=== PATIENT | male | born 1935 | race Caucasian/White ===

== ENCOUNTER 2020-04-20 10:00 | Outpatient (REF) | payer MEDICARE, SELFPAY ==
--- NOTE | 2020-04-20 | US_ITS ---
EXAMINATION: US THYROID CLINICAL INFORMATION: Nontoxic goiter. COMPARISON: Thyroid soft tissues dated 04/01/2019 and 03/30/2018. TECHNIQUE: Linear transducer cotto-scale and color Doppler examination with attention to the region of the thyroid. FINDINGS: SIZE: Measurements of the thyroid lobes and nodules are given in sagittal, anteroposterior and transverse dimensions respectively. Right Thyroid Lobe: 5.2 x 2.7 x 1.7 cm, volume 12.5 mL. Previously 4.4 x 1.7 x 1.6 cm, volume 6.3 mL. Parenchyma: The gland echotexture is heterogeneous. Thyroid vascularity is normal. Left Thyroid Lobe: 4.8 x 2.1 x 1.8 cm, volume 9.5 mL. Previously 4.2 x 2.3 x 1.5 cm, volume 7.2 mL. Parenchyma: The gland echotexture is heterogeneous. Thyroid vascularity is normal. Isthmus: 0.7 cm in maximum AP dimension. Previously 0.7 cm. RIGHT THYROID LOBE: There are 2 nodules seen. 1. Location: Upper. Size: 1.3 x 1.0 x 1.2 cm. Previous: 1.5 x 1.0 x 1.1 cm. Nodule characteristics: Solid and heterogeneously isoechoic with smooth margins. No evidence of calcifications or intranodular flow. No significant interval change. 2. Location: Lower. Size: 2.2 x 2.3 x 1.5 cm. Previous: New from previous. Nodule characteristics: It is unclear if this is truly a separate nodule or a pseudonodule due to the patient's underlying glandular heterogeneity. The area is very similar to the surrounding heterogeneous thyroid tissue. ISTHMUS: No nodules. LEFT THYROID LOBE: There is 1 nodule seen. 1. Location: Upper. Size: 0.7 x 0.5 x 0.6 cm. Previous: 0.7 x 0.6 x 0.6 cm. Nodule characteristics: Heterogeneously hypoechoic with smooth margins. No evidence of calcifications or intranodular flow. No significant interval change. NODES: No lymphadenopathy is seen in the tissue surrounding the thyroid gland. US/US thyroid IMPRESSION: Evaluation is limited due to the bulkiness and heterogeneity of the underlying thyroid tissue. There may be a new lower pole lesion within the right thyroid, however, this could also represent a pseudonodule. Continued sonographic surveillance is recommended. The 2 nodules that were already described are not significantly changed.
== END 2020-04-20 10:01 | disposition home or self-care (01) ==
LOC: HO.HMGCX 10:00
PROVIDERS: PCP Family Medicine; Visit Provider Family Medicine
DX: E04.9 Nontoxic goiter, unspecified (principal)
CPT/HCPCS: 76536

== ENCOUNTER 2020-04-30 15:13 | Outpatient (REF) | payer MEDICARE, SELFPAY | END 2020-04-30 15:14 | disposition home or self-care (01) | LOC: HO.LAB 15:13 | PROVIDERS: Visit Provider Internal Medicine | DX: Z20.828 Contact with and (suspected) exposure to other viral communicable diseases (principal) | CPT/HCPCS: C9803; U0003 ==

== ENCOUNTER 2020-05-12 12:54 | Outpatient (REF) | payer MEDICARE, SELFPAY ==
[2020-05-12 14:27] LABS: Alanine Aminotransferase 27 U/L (0-40); Anion Gap 11 (12-20); Blood Urea Nitrogen 13 mg/dL (9-16); Carbon Dioxide 29 mmol/L (22-29); Chloride 104 mmol/L (96-108); Potassium 4.9 mmol/l (3.3-5.1); Sodium 139 mmol/L (135-145)
== END 2020-05-12 12:55 | disposition home or self-care (01) ==
LOC: HO.HMGCLDS 12:54
PROVIDERS: PCP Family Medicine; Visit Provider Family Medicine
DX: I10 Essential (primary) hypertension (principal); E78.00 Pure hypercholesterolemia, unspecified; Z79.899 Other long term (current) drug therapy
CPT/HCPCS: 80051; 82550; 84460; 84520

== ENCOUNTER 2021-03-18 11:56 | Outpatient (REF) | payer MEDICARE, SELFPAY ==
[2021-03-18 12:59] LABS: Alanine Aminotransferase 24 U/L (0-40); Anion Gap 12 (12-20); Blood Urea Nitrogen 10 mg/dL (9-16); Carbon Dioxide 27 mmol/L (22-29); Chloride 104 mmol/L (96-108); Estimated Glomerular Filt Rate > 60; Potassium 4.6 mmol/L (3.3-5.1); Sodium 138 mmol/L (135-145)
== END 2021-03-18 11:57 | disposition home or self-care (01) ==
LOC: HO.LAB 11:56
PROVIDERS: PCP Family Medicine; Visit Provider Family Medicine
DX: I10 Essential (primary) hypertension (principal); E78.00 Pure hypercholesterolemia, unspecified; Z79.899 Other long term (current) drug therapy
CPT/HCPCS: 36415; 80051; 82550; 82565; 84460; 84520

== ENCOUNTER 2021-06-23 09:52 | Outpatient (REF) | payer MEDICARE, SELFPAY ==
--- NOTE | ~2021-06-23 | US_ITS ---
EXAMINATION: US THYROID CLINICAL INFORMATION: Follow-up thyroid nodules. COMPARISON: Ultrasound neck 04/20/2020. TECHNIQUE: Linear transducer grayscale and color Doppler examination with attention to the region of the thyroid. FINDINGS: SIZE: Measurements of the thyroid lobes and nodules are given in sagittal, anteroposterior and transverse dimensions respectively. Right Thyroid Lobe: 5.4 x 2.9 x 2.2 cm, volume 18.0 mL. Previously measured 5.2 x 2.7 x 1.7 cm and volume 12.5 mL. Parenchyma: The gland echotexture is heterogeneous. Thyroid vascularity is normal. Left Thyroid Lobe: 4.9 x 2.4 x 1.7 cm, volume 10.5 mL. Previously it measured 4.8 x 2.1 x 1.8 cm and volume 9.5 mL. Parenchyma: The gland echotexture is heterogeneous. Thyroid vascularity is normal. Isthmus: 0.6 cm in maximum AP dimension. Previously it measured 0.7 cm. Estimated total number of nodules greater than or equal to 1 cm: 1. Tank Car Loader nodules are described as follows: 1. Location: Right upper pole. Size: 1.0 x 0.7 x 1.0 cm, volume 0.4 mL. Previously it measured 1.3 x 1.0 x 1.2 cm and volume 0.8 mL. Nodule characteristics: Composition: Solid (2). Echogenicity: Hyperechoic (1). Shape: Wider than taller Margins: Smooth (0). Echogenic Foci: None (0). ACR TI-RADS total points: 3 ACR TI-RADS category: 3 2. Location: Right lower pole nodule seen previously is not visualized at this time. 3. Location: Left upper pole. Size: 0.6 x 0.6 x 0.5 cm, volume 0.1 mL. Previously it measured 0.7 x 0.5 x 0.6 cm and volume 0.1 mL. Nodule characteristics: Composition: Solid (2). Echogenicity: Hypoechoic Shape: Wider than taller Margins: Smooth (0). Echogenic Foci: None (0). ACR TI-RADS total points: 4 ACR TI-RADS category: 4 NODES: No lymphadenopathy is seen in the tissue surrounding the thyroid gland. US/US thyroid IMPRESSION: 2 cm and subcentimeter nodules seen in the right and left lobe which are non suspicious at this time by TI-RADS. ACR TI-RADS RECOMMENDATION REFERENCE: Ultrasound-guided fine-needle aspiration, followup ultrasound, no further follow up. * TR1 (0 point) and TR 2 (2 points): No FNA or follow up * TR3 (3 points): FNA if more than or equal to 2.5 cm in maximum dimension, followup ultrasound in 1, 3 and 5 years if 1.5 to 2.4 cm in maximum dimension. * TR4 (4-6 points): FNA if more than or equal to 1.5 cm in maximum dimension, followup ultrasound in 1, 2, 3 and 5 years if 1 to 1.4 cm in maximum dimension. * TR5 (more than or equal to 7 points): FNA if more than or equal to 1 cm in maximum dimension, followup ultrasound every year for 5 years if 0.5 to 0.9 cm in maximum dimension. * TR3, TR4 or TR5 nodules that are below the size threshold for follow up receive no follow up.
== END 2021-06-23 09:53 | disposition home or self-care (01) ==
LOC: HO.US 09:52
PROVIDERS: PCP Family Medicine; Visit Provider Family Medicine
DX: E04.2 Nontoxic multinodular goiter (principal)
CPT/HCPCS: 76536

== ENCOUNTER 2021-09-28 10:48 | Outpatient (REF) | payer MEDICARE, SELFPAY ==
[2021-09-28 12:30] LABS: Anion Gap 13 (12-20); Blood Urea Nitrogen 17 mg/dL (9-16); Carbon Dioxide 24 mmol/L (22-29); Chloride 105 mmol/L (96-108); Estimated Glomerular Filt Rate > 60; Potassium 4.8 mmol/L (3.3-5.1); Sodium 137 mmol/L (135-145)
== END 2021-09-28 10:49 | disposition home or self-care (01) ==
LOC: HO.LAB 10:48
PROVIDERS: PCP Family Medicine; Visit Provider Family Medicine
DX: I10 Essential (primary) hypertension (principal)
CPT/HCPCS: 36415; 80051; 82565; 84520

== ENCOUNTER 2021-12-29 10:41 | Outpatient (REF) | payer MEDICARE, SELFPAY ==
--- NOTE | ~2021-12-29 | XR_ITS ---
EXAMINATION: XR SHOULDER, LEFT CLINICAL INFORMATION: Pain. COMPARISON: Radiographs dated 08/01/2009. TECHNIQUE: AP neutral, scapular Y, and axillary views of the left shoulder. FINDINGS: Bony alignment and mineralization are normal. The left glenohumeral joint is intact. 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 The acromioclavicular and coracoclavicular intervals are normal. There is mild osteoarthritic change of the left acromioclavicular joint. No fracture or dislocation is seen. There is cortical irregularity of the greater tuberosity of the proximal left humerus. No abnormal soft tissue calcification is seen. There is no foreign body. No left pneumothorax is seen. XR/XR shoulder LT min 2V IMPRESSION: 1. 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 Findings are similar to prior. 2. No fracture or dislocation is seen.
== END 2021-12-29 10:42 | disposition home or self-care (01) ==
LOC: HO.HOSX 10:41
PROVIDERS: Visit Provider Physician Assistant
DX: S46.212A Strain of muscle, fascia and tendon of other parts of biceps, left arm, initial encounter (principal)
CPT/HCPCS: 73030; 99212

== ENCOUNTER 2022-03-28 10:52 | Outpatient (REF) | payer MEDICARE, SELFPAY ==
[2022-03-28 14:14] LABS: Alanine Aminotransferase 21 U/L (0-40); Anion Gap 13 (12-20); Blood Urea Nitrogen 16 mg/dL (9-16); Carbon Dioxide 26 mmol/L (22-29); Chloride 103 mmol/L (96-108); Estimated Glomerular Filt Rate > 60; Potassium 4.5 mmol/L (3.3-5.1); Sodium 137 mmol/L (135-145)
== END 2022-03-28 10:53 | disposition home or self-care (01) ==
LOC: HO.HMGCLDS 10:52
PROVIDERS: PCP Family Medicine; Visit Provider Family Medicine
DX: I10 Essential (primary) hypertension (principal); E78.00 Pure hypercholesterolemia, unspecified; Z79.899 Other long term (current) drug therapy
CPT/HCPCS: 36415; 80051; 82550; 82565; 84460; 84520

== ENCOUNTER 2022-05-25 13:08 | Outpatient (REF) | payer MEDICARE, SELFPAY ==
[2022-05-25 13:28] LABS: MANUAL DIFF FLAG NO
[2022-05-25 13:47] LABS: Basophils Percent Auto 0.3 % (0-2); Eosinophils Absolute Auto 0.1 X10*3/uL (0.0-0.4); Eosinophils Percent Auto 1.7 % (0-4); Hematocrit 35.1 % (42.0-52.0); Hemoglobin 11.7 g/dl (14.0-18.0); Imm Gran Abs Auto 0.01 X10*3/uL (0.00-0.03); Imm Gran Pct Auto 0.2 % (0.0-0.4); Lymphocytes Absolute Auto 1.6 X10*3/uL (1.2-4.9); Lymphocytes Percent Auto 28.2 % (20-40); Mean Corpuscular HGB Conc 33.3 g/dl (31.0-36.0); Mean Corpuscular Hemoglobin 31.5 pg (27.0-33.0); Mean Corpuscular Volume 94.6 fL (80.0-98.0); Mean Platelet Volume 8.2 fL (9.4-12.4); Monocytes Absolute Auto 0.9 X10*3/uL (0.1-1.2); Monocytes Percent Auto 15.1 % (2-11); Neutrophils Absolute Auto 3.1 x10*3/uL (2.0-8.3); Neutrophils Percent Auto 54.5 % (45-73); Platelet Count 313 X10*3/uL (160-400); Red Blood Count 3.71 X10*6/uL (4.60-5.80); Red Cell Distribution Width 12.7 % (11.0-16.0); White Blood Count 5.8 X10*3/uL (4.8-10.8)
[2022-05-25 14:30] LABS: Erythrocyte Sedimentation Rate 17 MM/HR (0-15)
[2022-05-25 14:57] LABS: Alanine Aminotransferase 24 U/L (0-40); Albumin Level 3.3 g/dL (3.5-5.0); Alkaline Phosphatase 57 U/L (39-117); Amylase 39 U/L (28-100); Aspartate Amino Transferase 27 U/L (5-37); Bilirubin Direct 0.2 mg/dL (0.0-0.5); Bilirubin Total 0.4 mg/dL (0.0-1.0); Lipase 42 U/L (8-78); Total Protein 5.6 g/dL (6.5-8.0)
== END 2022-05-25 13:09 | disposition home or self-care (01) ==
LOC: HO.LAB 13:08
PROVIDERS: PCP Family Medicine; Visit Provider Family Medicine
DX: R10.13 Epigastric pain (principal); R63.4 Abnormal weight loss
CPT/HCPCS: 36415; 80076; 82150; 82378; 83690; 85025; 85652

== ENCOUNTER 2022-05-26 11:32 | Outpatient (REF) | payer MEDICARE, SELFPAY ==
[2022-05-26 12:04] LABS: MANUAL DIFF FLAG NO
[2022-05-26 12:11] LABS: Basophils Percent Auto 0.4 % (0-2); Eosinophils Absolute Auto 0.1 X10*3/uL (0.0-0.4); Eosinophils Percent Auto 1.2 % (0-4); Hematocrit 38.6 % (42.0-52.0); Imm Gran Abs Auto 0.01 X10*3/uL (0.00-0.03); Imm Gran Pct Auto 0.1 % (0.0-0.4); Immature Retic Fraction 9.7 % (2.3-13.4); Lymphocytes Absolute Auto 1.9 X10*3/uL (1.2-4.9); Lymphocytes Percent Auto 27.7 % (20-40); Mean Corpuscular HGB Conc 33.7 g/dl (31.0-36.0); Mean Corpuscular Volume 95.1 fL (80.0-98.0); Mean Platelet Volume 8.3 fL (9.4-12.4); Monocytes Absolute Auto 1.1 X10*3/uL (0.1-1.2); Monocytes Percent Auto 15.3 % (2-11); Neutrophils Absolute Auto 3.8 x10*3/uL (2.0-8.3); Neutrophils Percent Auto 55.3 % (45-73); Platelet Count 317 X10*3/uL (160-400); Red Blood Count 4.06 X10*6/uL (4.60-5.80); Red Cell Distribution Width 12.7 % (11.0-16.0); Retic HGB Equivalent 35.8 pg (30.0-35.0); Reticulocyte Percent 0.9 % (0.5-1.8); Reticulocytes Absolute 0.036 X10*6/uL (0.026-0.095); White Blood Count 6.9 X10*3/uL (4.8-10.8)
[2022-05-26 12:54] LABS: Erythrocyte Sedimentation Rate 17 MM/HR (0-15)
[2022-05-26 13:12] LABS: Anion Gap 12 (12-20); Blood Urea Nitrogen 13 mg/dL (9-16); Carbon Dioxide 26 mmol/L (22-29); Chloride 100 mmol/L (96-108); Estimated Glomerular Filt Rate > 60; Ferritin 250 ng/mL (20-250); Iron 28 mcg/dL (45-160); Lactate Dehydrogenase 228 U/L (118-273); Percent Iron Saturation 15 % (15-50); Sodium 133 mmol/L (135-145); Total Iron Binding Capacity 189 mcg/dL (228-428); Unsaturated Iron Binding 161 ug/dL
[2022-05-26 13:23] LABS: Folate 18.1 ng/mL (> or = 4.0); Vitamin B12 473 pg/mL (200-900)
== END 2022-05-26 11:33 | disposition home or self-care (01) ==
LOC: HO.LAB 11:32
PROVIDERS: PCP Family Medicine; Visit Provider Family Medicine
DX: D64.9 Anemia, unspecified (principal); R53.81 Other malaise
CPT/HCPCS: 36415; 80051; 82565; 82607; 82728; 82746; 83540; 83615; 84520; 85025; 85045; 85652

== ENCOUNTER 2022-06-20 10:58 | Day surgery (SDC) | payer MEDICARE, SELFPAY ==
[2022-06-20] VITALS (7 sets, daily range): BP systolic 89–131; BP diastolic 46–63; PULSE 61–73; RESP 16; TEMP 36.3–36.9; O2SAT 96–100; BMI 22.6
--- NOTE | ~2022-06-20 | CT_ITS ---
EXAMINATION: CT COLONOGRAPHY CLINICAL INFORMATION: Obstructing mass at 50 cm. Assess more proximal colon COMPARISON: Portions of a CT 06/07/22 TECHNIQUE: Bowel preparation: Suboptimal. Stool tagging with Gastrografin and barium: Not utilized. Colonic distention: CO2 mechanical insufflator used via enema tube with incomplete distention. Acquisition: Low dose imaging targeted to colonic was performed in the supine and prone positions. Procedure: No immediate complication reported. Review: The acquired images were reviewed in axial, coronal and sagittal planes. Additional 3-D fly through images were reviewed at an independent workstation. This CT examination was performed using dose optimization techniques as appropriate, variously including the following: *Automated exposure control *Adjustment of mA and/or kV according to patient size (this includes techniques or standardized protocols for targeted exams where dose is matched to indication/reason for exam; i.e. extremities or head) *Use of iterative reconstruction technique DLP: 356 mGy-cm FINDINGS: [employer] Supervisor demonstrates narrowing in the proximal descending colon. Colonic findings: There is a large amount of retained fluid and some fecal residue. There is incomplete distention. There is an irregular circumferential 5 cm segment of fixed irregular narrowing in the proximal descending colon concerning for malignancy. Tissue diagnosis warranted. Although there is no large lesion in the more proximal colon smaller moderate-sized abnormalities could be obscured. Multiple retained densities in the more proximal colon could represent tablets. There is diverticular disease most numerous in the sigmoid colon. Non-colonic findings: There is at least a few nonspecific mesenteric lymph nodes. No large omental or mesenteric masses on this limited assessment. No convincing liver lesions on nonenhanced examination. No suspicious nodules in the visualized lung bases. CT/CT colonography IMPRESSION: Limited study. Circumferential narrowing likely related to malignancy in the proximal descending colon. No large abnormality on limited assessment of the more proximal colon.
[2022-06-20] MEDS: Lactated Ringers 1,000 ML 80 ML IVCONT (12:06)
--- NOTE | 2022-06-20 12:22 | P.CONAN_ITS ---
[facility] Active Problems Active Problems: All Active Problems (Updated 06/17/22 @ 12:24 by Myra Cason RN) Impacted cerumen of both ears (Acute) Tear of left biceps muscle (Acute) Past Medical History Medical History (Updated 06/17/22 @ 12:24 by Myra Cason RN) Abnormal colonoscopy Former smoker HTN (hypertension) Hyperlipidemia Family History Family history of problems with anesthesia: No Surgical History Surgical History (Updated 06/17/22 @ 12:24 by Myra Cason RN) History of appendectomy History of neck surgery History of Problems with Anesthesia: No Social History Social History Patient Tobacco Use Status: Former Tobacco user Use of substances other than those prescribed or required for medical reasons: No Are you DNR?: Yes Advance Directives: No Advance Directives Information Provided: Yes Current occupational status: retired 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 boulardii)) ascorbate calcium (vitamin C) 500 500 mg PO DAILY 06/01/21 12/15/21 Unknown History mg tablet aspirin 81 mg tablet,delayed 81 mg PO DAILY 06/01/21 12/15/21 Unknown History release (Adult Aspirin Regimen) cholecalciferol (vitamin D3) 50 50 mcg PO DAILY 06/01/21 12/15/21 Unknown History mcg (2,000 unit) capsule famotidine 40 mg tablet 40 mg PO QPM 06/01/21 12/15/21 Unknown History lisinopril 2.5 mg tablet 2.5 mg PO DAILY 06/01/21 06/20/22 06/20/22 History pebtwiwl-bie-bksmj acid 300 1 tab PO DAILY 06/01/21 12/15/21 Unknown History mcg-lycopene 600 mcg-lutein 300 mcg tablet (Centrum Silver Men) simvastatin 20 mg tablet 20 mg PO DAILY 06/01/21 12/15/21 Unknown History meloxicam 15 mg tablet 15 mg PO DAILY PRN 12/29/21 Unknown History Exam Exam Date and Time: June 20, 2022 1223 Height,Weight and Vital Signs: Height 5 ft 11 in Weight 73.482 kg Last Vital Signs Temp 98.1 F 06/20/22 11:51 Pulse 73 06/20/22 11:51 Resp 16 06/20/22 11:51 BP 131/63 06/20/22 11:51 Pulse Ox 98 06/20/22 11:51 O2 Del Method 06/20/22 11:51 Airway Mallampati Class: II TM Dist: >3cm Neck ROM: Full Partial: Upper Heart: rr Lungs: cta Assessment and Plan Assessment Anesthesia Assessment: Anesthesia Plan Discussed and Chart Reviewed Final Anesthetic Review Family History of Problems with Anesthesia: No History of Problems with Anesthesia: No NPO: Yes ASA Class: II Final Preanesthetic Review: No Changes in Pt Med Stat, Meds/Allgs Chart Reviewed and Consent Obtained/Reviewed Patient Risk: Low Procedure Risk: Low Anesthetic Plan Anesthetic Plan: MAC:
--- NOTE | 2022-06-20 13:25 | PM.OP ---
Brief Operative Note Date of Service: 06/20/22 Pre-op diagnosis: Abnormal CT of colon Post-op diagnosis: other (Colon mass at 50cm) Procedure: Colonoscopy to 50cm with biopsies and submucosal ink marking Surgeon: Misha Elliott Anesthesia: MAC Was an Inside Outside Sales Representative used for this Procedure?: No Estimated blood loss (mL): 3.0 Pathology: other (A. Mass at 50cm) Condition: stable Disposition: PACU
--- NOTE | 2022-06-20 23:24 | OP_ITS ---
SURGEON: Misha Elliott MD INDICATIONS: The patient presents for evaluation of change in bowel habits and abnormal CT scan of colon. Full consent has been obtained from him for this, including risks of bleeding and perforation. PREOPERATIVE DIAGNOSIS: POSTOPERATIVE DIAGNOSIS: PROCEDURE PERFORMED: Colonoscopy to 50 cm with biopsies and placement of submucosal ink manuel. ESTIMATED BLOOD LOSS: COMPLICATIONS: ANESTHESIA: Medication used, monitored anesthesia care. ASSISTANTS: SPECIMENS: PREOPERATIVE DIAGNOSES: Abnormal CT scan of colon and change in bowel habits. 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 DESCRIPTION OF PROCEDURE: The patient was placed in the left lateral decubitus position. The digital rectal exam revealed no abnormalities. The Olympus video pediatric colonoscope was entered into the rectum and advanced easily to a level of 50 cm. At this level, was an obstructing circumferential ulcerated mass consistent with carcinoma. The tissue was quite friable. I was able to visualize some lumen, but it was quite narrow and ulcerated and would not allow passage of the scope. Multiple biopsies were obtained from the mass. I did place a submucosal ink manuel just distal to the mass at 50 cm. The scope was then slowly withdrawn assessing all mucosal surfaces carefully. Preparation was excellent. I did not visualize any polyps, colitis, nor angiodysplasia. There was a mild amount of sigmoid diverticulosis. In the rectum, scope was retroflexed visualizing internal hemorrhoids, but no other pathology. The rectal mucosa appeared normal. The scope was straightened and withdrawn from the patient. He tolerated the procedure well and was returned to the recovery area in stable condition. IMPRESSION: 1. 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 Biopsies taken. 2. Placement of submucosal ink manuel at 50 cm. 3. Diverticulosis. 4. Internal hemorrhoids. PLAN: The results of the biopsies will be checked. We shall arrange for a surgical referral for as soon as possible given his symptoms and these findings. I shall arrange for a CT colonography today to try to rule out any significant lesions more proximally since we cannot get the scope past this lesion. He was advised to stay off his iron and aspirin long-term, and to stay on a very soft low residue diet until he sees the surgeon. He was advised to certainly go to the ER if he develops any increasing abdominal pain, distention, or vomiting. This has been discussed with his daughter, Marisela. MD BRAYDON Rasmussen/BANDAR / [phone] [id number]
== END 2022-06-20 15:45 | disposition home or self-care (01) ==
PROVIDERS: PCP Family Medicine; Visit Provider Internal Medicine
PROC: 0DJD8ZZ Inspection of Lower Intestinal Tract, Via Natural or Artificial Opening Endoscopic (ICD-10-PCS; CPT 45378; principal; 2022-06-20 12:30)
DX: R19.4 Change in bowel habit (principal); R93.3 Abnormal findings on diagnostic imaging of other parts of digestive tract; Z86.010 Personal history of colon polyps; C18.6 Malignant neoplasm of descending colon; K57.30 Diverticulosis of large intestine without perforation or abscess without bleeding; R63.4 Abnormal weight loss; Z68.23 Body mass index [BMI] 23.0-23.9, adult; I10 Essential (primary) hypertension; E78.5 Hyperlipidemia, unspecified; Z79.899 Other long term (current) drug therapy; Z87.891 Personal history of nicotine dependence
CPT/HCPCS: 45331; 45335; 74261; 88305; 88341; 88342

== ENCOUNTER → 2022-06-24 08:48 | Outpatient (BNVA) | payer MEDICARE, SELFPAY | PROVIDERS: PCP Family Medicine; Referring Provider Internal Medicine; Visit Provider Surgery | DX: C18.6 Malignant neoplasm of descending colon (principal) | CPT/HCPCS: 99202 ==

== ENCOUNTER 2022-06-24 22:43 | Inpatient (IN) | payer MEDICARE, SELFPAY ==
--- NOTE | ~2022-06-24 | XR_ITS ---
EXAMINATION: X-RAY CHEST X-RAY ABDOMEN CLINICAL INFORMATION: Fever. Known colonic mass, evaluate for bowel obstruction. COMPARISON: CT Colonography 06/20/2022. Chest radiograph 08/27/2011. TECHNIQUE: Single views of the chest and abdomen were obtained. FINDINGS: Normal appearance of the cardiomediastinal silhouette. Focal airspace opacities in the medial right lower lobe with otherwise clear lungs. No pleural effusion or pneumothorax. Nonspecific gastric dilatation. Dilated loop of bowel in the left lower quadrant measuring up to 4 cm in diameter with otherwise relatively gasless abdomen. No acute osseous abnormalities. XR/XR chest 1V IMPRESSION: 1. Focal airspace opacities in the medial right lower lobe which could represent atelectasis, aspiration or pneumonia. 2. Nonspecific gastric dilatation. 3. Dilated loop of bowel in the left lower quadrant which could be related with focal ileus in the absence of additional abnormally dilated loop of bowel. Recommend clinical correlation and attention on follow-up.
--- NOTE | ~2022-06-24 | XR_ITS ---
EXAMINATION: X-RAY CHEST X-RAY ABDOMEN CLINICAL INFORMATION: Fever. Known colonic mass, evaluate for bowel obstruction. COMPARISON: CT Colonography 06/20/2022. Chest radiograph 08/27/2011. TECHNIQUE: Single views of the chest and abdomen were obtained. FINDINGS: Normal appearance of the cardiomediastinal silhouette. Focal airspace opacities in the medial right lower lobe with otherwise clear lungs. No pleural effusion or pneumothorax. Nonspecific gastric dilatation. Dilated loop of bowel in the left lower quadrant measuring up to 4 cm in diameter with otherwise relatively gasless abdomen. No acute osseous abnormalities. XR/XR KUB IMPRESSION: 1. Focal airspace opacities in the medial right lower lobe which could represent atelectasis, aspiration or pneumonia. 2. Nonspecific gastric dilatation. 3. Dilated loop of bowel in the left lower quadrant which could be related with focal ileus in the absence of additional abnormally dilated loop of bowel. Recommend clinical correlation and attention on follow-up.
--- NOTE | ~2022-06-24 | CT_ITS ---
EXAMINATION: CT ABDOMEN AND PELVIS WITHOUT CONTRAST CLINICAL INFORMATION: Abdominal pain. Nausea, vomiting, diarrhea. COMPARISON: 06/20/2022 TECHNIQUE: Multidetector volumetric imaging was performed from the superior aspect of the liver through the pubic symphysis. Sagittal and coronal reformatted images were obtained on the technologist's workstation. This CT examination was performed using dose optimization techniques as appropriate, variously including the following: *Automated exposure control *Adjustment of mA and/or kV according to patient size (this includes techniques or standardized protocols for targeted exams where dose is matched to indication/reason for exam; i.e. extremities or head) *Use of iterative reconstruction technique DLP: 582 mGy-cm FINDINGS: LUNG BASES: Right middle lobe consolidation noted. No pleural effusion. The visualized cardiac structures are unremarkable. LIVER, GALLBLADDER, AND BILIARY TREE: The liver is normal in size, shape, and attenuation. No focal hepatic lesion or biliary ductal dilatation is present. The gallbladder is unremarkable with no evidence of radiopaque gallstones, gallbladder wall thickening, or obvious pericholecystic inflammatory changes. PANCREAS: Unremarkable. SPLEEN: Unremarkable. ADRENAL GLANDS: Unremarkable. KIDNEYS AND URETERS: The kidneys are normal in size, shape, and attenuation. No hydronephrosis, hydroureter, or calculi seen. No perinephric stranding. Right lower pole simple renal cyst. No follow-up imaging recommended. BLADDER: Unremarkable. GASTROINTESTINAL TRACT: Decompressed stomach. The proximal small bowel is decompressed, though the mid to distal small bowel is fluid-filled and prominent. This extends to the level of the terminal ileum. There is fluid-filled dilatation of the cecum, ascending colon, and transverse colon. At the level of the splenic flexure there is focal colonic wall thickening with mild adjacent stranding. This is the site of transition seen on the recent prior CT colonoscopy as well. Fecaliths are seen layering in the cecum. Additional probable fecalith at the area of narrowing in the proximal descending colon. Distal to this level the colon is decompressed. Diverticulosis at the sigmoid colon without diverticulitis. No free air. Trace free fluid. ABDOMINAL WALL: Small fat-containing inguinal hernias. LYMPH NODES: Normal. VASCULAR: Normal caliber aorta with moderate atherosclerotic calcification. PELVIC VISCERA: The prostate and seminal vesicles are unremarkable. OSSEOUS STRUCTURES: No acute or suspicious osseous abnormality. Degenerative changes throughout the spine. CT/CT abdomen pelvis wo IV con IMPRESSION: 1. Redemonstration of the area of circumferential colonic wall thickening at the proximal descending colon, concerning for malignancy. There is increased fluid-filled dilatation of small and large bowel proximal to this area of narrowing, consistent with worsening partial obstruction. There is a fecalith seen in this area which has progressed in position since the prior CT, suggesting that this may be resulting in worsening of the obstruction. 2. Right middle lobe consolidation noted. This could represent pneumonia or aspiration. This is new from 06/20/2022. Fleischner guidelines were followed.
[2022-06-24 22:50] VITALS: BP 138/78; BP 141/65; PULSE 105; PULSE 80; RESP 20; TEMP 39.1; O2SAT 95; BMI 24.5
--- NOTE | 2022-06-24 23:01 | PC.NURSE ---
THIS RN OBTAINED CARE OF PT AT 2300. DR PALMER MADE AWARE OF PT STATUS AT THIS TIME. AWAITING ORDERS AND ED PROVIDER TO ASSESS PATIENT
--- NOTE | 2022-06-24 23:11 | ED.NAVMDI ---
HPI - Nausea/Vomiting/Diarrhea General Chief complaint: Nausea/Vomiting/Diarrhea Stated complaint: n/v/d Time Seen by Provider: 06/24/22 23:00 Source: patient Mode of arrival: EMS Limitations: no limitations History of Present Illness HPI Narrative: Patient comes to the emergency room via EMS from home. Patient has been complaining of nausea vomiting diarrhea for the last couple of hours. Patient states that he has intense abdominal cramping. Patient complaining of chills, does not know he if he has fever. The patient 500 mL of normal saline and Zofran Of note, patient was seen today by Dr. 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 Patient is scheduled for surgery in 5 days for now. Patient is at high risk for obstruction. Patient has been instructed by his surgeon and primary care physician to stay on a liquid diet/protein shakes. Related Data Home Medications Medication Instructions Recorded Confirmed Saccharomyces boulardii 250 mg 250 mg PO BID 06/01/21 06/24/22 capsule (Daily Probiotic (S. boulardii)) ascorbate calcium (vitamin C) 500 500 mg PO DAILY 06/01/21 06/24/22 mg tablet aspirin 81 mg tablet,delayed 81 mg PO DAILY 06/01/21 06/24/22 release (Adult Aspirin Regimen) cholecalciferol (vitamin D3) 50 50 mcg PO DAILY 06/01/21 06/24/22 mcg (2,000 unit) capsule famotidine 40 mg tablet 40 mg PO QPM 06/01/21 06/24/22 lisinopril 2.5 mg tablet 2.5 mg PO DAILY 06/01/21 06/24/22 wpdssnvu-wly-glbna acid 300 1 tab PO DAILY 06/01/21 06/24/22 mcg-lycopene 600 mcg-lutein 300 mcg tablet (Centrum Silver Men) simvastatin 20 mg tablet 20 mg PO DAILY 06/01/21 06/24/22 meloxicam 15 mg tablet 15 mg PO DAILY PRN Pain 12/29/21 06/24/22 Previous Rx's Medication Instructions Recorded erythromycin 500 mg tablet 1 g PO .COMPLEX #6 tabs 06/24/22 magnesium citrate 296 ml PO .COMPLEX #296 mL 06/24/22 neomycin 500 mg tablet 1 g PO TID 3 doses #6 tabs 06/24/22 Allergies Allergy/AdvReac Type Severity Reaction Status Date / Time No Known Allergies Allergy Verified 06/24/22 09:23 Review of Systems Review of Systems: Constitutional : No Weight loss, No Fever, complaining of Chills, No Night Sweats, No Fatigue, No Malaise ENT/Mouth : No Hearing loss, No Ear Pain, No Nasal Congestion, No Sinus Pain, No Hoarseness, No sore throat, No Rhinorrhea, No Swallowing Difficulty Eyes: No Eye Pain, No Swelling, No Redness, No Foreign Body, No Discharge, No Vision Changes Cardiovascular : No Chest Pain, No SOB, No Dyspnea on Exertion, No Orthopnea, No Edema, No Palpitations Respiratory : No Cough, No Sputum, No Wheezing, No Smoke Exposure, No Dyspnea Gastrointestinal : Complaining of nausea vomiting and diarrhea, No Constipation, No abdominal Pain, No Hematochezia, No Melena Genitourinary : no irregular bleeding, No Dysuria, No Urinary Frequency, No Hematuria, No Urinary Incontinence, No Urgency, No Flank Pain, No Urinary Flow Changes, No Hesitancy Musculoskeletal : No joint pain, No Myalgias, No Joint Swelling Skin : No Skin Lesions, No rash Neuro : No Weakness, No Numbness, No Paresthesias, No Loss of Consciousness, No Dizziness, No Headache Psych : No Anxiety/Panic, No Depression, No SI/HI/AH/VH, No Social Issues, Heme/Lymph: No Bruising, No Bleeding,No Lymphadenopathy Endocrine : No Polyuria, No Polydipsia, No Temperature Intolerance PMFSH Past Medical History Medical History Abnormal colonoscopy Former smoker HTN (hypertension) Hyperlipidemia Surgical History History of appendectomy History of carpal tunnel release History of colonoscopy History of neck surgery Family History Family History Father Prostate cancer Social History Social History Patient Tobacco Use Status: Former Tobacco user Advance Directives: No Advance Directives Information Provided: Yes Current occupational 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 Oriented X3. No acute distress. Overall feeling better at this time. Eyes: Pupils equal, round and reactive to light. ENT: Pharynx normal. Neck: Normal inspection. Neck supple. No lymph nodes noted. No crepitus CVS: Normal heart rate and rhythm. Pulses normal. Normal S1 and S2 Respiratory: No respiratory distress. Breath sounds normal. No Wheezing. No rales Abdomen: Soft and nontender. No rigidity. No distention, no rebound or guarding Skin: Skin warm and dry. Normal skin color. Normal skin turgor. Extremities: No lower extremity edema. No Lacerations. No Rash Neuro: Oriented X 3. No motor deficit. No sensory deficit. Moving all extremities. No slurred speech. CN 2 through 12 grossly intact Psych: calm, cooperative, normal affect Course Course Course Narrative: Patient received Zofran and IV fluids per EMS. At this time, patient receiving fluids and Tylenol. Patient states that he is no longer nauseous or having abdominal pain at this time. Labs and KUB pending When patient arrived, patient had temperature 102.3 degrees, tachycardic, blood pressure 141/65. Lactic acid 3.3, white blood cell count within normal limits. All this likely secondary to dehydration from vomiting and diarrhea rather than sepsis. Patient reports that he has had no URI symptoms at all, unlikely that patient has pneumonia. Patient was empirically treated with antibiotics and IV fluids. EMS gave the patient 0.5 L of normal saline bolus, I gave the patient 2 L, total of 2500 mL bolus Patient did get Zofran for vomiting, I did not give the patient loperamide. Patient is at high risk of complete intestinal obstruction Patient feeling weak, I discussed the patient with Dr. De Leon, patient being admitted Medications Administered Generic Name Dose Route Start Last Admin Trade Name Freq PRN Reason Stop Dose Admin Azithromycin 500 mg/ Sodium 250 mls @ 125 mls/hr 06/25/22 00:07 06/25/22 00:58 Chloride IV 06/25/22 02:06 125 mls/hr ONCE ONE Administration Discontinued Medications Generic Name Dose Route Start Last Admin Trade Name Destiny PRN Reason Stop Dose Admin Acetaminophen 975 mg 06/24/22 23:00 06/24/22 23:28 Acetaminophen 325 Mg Tablet PO 06/24/22 23:01 975 mg ONCE ONE Administration Sodium Chloride 2,000 mls @ 999 mls/hr 06/24/22 23:00 06/25/22 01:14 Ns IVCONT 06/25/22 01:00 Infused .Q2H1M ONE Infusion Ceftriaxone Sodium 1 gm/ 50 mls @ 100 mls/hr 06/25/22 00:07 06/25/22 00:57 Sodium Chloride IV 06/25/22 00:36 Infused ONCE ONE Infusion Medical Decision Making Differential Diagnosis Differential Diagnoses: The differential diagnosis associated with the presentation includes (Gastroenteritis, pneumonia, pseudo obstruction) Admission/Observation Consideration of admission/observation: Escalation of care including admission/observation considered (Patient feeling weak, overwhelmed about his new diagnosis, patient does have fever, elevated lactic acid.) Consult Healthcare Provider Management of the patient was discussed with: Hospitalist Dr. De Leon accepted the pt Lab Data MDM Lab Attestation statement: I reviewed the patient's lab results. 06/24/22 23:09 06/24/22 23:09 Labs: Lab Results 06/24/22 06/24/22 06/24/22 Range/Units 23:09 23:09 23:09 WBC 10.5 (4.8-10.8) X10*3/uL RBC 4.09 L (4.60-5.80) X10*6/uL Hgb 12.6 L (14.0-18.0) g/dl Hct 38.5 L (42.0-52.0) % MCV 94.1 (80.0-98.0) fL MCH 30.8 (27.0-33.0) pg MCHC 32.7 (31.0-36.0) g/dl RDW 13.4 (11.0-16.0) % Plt Count 376 (160-400) X10*3/uL MPV 8.3 L (9.4-12.4) fL Immature Gran % (Auto) 0.1 (0.0-0.4) % Neut % (Auto) 88.3 H (45-73) % Lymph % (Auto) 8.0 L (20-40) % Culberson % (Auto) 3.4 (2-11) % Eos % (Auto) 0.0 (0-4) % Baso % (Auto) 0.2 (0-2) % Lymph # (Auto) 0.8 L (1.2-4.9) X10*3/uL [place]berson # (Auto) 0.4 (0.1-1.2) X10*3/uL Eos # (Auto) 0.0 (0.0-0.4) X10*3/uL Baso # (Auto) 0.0 (0.0-0.2) X10*3/uL Abs Immat Gran (auto) 0.01 (0.00-0.03) X10*3/uL Absolute Neuts (auto) 9.2 H (2.0-8.3) x10*3/uL Absolute Nucleated RBC 0.000 (0.0-0.012) X10*3/uL Nucleated RBC % (auto) 0.0 (0.0-0.2) /100WBC PT 14.9 H (10.0-13.1) SEC INR 1.3 H (0.9-1.1) Sodium 135 (135-145) mmol/L Potassium 4.9 (3.3-5.1) mmol/L Chloride 102 (96-108) mmol/L Carbon Dioxide 23 (22-29) mmol/L Anion Gap 15 (12-20) BUN 21 H (9-16) mg/dL Creatinine 0.97 (0.5-1.4) mg/dL Estim Creat Clear Calc 58.2 Estimated GFR > 60 POC Glucose (60-115) mg/dL Random Glucose 204 H (60-115) mg/dL Lactic Acid (0.5-2.0) mmol/L Calcium 9.1 (8.4-10.2) mg/dL Magnesium 1.8 (1.6-2.6) mg/dL Total Bilirubin 0.8 (0.0-1.0) mg/dL Direct Bilirubin 0.4 (0.0-0.5) mg/dL AST 32 (5-37) U/L ALT 29 (0-40) U/L Alkaline Phosphatase 70 (39-117) U/L Troponin I High Sens (<3.5-35.0) ng/L Total Protein 6.7 (6.5-8.0) g/dL Albumin 3.6 (3.5-5.0) g/dL Lipase 25 (8-78) U/L COVID-19 (OCTAVIANO) (Negative) COVID-19 Clin Com 06/24/22 06/24/22 06/24/22 Range/Units 23:09 23:09 23:09 WBC (4.8-10.8) X10*3/uL RBC (4.60-5.80) X10*6/uL Hgb (14.0-18.0) g/dl Hct (42.0-52.0) % MCV (80.0-98.0) fL MCH (27.0-33.0) pg MCHC (31.0-36.0) g/dl RDW (11.0-16.0) % Plt Count (160-400) X10*3/uL MPV (9.4-12.4) fL Immature Gran % (Auto) (0.0-0.4) % Neut % (Auto) (45-73) % Lymph % (Auto) (20-40) % Culberson % (Auto) (2-11) % Eos % (Auto) (0-4) % Baso % (Auto) (0-2) % Lymph # (Auto) (1.2-4.9) X10*3/uL Culberson # (Auto) (0.1-1.2) X10*3/uL Eos # (Auto) (0.0-0.4) X10*3/uL Baso # (Auto) (0.0-0.2) X10*3/uL Abs Immat Gran (auto) (0.00-0.03) X10*3/uL Absolute Neuts (auto) (2.0-8.3) x10*3/uL Absolute Nucleated RBC (0.0-0.012) X10*3/uL Nucleated RBC % (auto) (0.0-0.2) /100WBC PT (10.0-13.1) SEC INR (0.9-1.1) Sodium (135-145) mmol/L Potassium (3.3-5.1) mmol/L Chloride (96-108) mmol/L Carbon Dioxide (22-29) mmol/L Anion Gap (12-20) BUN (9-16) mg/dL Creatinine (0.5-1.4) mg/dL Estim Creat Clear Calc Estimated GFR POC Glucose (60-115) mg/dL Random Glucose (60-115) mg/dL Lactic Acid 3.3 H* (0.5-2.0) mmol/L Calcium (8.4-10.2) mg/dL Magnesium (1.6-2.6) mg/dL Total Bilirubin (0.0-1.0) mg/dL Direct Bilirubin (0.0-0.5) mg/dL AST (5-37) U/L ALT (0-40) U/L Alkaline Phosphatase (39-117) U/L Troponin I High Sens 4.6 (<3.5-35.0) ng/L Total Protein (6.5-8.0) g/dL Albumin (3.5-5.0) g/dL Lipase (8-78) U/L COVID-19 (OCTAVIANO) Negative (Negative) COVID-19 Clin Com See Note 06/24/22 Range/Units 23:09 WBC (4.8-10.8) X10*3/uL RBC (4.60-5.80) X10*6/uL Hgb (14.0-18.0) g/dl Hct (42.0-52.0) % MCV (80.0-98.0) fL MCH (27.0-33.0) pg MCHC (31.0-36.0) g/dl RDW (11.0-16.0) % Plt Count (160-400) X10*3/uL MPV (9.4-12.4) fL Immature Gran % (Auto) (0.0-0.4) % Neut % (Auto) (45-73) % Lymph % (Auto) (20-40) % Culberson % (Auto) (2-11) % Eos % (Auto) (0-4) % Baso % (Auto) (0-2) % Lymph # (Auto) (1.2-4.9) X10*3/uL [place]berson # (Auto) (0.1-1.2) X10*3/uL Eos # (Auto) (0.0-0.4) X10*3/uL Baso # (Auto) (0.0-0.2) X10*3/uL Abs Immat Gran (auto) (0.00-0.03) X10*3/uL Absolute Neuts (auto) (2.0-8.3) x10*3/uL Absolute Nucleated RBC (0.0-0.012) X10*3/uL Nucleated RBC % (auto) (0.0-0.2) /100WBC PT (10.0-13.1) SEC INR (0.9-1.1) Sodium (135-145) mmol/L Potassium (3.3-5.1) mmol/L Chloride (96-108) mmol/L Carbon Dioxide (22-29) mmol/L Anion Gap (12-20) BUN (9-16) mg/dL Creatinine (0.5-1.4) mg/dL Estim Creat Clear Calc Estimated GFR POC Glucose 183 H (60-115) mg/dL Random Glucose (60-115) mg/dL Lactic Acid (0.5-2.0) mmol/L Calcium (8.4-10.2) mg/dL Magnesium (1.6-2.6) mg/dL Total Bilirubin (0.0-1.0) mg/dL Direct Bilirubin (0.0-0.5) mg/dL AST (5-37) U/L ALT (0-40) U/L Alkaline Phosphatase (39-117) U/L Troponin I High Sens (<3.5-35.0) ng/L Total Protein (6.5-8.0) g/dL Albumin (3.5-5.0) g/dL Lipase (8-78) U/L COVID-19 (OCTAVIANO) (Negative) COVID-19 Clin Com Independent Interpretation I performed an independent interpretation of an: Plain X-Ray (My interpretation KUB: No air-fluid levels) Radiology Impression Discussion of test interpretation with radiology: I have reviewed the radiologist's reading. Radiologist Impression: IMPRESSION: 1.? Focal airspace opacities in the medial right lower lobe which could represent atelectasis, aspiration or pneumonia. 2.? Nonspecific gastric dilatation. 3.? Dilated loop of bowel in the left lower quadrant which could be related with focal ileus in the absence of additional abnormally dilated loop of bowel. Recommend clinical correlation and attention on follow-up. ? Critical Care Time Critical Care Time Critical Care Time: Yes Total Critical Care Time: 60 Attestation: I have personally provided critical care time. Time includes review of lab data, radiology results, discussion with consultants, and monitoring for potential decompensation. Intervention performed as documented. Discharge Plan Discharge Clinical Impression: Nausea vomiting and diarrhea, Acute dehydration Patient Disposition: Admitted As Inpatient
[2022-06-24 23:13] LABS: Glucose, Whole Blood 183 mg/dL (60-115)
[2022-06-24] MEDS: 0.9 % Sodium Chloride 2,000 ML 999 ML IVCONT (23:13)
[2022-06-24 23:15] LABS: MANUAL DIFF FLAG NO
[2022-06-24 23:16] LABS: Basophils Percent Auto 0.2 % (0-2); Hematocrit 38.5 % (42.0-52.0); Hemoglobin 12.6 g/dl (14.0-18.0); Imm Gran Abs Auto 0.01 X10*3/uL (0.00-0.03); Imm Gran Pct Auto 0.1 % (0.0-0.4); Lymphocytes Absolute Auto 0.8 X10*3/uL (1.2-4.9); Mean Corpuscular HGB Conc 32.7 g/dl (31.0-36.0); Mean Corpuscular Hemoglobin 30.8 pg (27.0-33.0); Mean Corpuscular Volume 94.1 fL (80.0-98.0); Mean Platelet Volume 8.3 fL (9.4-12.4); Monocytes Absolute Auto 0.4 X10*3/uL (0.1-1.2); Monocytes Percent Auto 3.4 % (2-11); Neutrophils Absolute Auto 9.2 x10*3/uL (2.0-8.3); Neutrophils Percent Auto 88.3 % (45-73); Platelet Count 376 X10*3/uL (160-400); Red Blood Count 4.09 X10*6/uL (4.60-5.80); Red Cell Distribution Width 13.4 % (11.0-16.0); White Blood Count 10.5 X10*3/uL (4.8-10.8)
[2022-06-24 23:21] LABS: INTERNATIONAL NORM RATIO 1.3 (0.9-1.1); Prothrombin Time 14.9 SEC (10.0-13.1)
[2022-06-24] MEDS: Acetaminophen 325 MG TABLET 975 MG PO (23:28)
[2022-06-24 23:33] LABS: COVID-19 Test Negative (Negative); IDNOW Serial# 9DB6401D
[2022-06-24 23:35] VITALS: BP 126/46; PULSE 94; RESP 20; TEMP 37.7; O2SAT 93
[2022-06-24 23:36] LABS: Alanine Aminotransferase 29 U/L (0-40); Albumin Level 3.6 g/dL (3.5-5.0); Alkaline Phosphatase 70 U/L (39-117); Anion Gap 15 (12-20); Aspartate Amino Transferase 32 U/L (5-37); Bilirubin Direct 0.4 mg/dL (0.0-0.5); Bilirubin Total 0.8 mg/dL (0.0-1.0); Blood Urea Nitrogen 21 mg/dL (9-16); Calcium 9.1 mg/dL (8.4-10.2); Carbon Dioxide 23 mmol/L (22-29); Chloride 102 mmol/L (96-108); Creatinine Clr Calc Pharmacy 58.2; Estimated Glomerular Filt Rate > 60; Glucose Random 204 mg/dL (60-115); Lipase 25 U/L (8-78); Magnesium 1.8 mg/dL (1.6-2.6); Potassium 4.9 mmol/L (3.3-5.1); Sodium 135 mmol/L (135-145); Total Protein 6.7 g/dL (6.5-8.0)
[2022-06-24 23:39] LABS: Troponin-I High Sensitivity 4.6 ng/L (<3.5-35.0)
[2022-06-24 23:40] LABS: Lactic Acid 3.3 mmol/L (0.5-2.0)
--- NOTE | 2022-06-24 23:52 | PC.NURSE ---
pt daughter marisela called. this rn confirmed with pt that it is okay that we talk with daughter about updates. pt states this is okay. informed pt's daughter of pt status and plan thus far. Marisela can be reached at [phone]
[2022-06-25] VITALS (11 sets, daily range): BP systolic 98–122; BP diastolic 47–63; PULSE 73–89; RESP 16–22; TEMP 36.1–38.4; O2SAT 94–99
[2022-06-25] MEDS: cefTRIAXone sodium 1 GM in 0.9 % Sodium Chloride 50 ML IV (00:28)
--- OUTSIDE RECORDS SUMMARY | 2022-06-25 00:29 | XMS_ITS ---
:1935 Author Organization [facility] Address [address] [place], [place] [address] Care Team Providers Name Role Phone Max Elliott Unavailable Unavailable PROBLEMS Type Condition ICD9-CM Code [id number] Code Onset Condition SNO MED Code Dates Status Problem Abnormal CT R93.3 Active 55042197 1 scan, colon Problem Change in bowel R19.4 Active 8811 1009 habits ALLERGIES No Known Allergies ENCOUNTERS Encounter Location Date Diagnosis [place] [address] [facility] [address] [place] [phone] [place] [address] [facility] [address] [place] [phone] [facility] [place] Outpatient [address] Jun, [place] [id number] [facility] [address], [place] [facility] [address] [place] [address] [place] [address] scan, colon R93. [address] [place] [address], [facility] [address] [place] [phone] [facility] [address], [facility] [address] [place] [phone] [facility] [place] Outpatient [address] Jun[place] [id number] [facility] [place] ER [address] Mar, [place] [id number] [facility] [place] Outpatient [address] Feb, [place] [id number] [facility] [place] ER [address] Sep, [place] [phone] IMMUNIZATIONS Vaccine Route Administration Date Status Influenza Unknown Feb 10, 2022 Administered SOCIAL HISTORY Qualifiers Date Former Smoker REASON FOR REFERRAL FUNCTIONAL STATUS PLAN OF CARE Activity Details Pending Test Pathology Future/Pending Procedure COLONOSCOPY [id number] VITAL SIGNS Weight 169 lbs 2022-06-16 Height 71 in 2022-06-16 BMI 23.57 kg/m2 2022-06-16 Temperature 97.1 degrees Fahrenheit 2022-06-16 Blood pressure systolic 000 mm Hg 2022-06-16 Blood pressure diastolic 00 mm Hg 2022-06-16 MEDICATIONS Medication Instructions Dosage Frequency Start End Duration Statu s Date Date Magnesium 400 MG as directed Act linnette Move Free Joint as directed Acti ve Health Advance - Multivitamin Orally Once a 1 tablet 24h 30 day(s) Ac tive Adult - day Simvastatin 20 TAKE 1 90 Active MG TABLET BY MOUTH DAILY Vitamin C 1000 Orally Once a 1 tablet 24h 30 day(s) Active MG day Probiotic - as directed Active Famotidine 40 MG TAKE 1 90 Active TABLET BY MOUTH EVERY DAY AT SUPPER TIME Iron (Ferrous Orally Once a 1 tablet 24h Act linnette Sulfate) 325 (65 day Fe) MG Low-Dose Aspirin as directed Act linnette 81 MG Vitamin D3 50 Orally Once a 1 tablet 24h 30 day(s) A ctive MCG (1999) day Lisinopril 2.5 TAKE 1 90 Active MG TABLET BY MOUTH ONCE EVERY DAY DIRECTED PROCEDURES Procedure Date Ordered Result Body Site BP SCR NOT PRFRM REC REASON NOS Jun 16, 2022 TOBACCO NON-USER Jun 16, 2022 DOC MEDS VERIFIED W/PT OR RE Jun 16, 2022 RESULTS Name Result Date Reference Range CT colonography 2022-06-20 REASON FOR VISIT [facility] surgeons appt , change in bowels,abn ct scan colon, patient presents today for discuss ct scan, office appt on 06-16-2022 Insurance Providers [facility] [employer] [facility] Patient Patient Patient Patient Patient Subscriber Subscriber Subscriber Group Insurance Plan Plan Plan Plan ID Relationship Address Phone Name Date of ID Name Date of No Type Insurance Insurance Insurance Coverage to Subscriber Address Phone Name Dates [facility] [phone] [facility] [place] [id number] [place] [address] [facility] [address] [place] [id number]
--- NOTE | 2022-06-25 00:33 | PC.NURSE ---
pt medicated according to mar. pt arrousable to name. a and o x4. VS updated at this time. IV fluids running at this time
[2022-06-25] MEDS: Azithromycin 500 MG in 0.9 % Sodium Chloride 250 ML 125 MG IV (00:58)
[2022-06-25 01:13] LABS: Reflex Lactate? Lactic Acid Added
[2022-06-25 02:10] LABS: ~Lactic Acid-LAB USE ONLY 2.1 mmol/L (0.5-2.0)
--- NOTE | 2022-06-25 02:18 | PC.NURSE ---
med rec completed by this rn at this time. pt provided this rn with updated medication list. Dr De Leon notified
[2022-06-25] MEDS: Ampicillin Sodium/Sulbactam Na 3 GM in 0.9 % Sodium Chloride 100 ML IV ×3 (02:49→18:02)
[2022-06-25] MEDS: Lactated Ringers 1,000 ML 80 ML IVCONT ×2 (02:49→21:06)
[2022-06-25] MEDS: Enoxaparin Sodium 40 MG/0.4 ML SYRINGE SUBCUT (02:49)
--- NOTE | 2022-06-25 03:22 | PC.NURSE ---
this rn tried to obtain urine on pt. assisted pt in using urinal at bedside. pt unable to produce urine. this rn performed bladder scan on pt at this time. bladder scan showed 40-41ml of urine in bladder. Dr De Leon notified at this time. awaiting orders from provider
[2022-06-25 03:26] LABS: Reflex Lactate? 2 Y
--- NOTE | 2022-06-25 03:57 | PC.NURSE ---
this nurse called report to S3 RN. dr parekh notified of BP 98/47 no new orders at this time. LR running naren. pt a+o x 4pt. transferred on stretcher by transport medic
[2022-06-25 04:23] LABS: MANUAL DIFF FLAG NO
[2022-06-25 04:26] LABS: Basophils Percent Auto 0.2 % (0-2); Hematocrit 33.9 % (42.0-52.0); Hemoglobin 11.2 g/dl (14.0-18.0); Imm Gran Abs Auto 0.04 X10*3/uL (0.00-0.03); Imm Gran Pct Auto 0.3 % (0.0-0.4); Lymphocytes Absolute Auto 2.2 X10*3/uL (1.2-4.9); Mean Corpuscular Hemoglobin 31.1 pg (27.0-33.0); Mean Corpuscular Volume 94.2 fL (80.0-98.0); Mean Platelet Volume 8.4 fL (9.4-12.4); Monocytes Absolute Auto 1.2 X10*3/uL (0.1-1.2); Monocytes Percent Auto 8.4 % (2-11); Neutrophils Absolute Auto 10.4 x10*3/uL (2.0-8.3); Neutrophils Percent Auto 75.1 % (45-73); Platelet Count 313 X10*3/uL (160-400); Red Cell Distribution Width 13.5 % (11.0-16.0); White Blood Count 13.9 X10*3/uL (4.8-10.8)
[2022-06-25 04:35] LABS: ~Lactic Acid-LAB USE ONLY 1.1 mmol/L (0.5-2.0)
[2022-06-25 04:48] LABS: Anion Gap 13 (12-20); Blood Urea Nitrogen 23 mg/dL (9-16); Calcium 8.5 mg/dL (8.4-10.2); Carbon Dioxide 23 mmol/L (22-29); Chloride 106 mmol/L (96-108); Creatinine Clr Calc Pharmacy 68.8; Estimated Glomerular Filt Rate > 60; Glucose Random 115 mg/dL (60-115); Potassium 4.4 mmol/L (3.3-5.1); Sodium 138 mmol/L (135-145)
--- NOTE | 2022-06-25 06:46 | PM.IMHP ---
History of Present Illness Date of Service: 06/25/22 Chief Complaint: abdominal distension 86-year-old male with past medical history of hypertension, hyperlipidemia, recently diagnosed colon cancer presents to the hospital with complaints of abdominal bloating, as well as nausea vomiting and diarrhea. Patient reports that ever since being diagnosed with colon cancer in April he has had bloating in the abdomen and chronic intermittent cramping pain. he is planned for surgical intervention on the following week for his colon cancer and has been on a liquid diet for that. Patient reports that his symptoms of diarrhea nausea vomiting started a 22:00 the night before, and he felt his abdomen become more firm, and had multiple episodes of vomiting. Patient denies any shortness of breath, no cough, no fever or chills, no urinary symptoms and no lower extremity edema. He reports that ever since coming to the ED has not had any further episodes of nausea vomiting or diarrhea. On arrival to the ED patient hemodynamically stable with a fever of 102.3, heart rate of 105, blood pressure stable Labs are significant for WBC count of 10.5, hemoglobin of 12.6, hematocrit 38.5, lactic acid of 3.3 improved after IV fluids, labs otherwise unremarkable abdomen pelvic CT shows redemonstration of area of circumferential colonic wall thickening concerning for malignancy, partial small-bowel obstruction, and right middle lobe consolidation which can represent pneumonia or aspiration patient will be admitted for further management Review of Systems Review of Systems: Yes all other systems are reviewed and are negative [facility] Medical History Abnormal colonoscopy Former smoker HTN (hypertension) Hyperlipidemia Family History Father Prostate cancer Surgical History History of appendectomy History of carpal tunnel release History of colonoscopy History of neck surgery Social History Household Members: Family Housing: House Patient Tobacco Use Status: Former Tobacco user Smoked in Last 30 Days: No Use of substances other than those prescribed or required for medical reasons: No Currently Displaying Signs/Symptoms of Drug Intoxication Withdrawal: No Any prior treatment program specific to substance use: No Have you been hit, kicked, punched, or otherwise hurt by someone within the past year? 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 Allergies Allergy/AdvReac Type Severity Reaction Status Date / Time No Known Allergies Allergy Verified 06/24/22 09:23 Active Medications: Current Medications Acetaminophen (Acetaminophen 325 Mg Tablet) 650 mg PO Q6H PRN PRN Reason: Pain, Mild (Pain Scale 1-3) Docusate Sodium (Docusate Sodium 100 Mg Capsule) 100 mg PO DAILY PRN PRN Reason: Constipation Enoxaparin Sodium (Enoxaparin Sodium 40 Mg/0.4 Ml Syringe) 40 mg SUBCUT Q24H [facility] Last Admin: 06/25/22 02:49 Dose: 40 mg Lactated Ringer's (Lr) 1,000 mls @ 80 mls/hr IVCONT .[id number] [facility] Last Admin: 06/25/22 02:49 Dose: 80 mls/hr Ampicillin Sodium/Sulbactam (Sodium 3 gm/ Sodium Chloride) 100 mls @ 200 mls/hr IV Q8H [facility] Last Infusion: 06/25/22 03:20 Dose: Infused Ondansetron HCl (Ondansetron Hcl 4 Mg/2 Ml Vial) 4 mg IVPUSH Q8H PRN PRN Reason: Nausea and Vomiting Sodium Chloride (0.9 % Sodium Chloride Flush 3 Ml Syringe) 3 ml IVFLUSH QSHIFT [facility] Home Medications Medication Instructions Recorded Confirmed Last Taken Type Saccharomyces boulardii 250 mg 250 mg PO BID 06/01/21 06/25/22 Unknown History capsule (Daily Probiotic (S. boulardii)) ascorbate calcium (vitamin C) 500 500 mg PO DAILY 06/01/21 06/25/22 Unknown History mg tablet cholecalciferol (vitamin D3) 50 50 mcg PO DAILY 06/01/21 06/25/22 Unknown History mcg (2,000 unit) capsule famotidine 40 mg tablet 40 mg PO QPM 06/01/21 06/25/22 Unknown History lisinopril 2.5 mg tablet 2.5 mg PO DAILY 06/01/21 06/25/22 06/20/22 History xnoewfbu-vyo-kpsqb acid 300 1 tab PO DAILY 06/01/21 06/25/22 Unknown History mcg-lycopene 600 mcg-lutein 300 mcg tablet (Centrum Silver Men) simvastatin 20 mg tablet 20 mg PO DAILY 06/01/21 06/25/22 Unknown History Physical Exam Vital Signs and Narrative: Vital Signs: Last Vital Signs Temp 98.3 F 06/25/22 04:28 Pulse 76 06/25/22 04:28 Resp 20 06/25/22 04:28 BP 104/55 L 06/25/22 04:28 Pulse Ox 95 06/25/22 04:28 O2 Del Method 06/25/22 04:28 BMI result Body Mass Index 24.5 Const: General: cooperative and no acute distress Orientation/consciousness: patient oriented x3 Eyes: General: appearance normal, both eyes and all related structures Resp: Effort & Inspection: normal respiratory effort Auscultation: clear to auscultation bilaterally Cardio: Rate: regular rate Rhythm: regular rhythm GI: Other: abdomen is firm, distended, tender diffusely Skin: General skin exam: no rashes or lesions noted Neuro: General: patient oriented x3 Cognition (Neuro): normal cognition Extrem: General: Yes normal to inspection and Yes no pedal edema Results Labs 06/25/22 04:18 06/25/22 04:18 Labs: Laboratory Results - last 24 hr 06/24/22 06/24/22 06/24/22 23:09 23:09 23:09 MCV 94.1 MCH 30.8 MCHC 32.7 RDW 13.4 Plt Count 376 MPV 8.3 L Immature Gran % (Auto) 0.1 Neut % (Auto) 88.3 H Lymph % (Auto) 8.0 L Butts % (Auto) 3.4 Eos % (Auto) 0.0 Baso % (Auto) 0.2 Lymph # (Auto) 0.8 L Butts # (Auto) 0.4 Eos # (Auto) 0.0 Baso # (Auto) 0.0 Abs Immat Gran (auto) 0.01 Absolute Neuts (auto) 9.2 H Absolute Nucleated RBC 0.000 Nucleated RBC % (auto) 0.0 PT 14.9 H INR 1.3 H Anion Gap 15 Estim Creat Clear Calc 58.2 Estimated GFR > 60 POC Glucose Random Glucose 204 H Lactic Acid Lactic Acid F/U @ 2Hr Lactic Acid F/U @ 4Hr Calcium 9.1 Magnesium 1.8 Total Bilirubin 0.8 Direct Bilirubin 0.4 AST 32 ALT 29 Alkaline Phosphatase 70 Troponin I High Sens Total Protein 6.7 Albumin 3.6 Lipase 25 COVID-19 ([facility]) COVID-19 Clin Com 06/24/22 06/24/22 06/24/22 23:09 23:09 23:09 MCV MCH MCHC RDW Plt Count MPV Immature Gran % (Auto) Neut % (Auto) Lymph % (Auto) Butts % (Auto) Eos % (Auto) Baso % (Auto) Lymph # (Auto) Butts # (Auto) Eos # (Auto) Baso # (Auto) Abs Immat Gran (auto) Absolute Neuts (auto) Absolute Nucleated RBC Nucleated RBC % (auto) PT INR Anion Gap Estim Creat Clear Calc Estimated GFR POC Glucose Random Glucose Lactic Acid 3.3 H* Lactic Acid F/U @ 2Hr Lactic Acid F/U @ 4Hr Calcium Magnesium Total Bilirubin Direct Bilirubin AST ALT Alkaline Phosphatase Troponin I High Sens 4.6 Total Protein Albumin Lipase COVID-19 ([facility]) Negative COVID-19 Clin Com See Note 06/24/22 06/25/22 06/25/22 23:09 01:24 04:18 MCV 94.2 MCH 31.1 MCHC 33.0 RDW 13.5 Plt Count 313 MPV 8.4 L Immature Gran % (Auto) 0.3 Neut % (Auto) 75.1 H Lymph % (Auto) 16.0 L Butts % (Auto) 8.4 Eos % (Auto) 0.0 Baso % (Auto) 0.2 Lymph # (Auto) 2.2 Butts # (Auto) 1.2 Eos # (Auto) 0.0 Baso # (Auto) 0.0 Abs Immat Gran (auto) 0.04 H Absolute Neuts (auto) 10.4 H Absolute Nucleated RBC 0.000 Nucleated RBC % (auto) 0.0 PT INR Anion Gap Estim Creat Clear Calc Estimated GFR POC Glucose 183 H Random Glucose Lactic Acid Lactic Acid F/U @ 2Hr 2.1 H* Lactic Acid F/U @ 4Hr Calcium Magnesium Total Bilirubin Direct Bilirubin AST ALT Alkaline Phosphatase Troponin I High Sens Total Protein Albumin Lipase COVID-19 ([facility]) COVID-19 Clin Com 06/25/22 06/25/22 04:18 04:18 MCV MCH MCHC RDW Plt Count MPV Immature Gran % (Auto) Neut % (Auto) Lymph % (Auto) Butts % (Auto) Eos % (Auto) Baso % (Auto) Lymph # (Auto) Butts # (Auto) Eos # (Auto) Baso # (Auto) Abs Immat Gran (auto) Absolute Neuts (auto) Absolute Nucleated RBC Nucleated RBC % (auto) PT INR Anion Gap 13 Estim Creat Clear Calc 68.8 Estimated GFR > 60 POC Glucose Random Glucose 115 Lactic Acid Lactic Acid F/U @ 2Hr Lactic Acid F/U @ 4Hr 1.1 Calcium 8.5 D Magnesium Total Bilirubin Direct Bilirubin AST ALT Alkaline Phosphatase Troponin I High Sens Total Protein Albumin Lipase COVID-19 ([facility]) COVID-19 Clin Com Imaging Radiologist's Impressions: Impressions Chest X-Ray 06/24/22 23:26 IMPRESSION: 1. Focal airspace opacities in the medial right lower lobe which could represent atelectasis, aspiration or pneumonia. 2. Nonspecific gastric dilatation. 3. Dilated loop of bowel in the left lower quadrant which could be related with focal ileus in the absence of additional abnormally dilated loop of bowel. Recommend clinical correlation and attention on follow-up. KUB X-Ray 06/24/22 23:26 IMPRESSION: 1. Focal airspace opacities in the medial right lower lobe which could represent atelectasis, aspiration or pneumonia. 2. Nonspecific gastric dilatation. 3. Dilated loop of bowel in the left lower quadrant which could be related with focal ileus in the absence of additional abnormally dilated loop of bowel. Recommend clinical correlation and attention on follow-up. Abdomen/Pelvis CT 06/25/22 02:37 IMPRESSION: 1. Redemonstration of the area of circumferential colonic wall thickening at the proximal descending colon, concerning for malignancy. There is increased fluid-filled dilatation of small and large bowel proximal to this area of narrowing, consistent with worsening partial obstruction. There is a fecalith seen in this area which has progressed in position since the prior CT, suggesting that this may be resulting in worsening of the obstruction. 2. Right middle lobe consolidation noted. This could represent pneumonia or aspiration. This is new from 06/20/2022. Fleischner guidelines were followed. Assessment and Plan (1) Nausea vomiting and diarrhea: Status: Acute (2) Aspiration pneumonia: Status: Acute (3) Partial small bowel obstruction: Status: Acute Plan 86-year-old male with past medical history of colon cancer recently diagnosed since April, comes into the hospital with complaints of abdominal pain nausea vomiting diarrhea found to have small-bowel obstruction # acute partial small-bowel obstruction - although patient reports 1 episode of diarrhea prior to coming to the hospital, he has not passed gas, has not had any bowel movements since, - abdominal KUB as well as abdomen pelvic CT showed small partial small-bowel obstruction - will keep NPO, pain control, general surgery consult # aspiration pneumonia - evidence of pneumonia on imaging - likely secondary to aspiration - will treat with Unasyn - has no respiratory symptoms at this time - follow cultures # nausea vomiting diarrhea - likely secondary to above - resolved - continue antiemetics # hypertension - stable - continue lisinopril # hyperlipidemia - continue statin DVT prophylaxis: Lovenox given patient's small-bowel obstruction patient require an minimum 2 night inpatient hospital stay for further management and monitor Time Spent With Patient Time: Total time managing care of this patient today ____ minutes. Quality Stroke Does the patient have a stroke diagnosis?: No VTE Prior VTE?: No VTE Risk Level:: Medical - moderate - high VTE Device Contraindication: Treatment Not Indicated VTE Drug Contraindication: N/A - Med Ordered
--- NOTE | 2022-06-25 07:23 | PHA.MEDREC ---
Pharmacy Consult ? Medication Reconciliation Pharmacy has completed the medication reconciliation. Reviewed med rec done by nursing (Tamar).
--- NOTE | 2022-06-25 09:16 | PM.EVENT ---
Event Note Date of Service: 06/25/22 Event Note: Patient seen and evaluated this morning Denies any pain or fever, report having diarrhea Pending surgery eval Continue IVF and IV Antibiotics NPO, can have few sips of water Time Spent With Patient Time: Total time managing care of this patient today ____ minutes.
[2022-06-25 10:47] LABS: Appearance Urine Cloudy; Color Urine Dark Yellow; Glucose Urine UA Negative (Negative); Leukocyte Esterase Urine Negative (Negative); Nitrite Urine Negative (Negative); PH 5.5 (5.0-9.0); Specific Gravity - Urine >= 1.030 (1.005-1.025); UMIC TRIGGER UACC YES; Urine Blood Negative (Negative); Urine Ketones Trace mg/dL (Negative); Urine Protein 30 (1+) mg/dL (Neg-Trace)
[2022-06-25 10:52] LABS: Bacteria Urine None Seen (None Seen); RBC Urine 0-2 /HPF (0-2); Squamous Epithelial Cell Urine 0-2 /HPF (0-2); WBC Urine 0-5 /HPF (0-5)
--- NOTE | 2022-06-25 14:55 | P.CONGS_ITS ---
History of Present Illness Consult details Consult date: 06/25/22 Requesting physician: Christiana Owusu Narrative: Patient is an 86-year-old male who was having abdominal pain and diarrhea and workup over the last several weeks reveal that he has a near obstructing Left colon lesion. Patient has already been seen by Dr. Rizvi and is on the schedule for lap assisted resection on Monday but he was having more abdominal pain nausea vomiting and as result came into the hospital. He has still symptoms of partial obstruction but his abdomen is distended. PMFSH Past Medical History Medical History Abnormal colonoscopy Former smoker HTN (hypertension) Hyperlipidemia Family History Family History Father Prostate cancer Surgical History Surgical History History of appendectomy History of carpal tunnel release History of colonoscopy History of neck surgery Social History Social History Household Members: Family Housing: House Patient Tobacco Use Status: Former Tobacco user Smoked in Last 30 Days: No Use of substances other than those prescribed or required for medical reasons: No Currently Displaying Signs/Symptoms of Drug Intoxication Withdrawal: No Any prior treatment program specific to substance use: No Have you been hit, kicked, punched, or otherwise hurt by someone within the past year? 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 Allergies Allergy/AdvReac Type Severity Reaction Status Date / Time No Known Allergies Allergy Verified 06/24/22 09:23 Active Medications: Current Medications Acetaminophen (Acetaminophen 325 Mg Tablet) 650 mg PO Q6H PRN PRN Reason: Pain, Mild (Pain Scale 1-3) Docusate Sodium (Docusate Sodium 100 Mg Capsule) 100 mg PO DAILY PRN PRN Reason: Constipation Enoxaparin Sodium (Enoxaparin Sodium 40 Mg/0.4 Ml Syringe) 40 mg SUBCUT Q24H [facility] Last Admin: 06/25/22 02:49 Dose: 40 mg Lactated Ringer's (Lr) 1,000 mls @ 80 mls/hr IVCONT .[id number] [facility] Last Admin: 06/25/22 02:49 Dose: 80 mls/hr Ampicillin Sodium/Sulbactam (Sodium 3 gm/ Sodium Chloride) 100 mls @ 200 mls/hr IV Q8H [facility] Last Infusion: 06/25/22 10:58 Dose: Infused Ondansetron HCl (Ondansetron Hcl 4 Mg/2 Ml Vial) 4 mg IVPUSH Q8H PRN PRN Reason: Nausea and Vomiting Sodium Chloride (0.9 % Sodium Chloride Flush 3 Ml Syringe) 3 ml IVFLUSH QSHIFT [facility] Last Admin: 06/25/22 09:57 Dose: Not Given Home Medications Medication Instructions Recorded Confirmed Last Taken Type Saccharomyces boulardii 250 mg 250 mg PO BID 06/01/21 06/25/22 Unknown History capsule (Daily Probiotic (S. boulardii)) ascorbate calcium (vitamin C) 500 500 mg PO DAILY 06/01/21 06/25/22 Unknown History mg tablet cholecalciferol (vitamin D3) 50 50 mcg PO DAILY 06/01/21 06/25/22 Unknown History mcg (2,000 unit) capsule famotidine 40 mg tablet 40 mg PO QPM 06/01/21 06/25/22 Unknown History lisinopril 2.5 mg tablet 2.5 mg PO DAILY 06/01/21 06/25/22 06/20/22 History qksvutqi-kby-ufyny acid 300 1 tab PO DAILY 06/01/21 06/25/22 Unknown History mcg-lycopene 600 mcg-lutein 300 mcg tablet (Centrum Silver Men) simvastatin 20 mg tablet 20 mg PO DAILY 06/01/21 06/25/22 Unknown History Physical Exam Vital Signs: Vital Signs: Last Vital Signs Temp 96.9 F 06/25/22 12:22 Pulse 74 06/25/22 12:22 Resp 16 06/25/22 12:22 BP 117/56 L 06/25/22 12:22 Pulse Ox 99 06/25/22 12:22 O2 Del Method 06/25/22 12:22 BMI result Body Mass Index 24.5 Const: General: cooperative, healthy appearing and comfortable Orientation/consciousness: oriented to person, oriented to place and oriented to time HEENT: Head: Yes normal to inspection Neck: Neck: Yes normal visual inspection Resp: Effort & Inspection: normal respiratory effort and able to speak in complete sentences Auscultation: clear to auscultation bilaterally Cardio: Rate: regular rate GI: Other: Abdomen is soft little distended nontender has bowel sounds. Skin: General skin exam: no rashes or lesions noted Neuro: General: oriented to person, oriented to place and oriented to time Cranial nerves: Yes CN's II-XII intact bilaterally Extrem: General: Yes normal to inspection Psych: Appearance: grossly normal Mental Status: mental status grossly normal Speech and movement: Normal speech and movement present Results Labs 06/25/22 04:18 06/25/22 04:18 Labs: Abnormal lab results 06/24/22 06/24/22 06/24/22 Range/Units 23:09 23:09 23:09 WBC (4.8-10.8) X10*3/uL RBC 4.09 L (4.60-5.80) X10*6/uL Hgb 12.6 L (14.0-18.0) g/dl Hct 38.5 L (42.0-52.0) % MPV 8.3 L (9.4-12.4) fL Neut % (Auto) 88.3 H (45-73) % Lymph % (Auto) 8.0 L (20-40) % Lymph # (Auto) 0.8 L (1.2-4.9) X10*3/uL Abs Immat Gran (auto) (0.00-0.03) X10*3/uL Absolute Neuts (auto) 9.2 H (2.0-8.3) x10*3/uL PT 14.9 H (10.0-13.1) SEC INR 1.3 H (0.9-1.1) BUN 21 H (9-16) mg/dL POC Glucose (60-115) mg/dL Random Glucose 204 H (60-115) mg/dL Lactic Acid (0.5-2.0) mmol/L Lactic Acid F/U @ 2Hr (0.5-2.0) mmol/L Ur Specific [place] (1.005-1.025) Urine Protein (Neg-Trace) mg/dL 06/24/22 06/24/22 06/25/22 Range/Units 23:09 23:09 01:24 WBC (4.8-10.8) X10*3/uL RBC (4.60-5.80) X10*6/uL Hgb (14.0-18.0) g/dl Hct (42.0-52.0) % MPV (9.4-12.4) fL Neut % (Auto) (45-73) % Lymph % (Auto) (20-40) % Lymph # (Auto) (1.2-4.9) X10*3/uL Abs Immat Gran (auto) (0.00-0.03) X10*3/uL Absolute Neuts (auto) (2.0-8.3) x10*3/uL PT (10.0-13.1) SEC INR (0.9-1.1) BUN (9-16) mg/dL POC Glucose 183 H (60-115) mg/dL Random Glucose (60-115) mg/dL Lactic Acid 3.3 H* (0.5-2.0) mmol/L Lactic Acid F/U @ 2Hr 2.1 H* (0.5-2.0) mmol/L Ur Specific [place] (1.005-1.025) Urine Protein (Neg-Trace) mg/dL 06/25/22 06/25/22 06/25/22 Range/Units 04:18 04:18 08:43 WBC 13.9 H (4.8-10.8) X10*3/uL RBC 3.60 L (4.60-5.80) X10*6/uL Hgb 11.2 L (14.0-18.0) g/dl Hct 33.9 L (42.0-52.0) % MPV 8.4 L (9.4-12.4) fL Neut % (Auto) 75.1 H (45-73) % Lymph % (Auto) 16.0 L (20-40) % Lymph # (Auto) (1.2-4.9) X10*3/uL Abs Immat Gran (auto) 0.04 H (0.00-0.03) X10*3/uL Absolute Neuts (auto) 10.4 H (2.0-8.3) x10*3/uL PT (10.0-13.1) SEC INR (0.9-1.1) BUN 23 H (9-16) mg/dL POC Glucose (60-115) mg/dL Random Glucose (60-115) mg/dL Lactic Acid (0.5-2.0) mmol/L Lactic Acid F/U @ 2Hr (0.5-2.0) mmol/L Ur Specific [place] >= 1.030 H (1.005-1.025) Urine Protein 30 (1+) H (Neg-Trace) mg/dL Short CBC 06/24/22 06/25/22 Range/Units 23:09 04:18 WBC 10.5 13.9 H (4.8-10.8) X10*3/uL Hgb 12.6 L 11.2 L (14.0-18.0) g/dl Hct 38.5 L 33.9 L (42.0-52.0) % Plt Count 376 313 (160-400) X10*3/uL BMP 06/24/22 06/25/22 23:09 04:18 Sodium 135 138 Potassium 4.9 4.4 Chloride 102 106 Carbon Dioxide 23 23 BUN 21 H 23 H Creatinine 0.97 0.82 Calcium 9.1 8.5 D Liver Function 06/24/22 Range/Units 23:09 Total Bilirubin 0.8 (0.0-1.0) mg/dL Direct Bilirubin 0.4 (0.0-0.5) mg/dL AST 32 (5-37) U/L ALT 29 (0-40) U/L Alkaline Phosphatase 70 (39-117) U/L Albumin 3.6 (3.5-5.0) g/dL Urine 06/25/22 Range/Units 08:43 Urine Color Dark Yellow Urine Appearance Cloudy Urine pH 5.5 (5.0-9.0) Ur Specific [place] >= 1.030 H (1.005-1.025) Urine Protein 30 (1+) H (Neg-Trace) mg/dL Urine Glucose (UA) Negative (Negative) mg/dL All other labs normal. Imaging Abdomen CT scan report/results: report reviewed and image reviewed CT scan - pelvis: report reviewed and image reviewed Assessment and Plan (1) Colon obstruction: Status: Acute Plan The patient is a 86-year-old male who is being admitted with a colonic obstruction secondary to unknown left-sided colon cancer mass. He is already on the elective schedule for Monday but now with his nausea vomiting and obstruction may be getting a little worse it is best that he remains here with just sips of liquids as tolerated IV hydration and support. Will discuss with Dr. Rizvi possibility of doing his surgery sooner but at this point I think if he has limited input and was is partial obstruction and IV hydration we have some time. Will re-evaluate tomorrow and make a decision on Monday. Patient understands and agrees with the above plan Time Spent With Patient Time: Total time managing care of this patient today ____ minutes. Procedures Date of Service Date of Service: 06/25/22
[2022-06-26] MEDS: Ampicillin Sodium/Sulbactam Na 3 GM in 0.9 % Sodium Chloride 100 ML IV ×3 (01:40→17:53)
[2022-06-26] MEDS: Enoxaparin Sodium 40 MG/0.4 ML SYRINGE SUBCUT ×2 (01:40→23:25)
[2022-06-26 03:13] VITALS: BP 120/58; PULSE 75; RESP 14; TEMP 36.5; O2SAT 97
[2022-06-26 06:41] LABS: Hematocrit 31.8 % (42.0-52.0); Hemoglobin 10.5 g/dl (14.0-18.0); Mean Corpuscular Hemoglobin 31.2 pg (27.0-33.0); Mean Corpuscular Volume 94.4 fL (80.0-98.0); Mean Platelet Volume 8.9 fL (9.4-12.4); Platelet Count 309 X10*3/uL (160-400); Red Blood Count 3.37 X10*6/uL (4.60-5.80); Red Cell Distribution Width 13.8 % (11.0-16.0)
[2022-06-26 07:18] VITALS: BP 130/62; PULSE 68; RESP 12; TEMP 36.5; O2SAT 99
[2022-06-26 07:25] LABS: Anion Gap 10 (12-20); Blood Urea Nitrogen 15 mg/dL (9-16); Calcium 8.6 mg/dL (8.4-10.2); Carbon Dioxide 24 mmol/L (22-29); Chloride 107 mmol/L (96-108); Creatinine Clr Calc Pharmacy 89.6; Estimated Glomerular Filt Rate > 60; Glucose Random 77 mg/dL (60-115); Potassium 4.4 mmol/L (3.3-5.1); Sodium 137 mmol/L (135-145)
[2022-06-26] MEDS: Lactated Ringers 1,000 ML 80 ML IVCONT ×2 (09:14→23:15)
--- NOTE | 2022-06-26 10:19 | P.PNIM_ITS ---
Subjective Subjective Date of Service: 06/26/22 Interval History: the patient was seen and eval this morning Feels much better, passing BM Breathing much better, on RA no fever or chills no other overnight events Physical Exam Vital Signs: Vital Signs: Last Vital Signs Temp 97.7 F 06/26/22 07:18 Pulse 68 06/26/22 07:18 Resp 12 06/26/22 07:18 BP 130/62 06/26/22 07:18 Pulse Ox 99 06/26/22 07:18 O2 Del Method 06/26/22 07:18 BMI result Body Mass Index 24.5 Const: Other: Constitutional : Awake, interactive, not in distress Neck : Normal inspection, Supple Cardiovascular : RRR, no JVP, no lower extremity edema Respiratory : good bilateral air entry, fine basal crackles, wheezes or rhonchi Gastrointestinal: soft, lax, decreased bowel sounds, Non tender Skin : Warm, Dry Neurological : Alert & oriented x3, No focal deficit Objective Data Active Medications Acetaminophen (Acetaminophen 325 Mg Tablet) 650 mg PO Q6H PRN PRN Reason: Pain, Mild (Pain Scale 1-3) Docusate Sodium (Docusate Sodium 100 Mg Capsule) 100 mg PO DAILY PRN PRN Reason: Constipation Enoxaparin Sodium (Enoxaparin Sodium 40 Mg/0.4 Ml Syringe) 40 mg SUBCUT Q24H [facility] Last Admin: 06/26/22 01:40 Dose: 40 mg Documented By: RIA Hydrocortisone (Hydrocortisone 1 % Cream 28.35 Gm Tube) 1 appl TOPICAL BID [facility]; Protocol Lactated Ringer's (Lr) 1,000 mls @ 80 mls/hr IVCONT .[id number] [facility] Last Admin: 06/26/22 09:14 Dose: 80 mls/hr Documented By: FORD Ampicillin Sodium/Sulbactam (Sodium 3 gm/ Sodium Chloride) 100 mls @ 200 mls/hr IV Q8H [facility] Last Infusion: 06/26/22 02:32 Dose: 200 mls/hr Documented By: RIA Ondansetron HCl (Ondansetron Hcl 4 Mg/2 Ml Vial) 4 mg IVPUSH Q8H PRN PRN Reason: Nausea and Vomiting Sodium Chloride (0.9 % Sodium Chloride Flush 3 Ml Syringe) 3 ml IVFLUSH QSHIFT [facility] Last Admin: 06/26/22 07:26 Dose: Not Given Documented By: FORD Non-Admin Reason: IV Running Labs 06/26/22 05:35 06/26/22 05:35 Labs: Laboratory Results - last 24 hr 06/25/22 06/26/22 06/26/22 08:43 05:35 05:35 MCV 94.4 MCH 31.2 MCHC 33.0 RDW 13.8 Plt Count 309 MPV 8.9 L Absolute Nucleated RBC 0.000 Nucleated RBC % (auto) 0.0 Anion Gap 10 L Estim Creat Clear Calc 89.6 Estimated GFR > 60 Random Glucose 77 Calcium 8.6 Urine Color Dark Yellow Urine Appearance Cloudy Urine pH 5.5 Ur Specific [place] >= 1.030 H Urine Protein 30 (1+) H Urine Glucose (UA) Negative Urine Ketones Trace Urine Blood Negative Urine Nitrite Negative Ur Leukocyte Esterase Negative Urine RBC 0-2 Urine WBC 0-5 Ur Squamous Epith Cells 0-2 Urine Bacteria None Seen Hyaline Casts 3-5 Microbiology Microbiology Results: Microbiology 06/24/22 23:09 Blood Culture - Preliminary Blood - Venous No growth after 24 hours. 06/24/22 23:09 Blood Culture - Preliminary Blood - Venous No growth after 24 hours. Assessment and Plan (1) Partial small bowel obstruction: Status: Acute (2) Aspiration pneumonia: Status: Acute (3) Sepsis: Status: Acute Plan 86-year-old male with past medical history of colon cancer recently diagnosed since April, comes into the hospital with complaints of abdominal pain nausea vomiting diarrhea found to have small-bowel obstruction # acute partial small-bowel obstruction 2/2 colon cancer moving bowels, diarrhea reported abdominal KUB as well as abdomen pelvic CT showed small partial small-bowel obstruction keep NPO pain control general surgery following, surgery planned for Wed # Sepsis on admission 2/2 aspiration pneumonia likely secondary to aspiration Continue Unasyn follow cultures # nausea vomiting diarrhea resolved continue antiemetics # hypertension continue lisinopril # hyperlipidemia continue statin DVT prophylaxis: Lovenox given patient's small-bowel obstruction patient require overnight inpatient hospital stay for further management and monitor Time Spent With Patient Time: Total time managing care of this patient today ____ minutes. Quality Stroke Does the patient have a stroke diagnosis?: No VTE Prior VTE?: No VTE Risk Level:: Medical - moderate - high VTE Device Contraindication: Treatment Not Indicated VTE Drug Contraindication: N/A - Med Ordered
--- NOTE | 2022-06-26 11:26 | PM.PNGS ---
Subjective Subjective Date of Service: 06/26/22 Interval history: feeling better passing some liquid stool no nausea no cramping Physical Exam Vital Signs: Vital Signs: Last Vital Signs Temp 97.7 F 06/26/22 07:18 Pulse 68 06/26/22 07:18 Resp 12 06/26/22 07:18 BP 130/62 06/26/22 07:18 Pulse Ox 99 06/26/22 07:18 O2 Del Method 06/26/22 07:18 BMI result Body Mass Index 24.5 GI: Other: abdomen soft and round and bowel sounds present nontender Objective Data Active Medications Acetaminophen (Acetaminophen 325 Mg Tablet) 650 mg PO Q6H PRN PRN Reason: Pain, Mild (Pain Scale 1-3) Docusate Sodium (Docusate Sodium 100 Mg Capsule) 100 mg PO DAILY PRN PRN Reason: Constipation Enoxaparin Sodium (Enoxaparin Sodium 40 Mg/0.4 Ml Syringe) 40 mg SUBCUT Q24H [facility] Last Admin: 06/26/22 01:40 Dose: 40 mg Documented By: RIA Hydrocortisone (Hydrocortisone 1 % Cream 28.35 Gm Tube) 1 appl TOPICAL BID [facility]; Protocol Last Admin: 06/26/22 10:41 Dose: Not Given Documented By: FORD Non-Admin Reason: Med Not Available Lactated Ringer's (Lr) 1,000 mls @ 80 mls/hr IVCONT .[id number] [facility] Last Admin: 06/26/22 09:14 Dose: 80 mls/hr Documented By: FORD Ampicillin Sodium/Sulbactam (Sodium 3 gm/ Sodium Chloride) 100 mls @ 200 mls/hr IV Q8H [facility] Last Admin: 06/26/22 10:40 Dose: 200 mls/hr Documented By: FORD Ondansetron HCl (Ondansetron Hcl 4 Mg/2 Ml Vial) 4 mg IVPUSH Q8H PRN PRN Reason: Nausea and Vomiting Sodium Chloride (0.9 % Sodium Chloride Flush 3 Ml Syringe) 3 ml IVFLUSH QSHIFT [facility] Last Admin: 06/26/22 07:26 Dose: Not Given Documented By: FORD Non-Admin Reason: IV Running Labs 06/26/22 05:35 06/26/22 05:35 Labs: Laboratory Results - last 24 hr 06/26/22 06/26/22 05:35 05:35 MCV 94.4 MCH 31.2 MCHC 33.0 RDW 13.8 Plt Count 309 MPV 8.9 L Absolute Nucleated RBC 0.000 Nucleated RBC % (auto) 0.0 Anion Gap 10 L Estim Creat Clear Calc 89.6 Estimated GFR > 60 Random Glucose 77 Calcium 8.6 Microbiology Microbiology Results: Microbiology 06/24/22 23:09 Blood Culture - Preliminary Blood - Venous No growth after 24 hours. 06/24/22 23:09 Blood Culture - Preliminary Blood - Venous No growth after 24 hours. Procedures Date of Service Date of Service: 06/26/22 Progress Note: A&P Assessment and plan (1) Colon obstruction: Status: Acute Assessment and Plan: 86 year old male with partial colon obstruction due to colon cancer lesion - he was admitted here for not tolerating diet at home bu improved now. set for surgery on Monday - going to try to do a little bowel prep with slow golytely intake - if too much cramping or nausea will stop and cont with sips of clear liquids. pt understands and agrees to proceed. Time Spent With Patient Time: Total time managing care of this patient today ____ minutes. Quality Stroke Does the patient have a stroke diagnosis?: No VTE Prior VTE?: No VTE Risk Level:: Medical - moderate - high VTE Device Contraindication: Treatment Not Indicated VTE Drug Contraindication: N/A - Med Ordered
[2022-06-26] MEDS: PEG 3350/Na Sulf,Bicarb,Cl/KCL 4,000 ML SOLN.RECON 4000 ML PO (12:46)
[2022-06-26 15:14] VITALS: BP 131/61; PULSE 72; RESP 18; TEMP 36.7; O2SAT 97
--- NOTE | 2022-06-26 15:53 | MHC.CM.PN ---
IMM 06/26/22, EMR REVIEWED, PT ADMITTED W/PNA/SEPSIS, CM MET W/PT WHO REPORTS HE LIVES [place], IS INDEP W/ALL CARE, DENIES USE OF DME HOWEVER PT HAS HOME MODIFICATIONS AND RAILING TO GET INTO HOUSE AND IN BR FOR HIS HOWEVER SHE HAS , PT DENIES SERVICES AND IS NOT HOME BOUND. PT VERIFIES PCP IS RUSSEL DUMONT, FULLY VACCINATED AGAINST COVID & REPORTS HE HAS RECEIVED ALL BOOSTERS AND A FLU SHOT THIS YEAR, PT EDUCTAED ON AND HAS COMPLETED A NEW HCP W/CM NAMING HIS DTR DARIA HODGES [phone] HIS [facility] AND HIS SON ZACHERY WATERMAN [phone] HIS ALTERNATE. PT HAS SURGERY SCHEDULED W/DR THORPE FOR MALIGNANT COLON MASS TO BE REMOVED, W/E SURGICAL HAS MET W/PT AND WILL START PT ON , UNCERTAIN AT THIS TIME IF PT WILL STAY THROUGH FOR SURGERY ON MONDAY OR D/C HOME AND RETURN.
[2022-06-26 19:17] VITALS: BP 134/63; PULSE 82; RESP 17; TEMP 36.8; O2SAT 100
[2022-06-26] MEDS: Hydrocortisone 1 % Cream 28.35 GM TUBE 1 APPL TOPICAL (20:01)
[2022-06-27] VITALS (17 sets, daily range): BP systolic 137–155; BP diastolic 58–72; PULSE 68–81; RESP 14–20; TEMP 36.2–36.9; O2SAT 96–100
[2022-06-27] MEDS: Ampicillin Sodium/Sulbactam Na 3 GM in 0.9 % Sodium Chloride 100 ML IV ×2 (01:33→18:18)
[2022-06-27 06:19] LABS: Hematocrit 32.3 % (42.0-52.0); Hemoglobin 10.6 g/dl (14.0-18.0); Mean Corpuscular HGB Conc 32.8 g/dl (31.0-36.0); Mean Corpuscular Hemoglobin 31.5 pg (27.0-33.0); Mean Corpuscular Volume 95.8 fL (80.0-98.0); Platelet Count 327 X10*3/uL (160-400); Red Blood Count 3.37 X10*6/uL (4.60-5.80); Red Cell Distribution Width 13.6 % (11.0-16.0); White Blood Count 9.2 X10*3/uL (4.8-10.8)
[2022-06-27 06:39] LABS: Anion Gap 11 (12-20); Blood Urea Nitrogen 10 mg/dL (9-16); Calcium 8.5 mg/dL (8.4-10.2); Carbon Dioxide 25 mmol/L (22-29); Chloride 107 mmol/L (96-108); Creatinine Clr Calc Pharmacy 97.3; Estimated Glomerular Filt Rate > 60; Glucose Random 69 mg/dL (60-115); Potassium 4.6 mmol/L (3.3-5.1); Sodium 138 mmol/L (135-145)
[2022-06-27] MEDS: Hydrocortisone 1 % Cream 28.35 GM TUBE 1 APPL TOPICAL ×2 (09:28→21:19)
--- NOTE | 2022-06-27 09:46 | MHC.SHP ---
Pre-Procedural Eval Section A Date of Service: 06/27/22 The patient is an INPATIENT: Yes Changes since office visit: Yes Patient answered all questions; No Cold of Flu in the past 2 weeks, No New Medical Problems and No Changes in Medication The History & Physical has been completed within 30 days and I have reviewed it.: Yes Section B Chief Complaint: sepsis, pneumonia Allergies: Allergies Allergy/AdvReac Type Severity Reaction Status Date / Time No Known Allergies Allergy Verified 06/24/22 09:23 Plan Diagnosis/Plan: Unchanged I have reviewed the history and physical and performed a pertinent physical examination on my patient. No changes have occurred unless specified. The patient admitted over the weekend with abdominal distension with near complete obstruction however over the last 24 hours patient has been passing liquid stool after taking GoLYTELY. Examination today is much improved with a soft abdomen and no distension. Discussed proceeding with surgery today with patient. This would include hand assisted laparoscopic left colectomy with loop ileostomy. After discussion of the procedure, risks, and alternatives, he consents to the surgery. Time Spent With Patient Time: Total time managing care of this patient today ____ minutes.
--- NOTE | 2022-06-27 10:09 | HO.ANESPROP2 ---
[facility] Active Problems Active Problems: All Active Problems (Updated 06/26/22 @ 10:25 by Justus Robins MD) Sepsis (Acute) Colon obstruction (Acute) Partial small bowel obstruction (Acute) Aspiration pneumonia (Acute) Impacted cerumen of both ears (Acute) Tear of left biceps muscle (Acute) Cancer of left colon (Acute) Nausea vomiting and diarrhea (Acute) Acute dehydration (Acute) sleep apnea with CPAP Past Medical History Medical History Abnormal colonoscopy Former smoker HTN (hypertension) Hyperlipidemia Sleep apnea with use of continuous positive airway pressure (CPAP) Family History Family History Father Prostate cancer Family history of problems with anesthesia: No Surgical History Surgical History History of appendectomy History of carpal tunnel release History of colonoscopy History of neck surgery History of Problems with Anesthesia: No Social History Social History Household Members: Family Housing: House Patient Tobacco Use Status: Former Tobacco user Smoked in Last 30 Days: No Use of substances other than those prescribed or required for medical reasons: No Currently Displaying Signs/Symptoms of Drug Intoxication Withdrawal: No Any prior treatment program specific to substance use: No Have you been hit, kicked, punched, or otherwise hurt by someone within the past year? 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 Allergies Allergy/AdvReac Type Severity Reaction Status Date / Time No Known Allergies Allergy Verified 06/24/22 09:23 Active Medications: Current Medications Acetaminophen (Acetaminophen 325 Mg Tablet) 650 mg PO Q6H PRN PRN Reason: Pain, Mild (Pain Scale 1-3) Docusate Sodium (Docusate Sodium 100 Mg Capsule) 100 mg PO DAILY PRN PRN Reason: Constipation Enoxaparin Sodium (Enoxaparin Sodium 40 Mg/0.4 Ml Syringe) 40 mg SUBCUT Q24H [facility] Last Admin: 06/26/22 23:25 Dose: 40 mg Hydrocortisone (Hydrocortisone 1 % Cream 28.35 Gm Tube) 1 appl TOPICAL BID [facility]; Protocol Last Admin: 06/27/22 09:28 Dose: 1 appl Ampicillin Sodium/Sulbactam (Sodium 3 gm/ Sodium Chloride) 100 mls @ 200 mls/hr IV Q8H [facility] Last Infusion: 06/27/22 02:15 Dose: Infused Cefotetan Disodium 2 gm/ (Sodium Chloride) 50 mls @ 100 mls/hr IV PREOP ONE Stop: 06/27/22 10:27 Ondansetron HCl (Ondansetron Hcl 4 Mg/2 Ml Vial) 4 mg IVPUSH Q8H PRN PRN Reason: Nausea and Vomiting Sodium Chloride (0.9 % Sodium Chloride Flush 3 Ml Syringe) 3 ml IVFLUSH QSHIFT [facility] Last Admin: 06/27/22 09:28 Dose: Not Given Home Medications Medication Instructions Recorded Confirmed Last Taken Type Saccharomyces boulardii 250 mg 250 mg PO BID 06/01/21 06/25/22 Unknown History capsule (Daily Probiotic (S. boulardii)) ascorbate calcium (vitamin C) 500 500 mg PO DAILY 06/01/21 06/25/22 Unknown History mg tablet cholecalciferol (vitamin D3) 50 50 mcg PO DAILY 06/01/21 06/25/22 Unknown History mcg (2,000 unit) capsule famotidine 40 mg tablet 40 mg PO QPM 06/01/21 06/25/22 Unknown History lisinopril 2.5 mg tablet 2.5 mg PO DAILY 06/01/21 06/25/22 06/20/22 History evzhfsmj-jby-jsvnq acid 300 1 tab PO DAILY 06/01/21 06/25/22 Unknown History mcg-lycopene 600 mcg-lutein 300 mcg tablet (Centrum Silver Men) simvastatin 20 mg tablet 20 mg PO DAILY 06/01/21 06/25/22 Unknown History Exam Exam Date and Time: June 27, 2022 1009 Height,Weight and Vital Signs: Height 5 ft 11 in Weight 79.832 kg Last Vital Signs Temp 97.1 F 06/27/22 09:42 Pulse 73 06/27/22 09:42 Resp 16 06/27/22 09:42 BP 141/62 H 06/27/22 09:42 Pulse Ox 98 06/27/22 09:42 O2 Del Method 06/27/22 09:42 Pertinent Lab Results Pertinent Lab Results: Laboratory Tests 06/24/22 06/24/22 06/24/22 23:09 23:09 23:09 WBC 10.5 RBC 4.09 L Hgb 12.6 L Hct 38.5 L MCV 94.1 MCH 30.8 MCHC 32.7 RDW 13.4 Plt Count 376 MPV 8.3 L Immature Gran % (Auto) 0.1 Neut % (Auto) 88.3 H Lymph % (Auto) 8.0 L [place] % (Auto) 3.4 Eos % (Auto) 0.0 Baso % (Auto) 0.2 Lymph # (Auto) 0.8 L [place] # (Auto) 0.4 Eos # (Auto) 0.0 Baso # (Auto) 0.0 Abs Immat Gran (auto) 0.01 Absolute Neuts (auto) 9.2 H Absolute Nucleated RBC 0.000 Nucleated RBC % (auto) 0.0 PT 14.9 H INR 1.3 H Sodium 135 Potassium 4.9 Chloride 102 Carbon Dioxide 23 Anion Gap 15 BUN 21 H Creatinine 0.97 Estim Creat Clear Calc 58.2 Estimated GFR > 60 POC Glucose Random Glucose 204 H Lactic Acid Lactic Acid F/U @ 2Hr Lactic Acid F/U @ 4Hr Calcium 9.1 Magnesium 1.8 Total Bilirubin 0.8 Direct Bilirubin 0.4 AST 32 ALT 29 Alkaline Phosphatase 70 Troponin I High Sens Total Protein 6.7 Albumin 3.6 Lipase 25 Carcinoembryonic Ag Urine Color Urine Appearance Urine pH Ur Specific Lynch Urine Protein Urine Glucose (UA) Urine Ketones Urine Blood Urine Nitrite Ur Leukocyte Esterase Urine RBC Urine WBC Ur Squamous Epith Cells Urine Bacteria Hyaline Casts COVID-19 ([facility]) COVID-19 Clin Com Blood Type Antibody Screen 06/24/22 06/24/22 06/24/22 23:09 23:09 23:09 WBC RBC Hgb Hct MCV MCH MCHC RDW Plt Count MPV Immature Gran % (Auto) Neut % (Auto) Lymph % (Auto) [place] % (Auto) Eos % (Auto) Baso % (Auto) Lymph # (Auto) [place] # (Auto) Eos # (Auto) Baso # (Auto) Abs Immat Gran (auto) Absolute Neuts (auto) Absolute Nucleated RBC Nucleated RBC % (auto) PT INR Sodium Potassium Chloride Carbon Dioxide Anion Gap BUN Creatinine Estim Creat Clear Calc Estimated GFR POC Glucose Random Glucose Lactic Acid 3.3 H* Lactic Acid F/U @ 2Hr Lactic Acid F/U @ 4Hr Calcium Magnesium Total Bilirubin Direct Bilirubin AST ALT Alkaline Phosphatase Troponin I High Sens 4.6 Total Protein Albumin Lipase Carcinoembryonic Ag Urine Color Urine Appearance Urine pH Ur Specific Lynch Urine Protein Urine Glucose (UA) Urine Ketones Urine Blood Urine Nitrite Ur Leukocyte Esterase Urine RBC Urine WBC Ur Squamous Epith Cells Urine Bacteria Hyaline Casts COVID-19 ([facility]) Negative COVID-19 Clin Com See Note Blood Type Antibody Screen 06/24/22 06/25/22 06/25/22 23:09 01:24 04:18 WBC 13.9 H RBC 3.60 L Hgb 11.2 L Hct 33.9 L MCV 94.2 MCH 31.1 MCHC 33.0 RDW 13.5 Plt Count 313 MPV 8.4 L Immature Gran % (Auto) 0.3 Neut % (Auto) 75.1 H Lymph % (Auto) 16.0 L [place] % (Auto) 8.4 Eos % (Auto) 0.0 Baso % (Auto) 0.2 Lymph # (Auto) 2.2 [place] # (Auto) 1.2 Eos # (Auto) 0.0 Baso # (Auto) 0.0 Abs Immat Gran (auto) 0.04 H Absolute Neuts (auto) 10.4 H Absolute Nucleated RBC 0.000 Nucleated RBC % (auto) 0.0 PT INR Sodium Potassium Chloride Carbon Dioxide Anion Gap BUN Creatinine Estim Creat Clear Calc Estimated GFR POC Glucose 183 H Random Glucose Lactic Acid Lactic Acid F/U @ 2Hr 2.1 H* Lactic Acid F/U @ 4Hr Calcium Magnesium Total Bilirubin Direct Bilirubin AST ALT Alkaline Phosphatase Troponin I High Sens Total Protein Albumin Lipase Carcinoembryonic Ag Urine Color Urine Appearance Urine pH Ur Specific Lynch Urine Protein Urine Glucose (UA) Urine Ketones Urine Blood Urine Nitrite Ur Leukocyte Esterase Urine RBC Urine WBC Ur Squamous Epith Cells Urine Bacteria Hyaline Casts COVID-19 ([facility]) COVID-19 Clin Com Blood Type Antibody Screen 06/25/22 06/25/22 06/25/22 04:18 04:18 08:43 WBC RBC Hgb Hct MCV MCH MCHC RDW Plt Count MPV Immature Gran % (Auto) Neut % (Auto) Lymph % (Auto) [place] % (Auto) Eos % (Auto) Baso % (Auto) Lymph # (Auto) [place] # (Auto) Eos # (Auto) Baso # (Auto) Abs Immat Gran (auto) Absolute Neuts (auto) Absolute Nucleated RBC Nucleated RBC % (auto) PT INR Sodium 138 Potassium 4.4 Chloride 106 Carbon Dioxide 23 Anion Gap 13 BUN 23 H Creatinine 0.82 Estim Creat Clear Calc 68.8 Estimated GFR > 60 POC Glucose Random Glucose 115 Lactic Acid Lactic Acid F/U @ 2Hr Lactic Acid F/U @ 4Hr 1.1 Calcium 8.5 D Magnesium Total Bilirubin Direct Bilirubin AST ALT Alkaline Phosphatase Troponin I High Sens Total Protein Albumin Lipase Carcinoembryonic Ag Urine Color Dark Yellow Urine Appearance Cloudy Urine pH 5.5 Ur Specific Lynch >= 1.030 H Urine Protein 30 (1+) H Urine Glucose (UA) Negative Urine Ketones Trace Urine Blood Negative Urine Nitrite Negative Ur Leukocyte Esterase Negative Urine RBC 0-2 Urine WBC 0-5 Ur Squamous Epith Cells 0-2 Urine Bacteria None Seen Hyaline Casts 3-5 COVID-19 ([facility]) COVID-19 Clin Com Blood Type Antibody Screen 06/26/22 06/26/22 06/27/22 05:35 05:35 05:05 WBC 10.0 9.2 RBC 3.37 L 3.37 L Hgb 10.5 L 10.6 L Hct 31.8 L 32.3 L MCV 94.4 95.8 MCH 31.2 31.5 MCHC 33.0 32.8 RDW 13.8 13.6 Plt Count 309 327 MPV 8.9 L 9.0 L Immature Gran % (Auto) Neut % (Auto) Lymph % (Auto) [place] % (Auto) Eos % (Auto) Baso % (Auto) Lymph # (Auto) [place] # (Auto) Eos # (Auto) Baso # (Auto) Abs Immat Gran (auto) Absolute Neuts (auto) Absolute Nucleated RBC 0.000 0.000 Nucleated RBC % (auto) 0.0 0.0 PT INR Sodium 137 Potassium 4.4 Chloride 107 Carbon Dioxide 24 Anion Gap 10 L BUN 15 Creatinine 0.63 Estim Creat Clear Calc 89.6 Estimated GFR > 60 POC Glucose Random Glucose 77 Lactic Acid Lactic Acid F/U @ 2Hr Lactic Acid F/U @ 4Hr Calcium 8.6 Magnesium Total Bilirubin Direct Bilirubin AST ALT Alkaline Phosphatase Troponin I High Sens Total Protein Albumin Lipase Carcinoembryonic Ag Urine Color Urine Appearance Urine pH Ur Specific Lynch Urine Protein Urine Glucose (UA) Urine Ketones Urine Blood Urine Nitrite Ur Leukocyte Esterase Urine RBC Urine WBC Ur Squamous Epith Cells Urine Bacteria Hyaline Casts COVID-19 ([facility]) COVID-19 [employer] Com Blood Type Antibody Screen 06/27/22 06/27/22 06/27/22 05:05 07:12 07:12 WBC RBC Hgb Hct MCV MCH MCHC RDW Plt Count MPV Immature Gran % (Auto) Neut % (Auto) Lymph % (Auto) [place] % (Auto) Eos % (Auto) Baso % (Auto) Lymph # (Auto) [place] # (Auto) Eos # (Auto) Baso # (Auto) Abs Immat Gran (auto) Absolute Neuts (auto) Absolute Nucleated RBC Nucleated RBC % (auto) PT INR Sodium 138 Potassium 4.6 Chloride 107 Carbon Dioxide 25 Anion Gap 11 L BUN 10 Creatinine 0.58 Estim Creat Clear Calc 97.3 Estimated GFR > 60 POC Glucose Random Glucose 69 Lactic Acid Lactic Acid F/U @ 2Hr Lactic Acid F/U @ 4Hr Calcium 8.5 Magnesium Total Bilirubin Direct Bilirubin AST ALT Alkaline Phosphatase Troponin I High Sens Total Protein Albumin Lipase Carcinoembryonic Ag 3.10 Urine Color Urine Appearance Urine pH Ur Specific Lynch Urine Protein Urine Glucose (UA) Urine Ketones Urine Blood Urine Nitrite Ur Leukocyte Esterase Urine RBC Urine WBC Ur Squamous Epith Cells Urine Bacteria Hyaline Casts COVID-19 ([facility]) COVID-19 [employer] Com Blood Type B Positive Antibody Screen NEGATIVE Airway Mallampati Class: III (Long neck) TM Dist: >3cm Neck ROM: Limited Loose/Missing/Broken Teeth: Yes, Upper and Lower Heart: RRR Lungs: CTA Assessment and Plan Assessment Anesthesia Assessment: Anesthesia Plan Discussed and Chart Reviewed Final Anesthetic Review Family History of Problems with Anesthesia: No History of Problems with Anesthesia: No NPO: Yes ASA Class: III Final Preanesthetic Review: Meds/Allgs Chart Reviewed, Consent Obtained/Reviewed and Anes Risks/Benef Reviewed Patient Risk: Intermediate Procedure Risk: Intermediate Anesthetic Plan Anesthetic Plan: GA Disposition: Standard PACU
--- NOTE | 2022-06-27 10:27 | P.PNIM_ITS ---
Subjective Subjective Date of Service: 06/27/22 Interval History: the patient was seen and eval this morning Feels better, plan to go for surgery today Breathing much better, on RA negative blood culture no other overnight events Review of Systems Review of Systems: Yes all other systems are reviewed and are negative Physical Exam Vital Signs: Vital Signs: Last Vital Signs Temp 97.1 F 06/27/22 09:42 Pulse 73 06/27/22 09:42 Resp 16 06/27/22 09:42 BP 141/62 H 06/27/22 09:42 Pulse Ox 98 06/27/22 09:42 O2 Del Method 06/27/22 09:42 BMI result Body Mass Index 24.5 Const: Other: Constitutional : Awake, interactive, not in distress Neck : Normal inspection, Supple Cardiovascular : RRR, no JVP, no lower extremity edema Respiratory : good bilateral air entry, fine basal crackles, wheezes or rhonchi Gastrointestinal: soft, lax, decreased bowel sounds, Non tender Skin : Warm, Dry Neurological : Alert & oriented x3, No focal deficit Objective Data Active Medications Acetaminophen (Acetaminophen 325 Mg Tablet) 650 mg PO Q6H PRN PRN Reason: Pain, Mild (Pain Scale 1-3) Albuterol Sulfate (Albuterol Sulfate (0.083%) 2.5 Mg/3 Ml Vial.Neb) 2.5 mg INHALE ONCE PRN PRN Reason: Wheezing Docusate Sodium (Docusate Sodium 100 Mg Capsule) 100 mg PO DAILY PRN PRN Reason: Constipation Enoxaparin Sodium (Enoxaparin Sodium 40 Mg/0.4 Ml Syringe) 40 mg SUBCUT Q24H [facility] Last Admin: 06/26/22 23:25 Dose: 40 mg Documented By: TATIANA Fentanyl (Fentanyl Citrate/Pf 100 Mcg/2 Ml Vial) 25 mcg IVPUSH Q5M PRN; Protocol PRN Reason: Pain, Moderate (Pain Scale 4-6 Hydrocortisone (Hydrocortisone 1 % Cream 28.35 Gm Tube) 1 appl TOPICAL BID [facility]; Protocol Last Admin: 06/27/22 09:28 Dose: 1 appl Documented By: JOHNATHAN Hydromorphone HCl (Hydromorphone Hcl 0.5 Mg/0.5 Ml Syringe) 0.25 mg IVPUSH Q5M PRN; Protocol PRN Reason: Pain, Severe (Pain Scale 7-10) Ampicillin Sodium/Sulbactam (Sodium 3 gm/ Sodium Chloride) 100 mls @ 200 mls/hr IV Q8H [facility] Last Infusion: 06/27/22 02:15 Dose: 0 mls/hr Documented By: TATIANA Ondansetron HCl (Ondansetron Hcl 4 Mg/2 Ml Vial) 4 mg IVPUSH Q8H PRN PRN Reason: Nausea and Vomiting Ondansetron HCl (Ondansetron Hcl 4 Mg/2 Ml Vial) 4 mg IVPUSH ONCE PRN PRN Reason: Nausea and Vomiting Sodium Chloride (0.9 % Sodium Chloride Flush 3 Ml Syringe) 3 ml IVFLUSH QSHIFT [facility] Last Admin: 06/27/22 09:28 Dose: Not Given Documented By: JOHNATHAN Non-Admin Reason: IV Running Labs 06/27/22 05:05 06/27/22 05:05 Labs: Laboratory Results - last 24 hr 06/27/22 06/27/22 06/27/22 05:05 05:05 07:12 MCV 95.8 MCH 31.5 MCHC 32.8 RDW 13.6 Plt Count 327 MPV 9.0 L Absolute Nucleated RBC 0.000 Nucleated RBC % (auto) 0.0 Anion Gap 11 L Estim Creat Clear Calc 97.3 Estimated GFR > 60 Random Glucose 69 Calcium 8.5 Carcinoembryonic Ag 3.10 Blood Type Antibody Screen 06/27/22 07:12 MCV MCH MCHC RDW Plt Count MPV Absolute Nucleated RBC Nucleated RBC % (auto) Anion Gap Estim Creat Clear Calc Estimated GFR Random Glucose Calcium Carcinoembryonic Ag Blood Type B Positive Antibody Screen NEGATIVE Microbiology Microbiology Results: Microbiology 06/24/22 23:09 Blood Culture - Preliminary Blood - Venous No growth after 48 hours. 06/24/22 23:09 Blood Culture - Preliminary Blood - Venous No growth after 48 hours. Assessment and Plan (1) Sepsis: Status: Acute (2) Aspiration pneumonia: Status: Acute (3) Partial small bowel obstruction: Status: Acute (4) Cancer of left colon: Status: Acute Plan 86-year-old male with past medical history of colon cancer recently diagnosed since April, comes into the hospital with complaints of abdominal pain nausea vomiting diarrhea found to have small-bowel obstruction # acute partial small-bowel obstruction 2/2 colon cancer moving bowels, diarrhea reported abdominal KUB as well as abdomen pelvic CT showed small partial small-bowel obstruction NPO pain control Surgery input appreciated; to do surgery today # Sepsis on admission 2/2 aspiration pneumonia likely secondary to aspiration Continue Unasyn negative blood cultures # nausea vomiting diarrhea resolved continue antiemetics # hypertension continue lisinopril # hyperlipidemia continue statin DVT prophylaxis: Lovenox given patient's small-bowel obstruction patient require overnight inpatient hospital stay for surgical intervention and monitor Time Spent With Patient Time: Total time managing care of this patient today ____ minutes. Quality Stroke Does the patient have a stroke diagnosis?: No VTE Prior VTE?: No VTE Risk Level:: Medical - moderate - high VTE Device Contraindication: Treatment Not Indicated VTE Drug Contraindication: N/A - Med Ordered
--- NOTE | 2022-06-27 13:48 | W.PM.OPN ---
Operative Note Operative Note Date of Service: 06/27/22 Narrative: Preoperative diagnosis Obstructing left colon poorly differentiated adenocarcinoma Postoperative diagnosis: same Procedure: hand assisted laparoscopic left hemicolectomy Surgeon: Fuad Rizvi MD Coremaking Machine Operator: Sofia Canales PA-C Anesthesia: general endotracheal Indications for procedure: 86 year male patient presenting with complaints of diarrhea alternating with constipation found on colonoscopy to have a nearly obstructing proximal left colon lesion. Subsequent biopsies revealed a poorly differentiated adenocarcinoma. CT enterography confirmed a large left colonic lesion with a narrow lumen. Patient developed symptoms of abdominal distension nausea and vomiting subsequently admitted over the weekend. He presents today for emergent left hemicolectomy Operative findings: mobile mass within the proximal left colon, Stephanie ink noted in the distal margin. Liver edge is were soft without palpable nodules. Serosal surfaces were smooth without evidence of metastasis. Palpable node noted in the region of the left colonic vessels. Specimen: left colon including splenic flexure for and distal transverse colon. Estimated blood loss: 50 mL Complications: none Procedure details: patient was brought to the OR placed in a supine position. After administering general anesthesia he was placed in a lithotomy position. Carreon catheter was placed. Patient's abdomen and perineum were prepped and draped in a sterile fashion. A surgical time-out was called the consent confirmed. Patient received preoperative antibiotics and Venodyne boots were in place. Local anesthesia was infiltrated in the upper midline. A 7.5 cm incision was then made in the upper midline carried out through subcutaneous tissue, through linea alba and peritoneum. A hand port was then inserted. The abdomen was insufflated to a pressure of 15 mmHg. A 2nd trocar was placed in the lower midline and a 3rd in left lower quadrant. The patient was placed in a reverse Trendelenburg position rotated to the right. Beginning at the Paddock flexure peritoneal attachments were taken down using LigaSure. The omentum was densely adherent to right lower quadrant from a previous appendectomy incision. This was mobilized using LigaSure. Adhesions to the omentum are also identified in the left lower quadrant possibly from previous diverticulitis. The omentum was completely mobilized at this point. The left colon was then mobilized along the white line of Toldt. Transverse colon was then mobilized in the lesser sac entered. At the midportion of the transverse colon mesentery was divided using LigaSure. An Endo-AC stapler was then used to divide the distal transverse colon. LigaSure was then used to divide the mesentery of the distal transverse colon, splenic flexure and left colon. Vascular pedicle was then stapled using a Endo AC with vascular load. The specimen was then brought up through the hand port incision. And a functional end-to-end anastomosis was then created by placing the proximal transverse colon adjacent to the proximal sigmoid colon. Enterotomies were made in both the transverse colon and sigmoid colon and a AC stapler placed to create anastomosis. A AC stapler was then used to divide the left colon and the specimen was passed off table to be immediately evaluated by pathology. TA staple was then used to close the colotomy site. The anastomosis was reinforced using interrupted Lembert 3-0 Surgilon sutures. Wounds were checked for hemostasis. The bowel was then returned to the abdominal cavity and small-bowel placed over the anastomosis. Omentum was also placed over the anastomosis. Wounds were then thoroughly irrigated with chlorhexidine irrigation. this was followed by 1 L of saline solution. Both solutions were completely evacuated. Fascia was then closed using a running Looped 0 PDS suture. fascia at the laparoscopic incision was closed using a 0 Polysorb suture. All incisions were then closed using skin ernesto. Sterile dressings were then applied. The patient tolerated the procedure well. Sponge, instrument, needle counts reported as correct. Patient was transferred to PACU in stable condition. Colon Resection Tumor location: Splenic flexure Extent of lymphovascular resection Splenic flexure: From left branches of the middle colic to left colic vessels with associa General Surg. - Synoptic Notes Colon Resection Tumor location: Splenic flexure Extent of Lymphovascular Resection: Splenic flexure: From left branches of the middle colic to left colic vessels with associa
[2022-06-27] MEDS: fentaNYL citrate/PF 100 MCG/2 ML VIAL 25 MCG IVPUSH ×4 (14:09→14:24)
[2022-06-27] MEDS: HYDROmorphone HCl 0.5 MG/0.5 ML SYRINGE 0.25 MG IVPUSH ×4 (14:24→14:44)
--- NOTE | 2022-06-27 14:34 | MHC.CM.PN ---
EMR REVIEWED, PT IN OR TODAY FOR LEFT HEMICOLECTOMY, ANTIC PT REMAIN INPT UNTIL RETURN OF BOWEL FX AND TOLERATING DIET, CM WILL CONT TO FOLLOW D/C NEEDS.
[2022-06-27] MEDS: Acetaminophen 1,000 MG/100 ML PIGGYBACK 400 MG IV ×2 (14:51→21:11)
[2022-06-27] MEDS: Dextrose 5 % and Lactated Ring 1,000 ML 80 ML IVCONT (14:57)
[2022-06-27] MEDS: HYDROmorphone HCl 0.5 MG/0.5 ML SYRINGE IVPUSH (22:57)
[2022-06-28] MEDS: Ampicillin Sodium/Sulbactam Na 3 GM in 0.9 % Sodium Chloride 100 ML IV ×3 (02:20→17:22)
[2022-06-28] MEDS: Acetaminophen 1,000 MG/100 ML PIGGYBACK 400 MG IV ×2 (02:21→08:11)
[2022-06-28] MEDS: Dextrose 5 % and Lactated Ring 1,000 ML 80 ML IVCONT (02:32)
[2022-06-28 03:06] VITALS: BP 124/59; PULSE 59; RESP 18; TEMP 36.2; O2SAT 100
--- NOTE | 2022-06-28 06:26 | PC.NURSE ---
while getting pt to bed from chair at [employer] lab technician had to lower him to floor because he was not able to hold balance. no injury to pt he was holding to bed and chair while transfer. security was notified to help with transfer. all staff notified that pt is max assist out of bed. this BIG DATA ADMIN WAS given in report that pt was 1xassist out of bed. Nursing supervisor steffen house notified. pt is high fall risk . observed and camera placed in room.
[2022-06-28 06:46] LABS: Anion Gap 15 (12-20); Blood Urea Nitrogen 7 mg/dL (9-16); Calcium 8.2 mg/dL (8.4-10.2); Carbon Dioxide 21 mmol/L (22-29); Chloride 105 mmol/L (96-108); Creatinine Clr Calc Pharmacy 94.1; Estimated Glomerular Filt Rate > 60; Glucose Random 110 mg/dL (60-115); Potassium 5.3 mmol/L (3.3-5.1); Sodium 136 mmol/L (135-145)
[2022-06-28 07:18] VITALS: BP 126/89; PULSE 70; RESP 18; TEMP 36.1; O2SAT 95
--- NOTE | 2022-06-28 07:36 | P.PNGS_ITS ---
Subjective Subjective Date of Service: 06/28/22 Interval history: Pod 1 following hand assisted laparoscopic left hemicolectomy for nearly obstructing colon cancer. Patient did require some pain medication earlier this morning but feels much improved this morning. He has been up to the bathroom and did have the urge to have a bowel but did not pass any gas or stool. Physical Exam Vital Signs: Vital Signs: Last Vital Signs Temp 96.9 F 06/28/22 07:18 Pulse 70 06/28/22 07:18 Resp 18 06/28/22 07:18 BP 126/89 06/28/22 07:18 Pulse Ox 95 06/28/22 07:18 O2 Del Method 06/28/22 07:18 O2 Flow Rate 2 06/28/22 03:06 BMI result Body Mass Index 24.5 Const: General: comfortable and no acute distress Nutritional Appearance: well nourished Orientation/consciousness: patient oriented x3 Limitations: no limitations Resp: Effort & Inspection: normal respiratory effort Auscultation: clear to auscultation bilaterally GI: Other: Abdomen soft, flat, absent bowel sounds, incisions clean, dry, and intact. Skin: Other: Warm, dry, no rash Neuro: General: patient oriented x3 Extrem: Other: No peripheral edema Objective Data Active Medications Acetaminophen (Acetaminophen 325 Mg Tablet) 650 mg PO Q6H PRN PRN Reason: Pain, Mild (Pain Scale 1-3) Albuterol Sulfate (Albuterol Sulfate (0.083%) 2.5 Mg/3 Ml Vial.Neb) 2.5 mg INHALE ONCE PRN PRN Reason: Wheezing Docusate Sodium (Docusate Sodium 100 Mg Capsule) 100 mg PO DAILY PRN PRN Reason: Constipation Enoxaparin Sodium (Enoxaparin Sodium 40 Mg/0.4 Ml Syringe) 40 mg SUBCUT Q24H [facility] Last Admin: 06/26/22 23:25 Dose: 40 mg Documented By: TATIANA Hydrocortisone (Hydrocortisone 1 % Cream 28.35 Gm Tube) 1 appl TOPICAL BID [facility]; Protocol Last Admin: 06/27/22 21:19 Dose: 1 appl Documented By: PELON Hydromorphone HCl (Hydromorphone Hcl 0.5 Mg/0.5 Ml Syringe) 0.5 mg IVPUSH Q3H PRN; Protocol PRN Reason: Pain, Severe (Pain Scale 7-10) Last Admin: 06/27/22 22:57 Dose: 0.5 mg Documented By: PELON Ampicillin Sodium/Sulbactam (Sodium 3 gm/ Sodium Chloride) 100 mls @ 200 mls/hr IV Q8H [facility] Last Infusion: 06/28/22 02:51 Dose: 0 mls/hr Documented By: PELON Acetaminophen (Ofirmev) 1,000 mg in 100 mls @ 400 mls/hr IV Q6H [facility] Stop: 06/28/22 09:01 Last Infusion: 06/28/22 02:50 Dose: 0 mls/hr Documented By: PELON Dextrose/Lactated Ringer's (D5lr) 1,000 mls @ 80 mls/hr IVCONT .[id number] [facility] Last Admin: 06/28/22 02:32 Dose: 80 mls/hr Documented By: PELON Ondansetron HCl (Ondansetron Hcl 4 Mg/2 Ml Vial) 4 mg IVPUSH Q8H PRN PRN Reason: Nausea and Vomiting Ondansetron HCl (Ondansetron Hcl 4 Mg/2 Ml Vial) 4 mg IVPUSH ONCE PRN PRN Reason: Nausea and Vomiting Sodium Chloride (0.9 % Sodium Chloride Flush 3 Ml Syringe) 3 ml IVFLUSH QSHIFT [facility] Last Admin: 06/27/22 23:49 Dose: Not Given Documented By: PELON Non-Admin Reason: IV Running Labs 06/27/22 05:05 06/28/22 05:09 Labs: Laboratory Results - last 24 hr 06/27/22 06/27/22 06/28/22 07:12 07:12 05:09 Anion Gap 15 Estim Creat Clear Calc 94.1 Estimated GFR > 60 Random Glucose 110 Calcium 8.2 L Carcinoembryonic Ag 3.10 Blood Type B Positive Antibody Screen NEGATIVE Procedures Date of Service Date of Service: 06/28/22 Progress Note: A&P Assessment and plan (1) Cancer of left colon: Status: Acute Plan 86-year-old male pod 1 following hand assisted laparoscopic left hemicolectomy. He is hemodynamically stable this morning and tolerating clear liquids. Abdomen is soft incisions are clean and intact. Encourage patient to ambulate in the hallways today. Will keep on clear liquids for now. Recheck laboratories in a.m.. DC Carreon catheter and restart Lovenox for VTE prophylaxis. Time Spent With Patient Time: Total time managing care of this patient today ____ minutes. No Severe Sepsis: No Severe Sepsis Quality Stroke Does the patient have a stroke diagnosis?: No VTE Prior VTE?: No VTE Risk Level:: Medical - moderate - high VTE Device Contraindication: Treatment Not Indicated VTE Drug Contraindication: N/A - Med Ordered
[2022-06-28 07:42] LABS: Hematocrit 33.1 % (42.0-52.0); Hemoglobin 11.2 g/dl (14.0-18.0); Mean Corpuscular HGB Conc 33.8 g/dl (31.0-36.0); Mean Corpuscular Hemoglobin 31.4 pg (27.0-33.0); Mean Corpuscular Volume 92.7 fL (80.0-98.0); Mean Platelet Volume 8.7 fL (9.4-12.4); Platelet Count 337 X10*3/uL (160-400); Red Blood Count 3.57 X10*6/uL (4.60-5.80); Red Cell Distribution Width 13.2 % (11.0-16.0)
[2022-06-28] MEDS: Sodium Polystyrene Sulfon/Sorb 15 GM/60 ML ORAL.SUSP PO (08:11)
[2022-06-28] MEDS: Hydrocortisone 1 % Cream 28.35 GM TUBE 1 APPL TOPICAL ×2 (08:17→19:44)
--- NOTE | 2022-06-28 10:35 | HO.PM.IMPN ---
Subjective Subjective Date of Service: 06/28/22 Interval History: the patient was seen and eval this morning Feels good after surgery went well tolerating clear liquids no SOB, cough, fever or chills no other overnight events Review of Systems Review of Systems: Yes all other systems are reviewed and are negative Physical Exam Vital Signs: Vital Signs: Last Vital Signs Temp 96.9 F 06/28/22 07:18 Pulse 70 06/28/22 07:18 Resp 18 06/28/22 07:18 BP 126/89 06/28/22 07:18 Pulse Ox 95 06/28/22 07:18 O2 Del Method 06/28/22 07:18 O2 Flow Rate 2 06/28/22 03:06 BMI result Body Mass Index 24.5 Const: Other: Constitutional : Awake, interactive, not in distress Neck : Normal inspection, Supple Cardiovascular : RRR, no JVP, no lower extremity edema Respiratory : good bilateral air entry, fine basal crackles, wheezes or rhonchi Gastrointestinal: soft, lax, decreased bowel sounds, surgical wound covered with dressing with no drainage noted Skin : Warm, Dry Neurological : Alert & oriented x3, No focal deficit Objective Data Active Medications Acetaminophen (Acetaminophen 325 Mg Tablet) 650 mg PO Q6H PRN PRN Reason: Pain, Mild (Pain Scale 1-3) Albuterol Sulfate (Albuterol Sulfate (0.083%) 2.5 Mg/3 Ml Vial.Neb) 2.5 mg INHALE ONCE PRN PRN Reason: Wheezing Docusate Sodium (Docusate Sodium 100 Mg Capsule) 100 mg PO DAILY PRN PRN Reason: Constipation Enoxaparin Sodium (Enoxaparin Sodium 40 Mg/0.4 Ml Syringe) 40 mg SUBCUT Q24H [facility] Last Admin: 06/26/22 23:25 Dose: 40 mg Documented By: TATIANA Hydrocortisone (Hydrocortisone 1 % Cream 28.35 Gm Tube) 1 appl TOPICAL BID [facility]; Protocol Last Admin: 06/28/22 08:17 Dose: 1 appl Documented By: JOHNATHAN Hydromorphone HCl (Hydromorphone Hcl 0.5 Mg/0.5 Ml Syringe) 0.5 mg IVPUSH Q3H PRN; Protocol PRN Reason: Pain, Severe (Pain Scale 7-10) Last Admin: 06/27/22 22:57 Dose: 0.5 mg Documented By: PELON Ampicillin Sodium/Sulbactam (Sodium 3 gm/ Sodium Chloride) 100 mls @ 200 mls/hr IV Q8H [facility] Last Infusion: 06/28/22 02:51 Dose: 0 mls/hr Documented By: PELON Dextrose/Lactated Ringer's (D5lr) 1,000 mls @ 80 mls/hr IVCONT .[id number] [facility] Last Infusion: 06/28/22 09:27 Dose: 0 mls/hr Documented By: JOHNATHAN Ondansetron HCl (Ondansetron Hcl 4 Mg/2 Ml Vial) 4 mg IVPUSH Q8H PRN PRN Reason: Nausea and Vomiting Ondansetron HCl (Ondansetron Hcl 4 Mg/2 Ml Vial) 4 mg IVPUSH ONCE PRN PRN Reason: Nausea and Vomiting Sodium Chloride (0.9 % Sodium Chloride Flush 3 Ml Syringe) 3 ml IVFLUSH QSHIFT [facility] Last Admin: 06/28/22 08:17 Dose: Not Given Documented By: JOHNATHAN Non-Admin Reason: IV Running Labs 06/28/22 07:25 06/28/22 05:09 Labs: Laboratory Results - last 24 hr 06/28/22 06/28/22 05:09 07:25 MCV 92.7 MCH 31.4 MCHC 33.8 RDW 13.2 Plt Count 337 MPV 8.7 L Absolute Nucleated RBC 0.000 Nucleated RBC % (auto) 0.0 Anion Gap 15 Estim Creat Clear Calc 94.1 Estimated GFR > 60 Random Glucose 110 Calcium 8.2 L Assessment and Plan (1) Cancer of left colon: Status: Acute (2) Aspiration pneumonia: Status: Acute (3) Partial small bowel obstruction: Status: Acute Plan 86-year-old male with past medical history of colon cancer recently diagnosed since April, comes into the hospital with complaints of abdominal pain nausea vomiting diarrhea found to have small-bowel obstruction # acute partial small-bowel obstruction 2/2 colon cancer post R&A POD1 tolerating clear liquids pain control Surgery input appreciated # Sepsis on admission 2/2 aspiration pneumonia likely secondary to aspiration Continue Unasyn negative blood cultures change to po once tolerant # hypertension continue lisinopril # hyperlipidemia continue statin DVT prophylaxis: Lovenox needs overnight hospital stay Follow up post OP, pending tolerance of diet. Time Spent With Patient Time: Total time managing care of this patient today ____ minutes. Quality Stroke Does the patient have a stroke diagnosis?: No VTE Prior VTE?: No VTE Risk Level:: Medical - moderate - high VTE Device Contraindication: Treatment Not Indicated VTE Drug Contraindication: N/A - Med Ordered
[2022-06-28] MEDS: Acetaminophen 325 MG TABLET 650 MG PO ×3 (11:19→22:24)
[2022-06-28 11:27] VITALS: BP 117/60; PULSE 67; RESP 18; TEMP 36.4; O2SAT 97
--- NOTE | 2022-06-28 14:16 | HO.POSTANES ---
Post Anesthesia Evaluation Post Anesthesia Evaluation Vital Signs: Vital Signs Temp Pulse Resp BP Pulse Ox O2 Del Method O2 Flow Rate 06/28/22 11:27 97.6 F 67 18 117/60 97 Room Air 06/28/22 07:18 96.9 F 70 18 126/89 95 Room Air 06/28/22 03:06 97.1 F 59 18 124/59 L 100 Nasal Cannula 2 Anesthesia: General Endotracheal-GETA Mental Status: Awake Pain Control: Satisfactory Nausea/Vomiting: None Hydration: Adequate Anesthesia-Related Issues: No Anes. Related Issues
[2022-06-28 15:31] VITALS: BP 137/63; PULSE 71; RESP 18; TEMP 36.2; O2SAT 95
[2022-06-28] MEDS: Dextrose 5 % and Lactated Ring 1,000 ML 50 ML IVCONT (16:58)
[2022-06-28 20:04] VITALS: BP 133/68; PULSE 59; RESP 18; TEMP 36.7; O2SAT 99
[2022-06-28 23:35] VITALS: BP 157/74; PULSE 73; RESP 16; TEMP 36.4; O2SAT 99
[2022-06-29 02:56] VITALS: BP 132/62; PULSE 73; RESP 16; TEMP 36.3; O2SAT 97
[2022-06-29] MEDS: Enoxaparin Sodium 40 MG/0.4 ML SYRINGE SUBCUT (02:58)
[2022-06-29] MEDS: Ampicillin Sodium/Sulbactam Na 3 GM in 0.9 % Sodium Chloride 100 ML IV ×3 (03:01→17:27)
[2022-06-29 06:06] LABS: MANUAL DIFF FLAG NO
[2022-06-29 06:08] LABS: Basophils Percent Auto 0.3 % (0-2); Eosinophils Absolute Auto 0.1 X10*3/uL (0.0-0.4); Eosinophils Percent Auto 0.6 % (0-4); Hematocrit 31.8 % (42.0-52.0); Hemoglobin 10.6 g/dl (14.0-18.0); Imm Gran Abs Auto 0.05 X10*3/uL (0.00-0.03); Imm Gran Pct Auto 0.5 % (0.0-0.4); Lymphocytes Absolute Auto 2.3 X10*3/uL (1.2-4.9); Lymphocytes Percent Auto 21.1 % (20-40); Mean Corpuscular HGB Conc 33.3 g/dl (31.0-36.0); Mean Corpuscular Hemoglobin 31.2 pg (27.0-33.0); Mean Corpuscular Volume 93.5 fL (80.0-98.0); Monocytes Absolute Auto 1.1 X10*3/uL (0.1-1.2); Monocytes Percent Auto 10.2 % (2-11); Neutrophils Absolute Auto 7.2 x10*3/uL (2.0-8.3); Neutrophils Percent Auto 67.3 % (45-73); Platelet Count 295 X10*3/uL (160-400); Red Cell Distribution Width 13.5 % (11.0-16.0); White Blood Count 10.7 X10*3/uL (4.8-10.8)
[2022-06-29 06:37] LABS: Anion Gap 12 (12-20); Blood Urea Nitrogen 8 mg/dL (9-16); Calcium 8.1 mg/dL (8.4-10.2); Carbon Dioxide 25 mmol/L (22-29); Chloride 104 mmol/L (96-108); Creatinine Clr Calc Pharmacy 106.5; Estimated Glomerular Filt Rate > 60; Glucose Random 91 mg/dL (60-115); Potassium 3.5 mmol/L (3.3-5.1); Sodium 137 mmol/L (135-145)
[2022-06-29 07:29] VITALS: BP 139/64; PULSE 63; RESP 16; TEMP 36.2; O2SAT 98
[2022-06-29] MEDS: 0.9 % Sodium Chloride Flush 3 ML SYRINGE IVFLUSH ×3 (08:36→19:40)
--- NOTE | 2022-06-29 08:46 | PM.PNGS ---
Subjective Subjective Date of Service: 06/29/22 Interval history: Patient feels well, tolerating a regular diet and passing bowels. He denies significant abdominal pain. Physical Exam Vital Signs: Vital Signs: Last Vital Signs Temp 97.1 F 06/29/22 07:29 Pulse 63 06/29/22 07:29 Resp 16 06/29/22 07:29 BP 139/64 06/29/22 07:29 Pulse Ox 98 06/29/22 07:29 O2 Del Method 06/29/22 07:29 O2 Flow Rate 2 06/28/22 03:06 BMI result Body Mass Index 24.5 Const: Other: Awake, alert, no acute distress Resp: Other: breathing comfortably on room air, no respiratory distress GI: Other: soft, mild tympany to percussion, nontender to palpation. Midline incision clean, dry, and intact, trocar incisions clean. No evidence of wound infection. Skin: Other: Warm, dry, no rash Extrem: General: Yes no clubbing, cyanosis or edema Objective Data Active Medications Acetaminophen (Acetaminophen 325 Mg Tablet) 650 mg PO Q4H PRN PRN Reason: Pain, Mild (Pain Scale 1-3) Last Admin: 06/28/22 22:24 Dose: 650 mg Documented By: SHANDRA Albuterol Sulfate (Albuterol Sulfate (0.083%) 2.5 Mg/3 Ml Vial.Neb) 2.5 mg INHALE ONCE PRN PRN Reason: Wheezing Docusate Sodium (Docusate Sodium 100 Mg Capsule) 100 mg PO DAILY PRN PRN Reason: Constipation Enoxaparin Sodium (Enoxaparin Sodium 40 Mg/0.4 Ml Syringe) 40 mg SUBCUT Q24H [facility] Last Admin: 06/29/22 02:58 Dose: 40 mg Documented By: SHANDRA Hydrocortisone (Hydrocortisone 1 % Cream 28.35 Gm Tube) 1 appl TOPICAL BID [facility]; Protocol Last Admin: 06/28/22 19:44 Dose: 1 appl Documented By: SHANDRA Hydromorphone HCl (Hydromorphone Hcl 0.5 Mg/0.5 Ml Syringe) 0.5 mg IVPUSH Q3H PRN; Protocol PRN Reason: Pain, Severe (Pain Scale 7-10) Last Admin: 06/27/22 22:57 Dose: 0.5 mg Documented By: PELON Ampicillin Sodium/Sulbactam (Sodium 3 gm/ Sodium Chloride) 100 mls @ 200 mls/hr IV Q8H [facility] Last Admin: 06/29/22 08:36 Dose: 200 mls/hr Documented By: JUANITO Dextrose/Lactated Ringer's (D5lr) 1,000 mls @ 50 mls/hr IVCONT .Q20H [facility] Last Infusion: 06/28/22 17:58 Dose: 50 mls/hr Documented By: JOHNATHAN Ondansetron HCl (Ondansetron Hcl 4 Mg/2 Ml Vial) 4 mg IVPUSH Q8H PRN PRN Reason: Nausea and Vomiting Ondansetron HCl (Ondansetron Hcl 4 Mg/2 Ml Vial) 4 mg IVPUSH ONCE PRN PRN Reason: Nausea and Vomiting Sodium Chloride (0.9 % Sodium Chloride Flush 3 Ml Syringe) 3 ml IVFLUSH QSHIFT [facility] Last Admin: 06/29/22 08:36 Dose: 3 ml Documented By: JUANITO Labs 06/29/22 05:09 06/29/22 05:09 Labs: Laboratory Results - last 24 hr 06/29/22 06/29/22 05:09 05:09 MCV 93.5 MCH 31.2 MCHC 33.3 RDW 13.5 Plt Count 295 MPV 9.0 L Immature Gran % (Auto) 0.5 H Neut % (Auto) 67.3 Lymph % (Auto) 21.1 Stearns % (Auto) 10.2 Eos % (Auto) 0.6 Baso % (Auto) 0.3 Lymph # (Auto) 2.3 Stearns # (Auto) 1.1 Eos # (Auto) 0.1 Baso # (Auto) 0.0 Abs Immat Gran (auto) 0.05 H Absolute Neuts (auto) 7.2 Absolute Nucleated RBC 0.000 Nucleated RBC % (auto) 0.0 Anion Gap 12 Estim Creat Clear Calc 106.5 Estimated GFR > 60 Random Glucose 91 Calcium 8.1 L Procedures Date of Service Date of Service: 06/29/22 Progress Note: A&P Assessment and plan (1) Cancer of left colon: Status: Acute Plan pod 2 following hand assisted laparoscopic left colectomy for nearly obstructing left colon cancer. Patient is doing well tolerating a solid diet. He started moving his bowels yesterday reports decreased abdominal pain. discharge planning. Time Spent With Patient Time: Total time managing care of this patient today ____ minutes. No Severe Sepsis: No Severe Sepsis Quality Stroke Does the patient have a stroke diagnosis?: No VTE Prior VTE?: No VTE Risk Level:: Medical - moderate - high VTE Device Contraindication: Treatment Not Indicated VTE Drug Contraindication: N/A - Med Ordered
[2022-06-29] MEDS: Acetaminophen 325 MG TABLET 650 MG PO ×3 (10:20→22:14)
[2022-06-29] MEDS: Hydrocortisone 1 % Cream 28.35 GM TUBE 1 APPL TOPICAL ×2 (10:21→19:40)
--- NOTE | 2022-06-29 10:21 | HO.PM.IMPN ---
Subjective Subjective Date of Service: 06/29/22 Interval History: cc: abd pain interval history:improving had bm Physical Exam Vital Signs: Vital Signs: Last Vital Signs Temp 97.1 F 06/29/22 07:29 Pulse 63 06/29/22 07:29 Resp 16 06/29/22 07:29 BP 139/64 06/29/22 07:29 Pulse Ox 98 06/29/22 07:29 O2 Del Method 06/29/22 07:29 O2 Flow Rate 2 06/28/22 03:06 BMI result Body Mass Index 24.5 General: AO X 3, no acute distress Resp: CTA bilateral, no accessory muscles used CVS: S1,S2,RRR GI: soft, non tender, non distended, incision sites appear clean Neuro: motor grossly intact, alert Psych: appropriate affect, appropriate insight Objective Data Active Medications Acetaminophen (Acetaminophen 325 Mg Tablet) 650 mg PO Q4H PRN PRN Reason: Pain, Mild (Pain Scale 1-3) Last Admin: 06/28/22 22:24 Dose: 650 mg Documented By: SHANDRA Albuterol Sulfate (Albuterol Sulfate (0.083%) 2.5 Mg/3 Ml Vial.Neb) 2.5 mg INHALE ONCE PRN PRN Reason: Wheezing Docusate Sodium (Docusate Sodium 100 Mg Capsule) 100 mg PO DAILY PRN PRN Reason: Constipation Enoxaparin Sodium (Enoxaparin Sodium 40 Mg/0.4 Ml Syringe) 40 mg SUBCUT Q24H [facility] Last Admin: 06/29/22 02:58 Dose: 40 mg Documented By: SHANDRA Hydrocortisone (Hydrocortisone 1 % Cream 28.35 Gm Tube) 1 appl TOPICAL BID [facility]; Protocol Last Admin: 06/28/22 19:44 Dose: 1 appl Documented By: SHANDRA Hydromorphone HCl (Hydromorphone Hcl 0.5 Mg/0.5 Ml Syringe) 0.5 mg IVPUSH Q3H PRN; Protocol PRN Reason: Pain, Severe (Pain Scale 7-10) Last Admin: 06/27/22 22:57 Dose: 0.5 mg Documented By: PELON Ampicillin Sodium/Sulbactam (Sodium 3 gm/ Sodium Chloride) 100 mls @ 200 mls/hr IV Q8H [facility] Last Infusion: 06/29/22 09:14 Dose: 0 mls/hr Documented By: JUANITO Dextrose/Lactated Ringer's (D5lr) 1,000 mls @ 50 mls/hr IVCONT .Q20H [facility] Last Infusion: 06/28/22 17:58 Dose: 50 mls/hr Documented By: JOHNATHAN Ondansetron HCl (Ondansetron Hcl 4 Mg/2 Ml Vial) 4 mg IVPUSH Q8H PRN PRN Reason: Nausea and Vomiting Ondansetron HCl (Ondansetron Hcl 4 Mg/2 Ml Vial) 4 mg IVPUSH ONCE PRN PRN Reason: Nausea and Vomiting Sodium Chloride (0.9 % Sodium Chloride Flush 3 Ml Syringe) 3 ml IVFLUSH QSHIFT [facility] Last Admin: 06/29/22 08:36 Dose: 3 ml Documented By: JUANITO Labs 06/29/22 05:09 06/29/22 05:09 Labs: Laboratory Results - last 24 hr 06/29/22 06/29/22 05:09 05:09 MCV 93.5 MCH 31.2 MCHC 33.3 RDW 13.5 Plt Count 295 MPV 9.0 L Immature Gran % (Auto) 0.5 H Neut % (Auto) 67.3 Lymph % (Auto) 21.1 [place] % (Auto) 10.2 Eos % (Auto) 0.6 Baso % (Auto) 0.3 Lymph # (Auto) 2.3 [place] # (Auto) 1.1 Eos # (Auto) 0.1 Baso # (Auto) 0.0 Abs Immat Gran (auto) 0.05 H Absolute Neuts (auto) 7.2 Absolute Nucleated RBC 0.000 Nucleated RBC % (auto) 0.0 Anion Gap 12 Estim Creat Clear Calc 106.5 Estimated GFR > 60 Random Glucose 91 Calcium 8.1 L Assessment and Plan (1) Cancer of left colon: Status: Acute (2) Aspiration pneumonia: Status: Acute (3) Partial small bowel obstruction: Status: Acute Plan 86-year-old male with past medical history of colon cancer recently diagnosed April 2023, presented with complaints of abdominal pain nausea vomiting diarrhea found to have partially obstructing proximal descending colon mass acute partial large-bowel obstruction 2/2 colon cancer POD2 - left elvie-colectomy had BM pain somewhat controlled, tolerating solids Sepsis on admission 2/2 aspiration pneumonia Continue Unasyn negative blood cultures hypertension continue lisinopril hyperlipidemia continue statin DVT prophylaxis: Lovenox reason for continued hospitalization: awaiting po tolerance and pain tolerance Time Spent With Patient Time: Total time managing care of this patient today ____ minutes. Quality Stroke Does the patient have a stroke diagnosis?: No VTE Prior VTE?: No VTE Risk Level:: Medical - moderate - high VTE Device Contraindication: Treatment Not Indicated VTE Drug Contraindication: N/A - Med Ordered
[2022-06-29 11:17] VITALS: BP 130/61; PULSE 63; RESP 16; TEMP 36.7; O2SAT 97
[2022-06-29 19:14] VITALS: BP 124/58; PULSE 68; RESP 18; TEMP 36.7; O2SAT 98
[2022-06-30] MEDS: Ampicillin Sodium/Sulbactam Na 3 GM in 0.9 % Sodium Chloride 100 ML IV ×3 (01:38→17:03)
[2022-06-30] MEDS: Enoxaparin Sodium 40 MG/0.4 ML SYRINGE SUBCUT (01:38)
[2022-06-30 03:12] VITALS: BP 144/67; PULSE 61; RESP 18; TEMP 36.9; O2SAT 100
[2022-06-30 06:34] LABS: Hematocrit 29.7 % (42.0-52.0); Hemoglobin 9.9 g/dl (14.0-18.0); Mean Corpuscular HGB Conc 33.3 g/dl (31.0-36.0); Mean Corpuscular Volume 93.1 fL (80.0-98.0); Mean Platelet Volume 8.8 fL (9.4-12.4); Platelet Count 337 X10*3/uL (160-400); Red Blood Count 3.19 X10*6/uL (4.60-5.80); Red Cell Distribution Width 13.3 % (11.0-16.0); White Blood Count 8.5 X10*3/uL (4.8-10.8)
[2022-06-30 06:49] LABS: Anion Gap 12 (12-20); Blood Urea Nitrogen 9 mg/dL (9-16); Calcium 7.9 mg/dL (8.4-10.2); Carbon Dioxide 25 mmol/L (22-29); Chloride 103 mmol/L (96-108); Creatinine Clr Calc Pharmacy 115.2; Estimated Glomerular Filt Rate > 60; Glucose Fasting 80 mg/dL (60-99); Potassium 3.4 mmol/L (3.3-5.1); Sodium 137 mmol/L (135-145)
[2022-06-30 07:34] VITALS: BP 140/61; PULSE 62; RESP 17; TEMP 36.4; O2SAT 96
--- NOTE | 2022-06-30 07:53 | PM.PNGS ---
Subjective Subjective Date of Service: 06/30/22 <Sofia Canales PA-C - Last Filed: 06/30/22 07:56> 06/30/22 <Fuad Rizvi MD - Last Filed: 06/30/22 08:04> Interval history: Anxious to go home as he lives alone. Pain control is improved. Had liquid BM yesterday but nothing since. OOB and ambulating. Tolerating solid diet. <Sofia Canales PA-C - Last Filed: 06/30/22 07:56> Physical Exam Vital Signs: Vital Signs: Last Vital Signs Temp 97.6 F 06/30/22 07:34 Pulse 62 06/30/22 07:34 Resp 17 06/30/22 07:34 BP 140/61 H 06/30/22 07:34 Pulse Ox 96 06/30/22 07:34 O2 Del Method 06/30/22 07:34 O2 Flow Rate 2 06/28/22 03:06 BMI result Body Mass Index 24.5 <Sofia Canales PA-C - Last Filed: 06/30/22 07:56> Const: General: comfortable, no acute distress and alert <Sofia Canales PA-C - Last Filed: 06/30/22 07:56> Orientation/consciousness: patient oriented x3 <ROSALIO Carlson Last Filed: 06/30/22 07:56> Resp: Effort & Inspection: normal respiratory effort <Sofia Canales PA-C - Last Filed: 06/30/22 07:56> GI: Inspection: No distended and Yes incision (clean, no erythema) <Sofia Canales PA-C - Last Filed: 06/30/22 07:56> Palpation (GI): Soft to palpation, Tenderness to palpation present (GI) (mild, incisional), no guarding and not rigid <ROSALIO Carlson Last Filed: 06/30/22 07:56> Skin: General skin exam: no rashes or lesions noted <ROSALIO Carlson Last Filed: 06/30/22 07:56> Neuro: General: patient oriented x3 <ROSALIO Carlson Last Filed: 06/30/22 07:56> Objective Data Active Medications Acetaminophen (Acetaminophen 325 Mg Tablet) 650 mg PO Q4H PRN PRN Reason: Pain, Mild (Pain Scale 1-3) Last Admin: 06/29/22 22:14 Dose: 650 mg Documented By: JOHNATHAN Albuterol Sulfate (Albuterol Sulfate (0.083%) 2.5 Mg/3 Ml Vial.Neb) 2.5 mg INHALE ONCE PRN PRN Reason: Wheezing Atorvastatin Calcium (Atorvastatin Calcium 10 Mg Tablet) 10 mg PO DAILY [facility] Docusate Sodium (Docusate Sodium 100 Mg Capsule) 100 mg PO DAILY PRN PRN Reason: Constipation Enoxaparin Sodium (Enoxaparin Sodium 40 Mg/0.4 Ml Syringe) 40 mg SUBCUT Q24H [facility] Last Admin: 06/30/22 01:38 Dose: 40 mg Documented By: JOHNATHAN Hydrocortisone (Hydrocortisone 1 % Cream 28.35 Gm Tube) 1 appl TOPICAL BID [facility]; Protocol Last Admin: 06/29/22 19:40 Dose: 1 appl Documented By: JOHNATHAN Hydromorphone HCl (Hydromorphone Hcl 0.5 Mg/0.5 Ml Syringe) 0.5 mg IVPUSH Q3H PRN; Protocol PRN Reason: Pain, Severe (Pain Scale 7-10) Last Admin: 06/27/22 22:57 Dose: 0.5 mg Documented By: PELON Ampicillin Sodium/Sulbactam (Sodium 3 gm/ Sodium Chloride) 100 mls @ 200 mls/hr IV Q8H [facility] Last Infusion: 06/30/22 02:14 Dose: 0 mls/hr Documented By: JOHNATHAN Lisinopril (Lisinopril 2.5 Mg Tablet) 2.5 mg PO DAILY [facility]; Protocol Ondansetron HCl (Ondansetron Hcl 4 Mg/2 Ml Vial) 4 mg IVPUSH Q8H PRN PRN Reason: Nausea and Vomiting Ondansetron HCl (Ondansetron Hcl 4 Mg/2 Ml Vial) 4 mg IVPUSH ONCE PRN PRN Reason: Nausea and Vomiting Sodium Chloride (0.9 % Sodium Chloride Flush 3 Ml Syringe) 3 ml IVFLUSH QSHIFT [facility] Last Admin: 06/29/22 19:40 Dose: 3 ml Documented By: JOHNATHAN <Sofia Canales PA-C - Last Filed: 06/30/22 07:56> Labs CBC & Chem 7: 06/30/22 05:20 06/30/22 05:20 <Sofia Canales PA-C - Last Filed: 06/30/22 07:56> Labs: Laboratory Results - last 24 hr 06/30/22 06/30/22 05:20 05:20 MCV 93.1 MCH 31.0 MCHC 33.3 RDW 13.3 Plt Count 337 MPV 8.8 L Absolute Nucleated RBC 0.000 Nucleated RBC % (auto) 0.0 Anion Gap 12 Estim Creat Clear Calc 115.2 Estimated GFR > 60 Fasting Glucose 80 Calcium 7.9 L <Sofia Canales PA-C - Last Filed: 06/30/22 07:56> Microbiology Microbiology Results: Microbiology 06/24/22 23:09 Blood Culture - Final Blood - Venous No growth after 5 days. 06/24/22 23:09 Blood Culture - Final Blood - Venous No growth after 5 days. <Sofia Canales PA-C - Last Filed: 06/30/22 07:56> Procedures Date of Service Date of Service: 06/30/22 <Sofia Canales PA-C - Last Filed: 06/30/22 07:56> Progress Note: A&P Assessment and plan (1) Cancer of left colon: Status: Acute <Sofia Canales PA-C - Last Filed: 06/30/22 07:56> (2) Colon obstruction: Status: Acute <ROSALIO Carlson Last Filed: 06/30/22 07:56> Assessment and Plan: POD #3 following hand assisted laparoscopic left colectomy for nearly obstructing left colon cancer. Patient is doing well post op and tolerating a solid diet. Abd exam is benign, incision clean. Continue pain control, ambulation. Will reassess later today for possible dc to home if patient more comfortable, if not plan for tomorrow if medically stable. <Sofia Canales PA-C - Last Filed: 06/30/22 07:56> POD #3 following hand assisted laparoscopic left colectomy for nearly obstructing left colon cancer. Patient is doing well post op and tolerating a solid diet. Abd exam is benign, incision clean. Continue pain control, ambulation. Will reassess later today for possible dc to home if patient more comfortable, if not plan for tomorrow if medically stable. Overall patient is doing well. Abdomen is soft with mild tympany to percussion. Pathology is pending. Laboratories are okay. Agree with the above assessment and plan. Would hold discharge for now; encourage patient to ambulate in the hallways. Patient expressed agreement and agrees with the plan <Fuad Rizvi MD - Last Filed: 06/30/22 08:04> Time Spent With Patient Time: Total time managing care of this patient today ____ minutes. <Sofia Canales PA-C - Last Filed: 06/30/22 07:56> Quality Stroke Does the patient have a stroke diagnosis?: No <Sofia Canales PA-C - Last Filed: 06/30/22 07:56> VTE Prior VTE?: No <Sofia Canales PA-C - Last Filed: 06/30/22 07:56> VTE Risk Level:: Medical - moderate - high <Sofia Canales PA-C - Last Filed: 06/30/22 07:56> VTE Device Contraindication: Treatment Not Indicated <Sofia Canales PA-C - Last Filed: 06/30/22 07:56> VTE Drug Contraindication: N/A - Med Ordered <Sofia Canales PA-C - Last Filed: 06/30/22 07:56>
[2022-06-30] MEDS: Atorvastatin Calcium 10 MG TABLET PO (08:14)
[2022-06-30] MEDS: 0.9 % Sodium Chloride Flush 3 ML SYRINGE IVFLUSH ×3 (08:14→20:13)
[2022-06-30] MEDS: lisinopriL 2.5 MG TABLET PO (08:14)
[2022-06-30] MEDS: Hydrocortisone 1 % Cream 28.35 GM TUBE 1 APPL TOPICAL ×2 (08:15→20:13)
[2022-06-30] MEDS: Acetaminophen 325 MG TABLET 650 MG PO ×3 (09:46→21:55)
--- NOTE | 2022-06-30 10:42 | P.PNIM_ITS ---
Subjective Subjective Date of Service: 06/30/22 Interval History: cc: abd pain interval history:improving had loose bm Physical Exam Vital Signs: Vital Signs: Last Vital Signs Temp 97.6 F 06/30/22 07:34 Pulse 62 06/30/22 07:34 Resp 17 06/30/22 07:34 BP 140/61 H 06/30/22 07:34 Pulse Ox 96 06/30/22 07:34 O2 Del Method 06/30/22 07:34 O2 Flow Rate 2 06/28/22 03:06 BMI result Body Mass Index 24.5 Const: General: comfortable, no acute distress and alert Orientation/consciousness: patient oriented x3 Resp: Effort & Inspection: normal respiratory effort GI: Inspection: No distended and Yes incision (clean, no erythema) Palpation (GI): Soft to palpation, Tenderness to palpation present (GI) (mild, incisional), no guarding and not rigid Skin: General skin exam: no rashes or lesions noted Neuro: General: patient oriented x3 Objective Data Active Medications Acetaminophen (Acetaminophen 325 Mg Tablet) 650 mg PO Q4H PRN PRN Reason: Pain, Mild (Pain Scale 1-3) Last Admin: 06/30/22 09:46 Dose: 650 mg Documented By: JUANITO Albuterol Sulfate (Albuterol Sulfate (0.083%) 2.5 Mg/3 Ml Vial.Neb) 2.5 mg INHALE ONCE PRN PRN Reason: Wheezing Atorvastatin Calcium (Atorvastatin Calcium 10 Mg Tablet) 10 mg PO DAILY [facility] Last Admin: 06/30/22 08:14 Dose: 10 mg Documented By: JUANITO Docusate Sodium (Docusate Sodium 100 Mg Capsule) 100 mg PO DAILY PRN PRN Reason: Constipation Enoxaparin Sodium (Enoxaparin Sodium 40 Mg/0.4 Ml Syringe) 40 mg SUBCUT Q24H [facility] Last Admin: 06/30/22 01:38 Dose: 40 mg Documented By: JOHNATHAN Hydrocortisone (Hydrocortisone 1 % Cream 28.35 Gm Tube) 1 appl TOPICAL BID [facility]; Protocol Last Admin: 06/30/22 08:15 Dose: 1 appl Documented By: JUANITO Hydromorphone HCl (Hydromorphone Hcl 0.5 Mg/0.5 Ml Syringe) 0.5 mg IVPUSH Q3H PRN; Protocol PRN Reason: Pain, Severe (Pain Scale 7-10) Last Admin: 06/27/22 22:57 Dose: 0.5 mg Documented By: PELON Ampicillin Sodium/Sulbactam (Sodium 3 gm/ Sodium Chloride) 100 mls @ 200 mls/hr IV Q8H [facility] Last Admin: 06/30/22 09:48 Dose: 100 mls/hr Documented By: JUANITO Lisinopril (Lisinopril 2.5 Mg Tablet) 2.5 mg PO DAILY [facility]; Protocol Last Admin: 06/30/22 08:14 Dose: 2.5 mg Documented By: JUANITO Ondansetron HCl (Ondansetron Hcl 4 Mg/2 Ml Vial) 4 mg IVPUSH Q8H PRN PRN Reason: Nausea and Vomiting Ondansetron HCl (Ondansetron Hcl 4 Mg/2 Ml Vial) 4 mg IVPUSH ONCE PRN PRN Reason: Nausea and Vomiting Sodium Chloride (0.9 % Sodium Chloride Flush 3 Ml Syringe) 3 ml IVFLUSH QSHIFT [facility] Last Admin: 06/30/22 08:14 Dose: 3 ml Documented By: JUANITO Labs 06/30/22 05:20 06/30/22 05:20 Labs: Laboratory Results - last 24 hr 06/30/22 06/30/22 05:20 05:20 MCV 93.1 MCH 31.0 MCHC 33.3 RDW 13.3 Plt Count 337 MPV 8.8 L Absolute Nucleated RBC 0.000 Nucleated RBC % (auto) 0.0 Anion Gap 12 Estim Creat Clear Calc 115.2 Estimated GFR > 60 Fasting Glucose 80 Calcium 7.9 L Microbiology Microbiology Results: Microbiology 06/24/22 23:09 Blood Culture - Final Blood - Venous No growth after 5 days. 06/24/22 23:09 Blood Culture - Final Blood - Venous No growth after 5 days. Assessment and Plan (1) Cancer of left colon: Status: Acute (2) Aspiration pneumonia: Status: Acute (3) Partial small bowel obstruction: Status: Acute Plan 86-year-old male with past medical history of colon cancer recently diagnosed April 2023, presented with complaints of abdominal pain nausea vomiting diarrhea found to have partially obstructing proximal descending colon mass acute partial large-bowel obstruction 2/2 colon cancer POD3 - left elvie-colectomy had loose BM pain somewhat controlled, tolerating solids Sepsis on admission 2/2 aspiration pneumonia Continue Unasyn negative blood cultures hypertension continue lisinopril hyperlipidemia continue statin DVT prophylaxis: Lovenox reason for continued hospitalization: awaiting po tolerance and pain tolerance Time Spent With Patient Time: Total time managing care of this patient today ____ minutes. Quality Stroke Does the patient have a stroke diagnosis?: No VTE Prior VTE?: No VTE Risk Level:: Medical - moderate - high VTE Device Contraindication: Treatment Not Indicated VTE Drug Contraindication: N/A - Med Ordered
[2022-06-30 12:00] VITALS: BP 129/63; PULSE 67; RESP 18; TEMP 36.8; O2SAT 98
[2022-06-30 15:55] VITALS: BP 113/58; PULSE 70; RESP 18; TEMP 36.2; O2SAT 98
--- NOTE | 2022-06-30 18:09 | PC.NURSE ---
Pt is alert and oriented x4. C/O 3-5?10 ABD pain especially after meals. PRN tylenol, given wioth good effect. Day post. IMidline Incision is clean , dry and intact.
[2022-06-30 19:36] VITALS: BP 118/57; PULSE 65; RESP 18; TEMP 36.3; O2SAT 99
[2022-06-30 23:39] VITALS: BP 138/63; PULSE 65; RESP 16; TEMP 36.1; O2SAT 98
[2022-07-01] MEDS: Enoxaparin Sodium 40 MG/0.4 ML SYRINGE SUBCUT (01:32)
[2022-07-01] MEDS: Ampicillin Sodium/Sulbactam Na 3 GM in 0.9 % Sodium Chloride 100 ML IV ×2 (01:33→10:25)
[2022-07-01 04:00] VITALS: RESP 18
[2022-07-01 07:35] VITALS: BP 139/66; PULSE 65; RESP 18; TEMP 36.5; O2SAT 93
[2022-07-01] MEDS: lisinopriL 2.5 MG TABLET PO (08:12)
[2022-07-01] MEDS: Acetaminophen 325 MG TABLET 650 MG PO ×3 (08:12→22:13)
[2022-07-01] MEDS: Atorvastatin Calcium 10 MG TABLET PO (08:12)
[2022-07-01] MEDS: 0.9 % Sodium Chloride Flush 3 ML SYRINGE IVFLUSH (08:12)
[2022-07-01] MEDS: Hydrocortisone 1 % Cream 28.35 GM TUBE 1 APPL TOPICAL ×2 (08:14→21:06)
--- NOTE | 2022-07-01 08:45 | P.PNIM_ITS ---
Subjective Subjective Date of Service: 07/01/22 Interval History: cc: abd pain interval history:improving had bm Physical Exam Vital Signs: Vital Signs: Last Vital Signs Temp 97.7 F 07/01/22 07:35 Pulse 65 07/01/22 07:35 Resp 18 07/01/22 07:35 BP 139/66 07/01/22 07:35 Pulse Ox 93 07/01/22 07:35 O2 Del Method 07/01/22 07:35 O2 Flow Rate 2 06/28/22 03:06 BMI result Body Mass Index 24.5 Const: General: comfortable, no acute distress and alert Orientation/consciousness: patient oriented x3 Resp: Effort & Inspection: normal respiratory effort GI: Inspection: No distended and Yes incision (clean, no erythema) Palpation (GI): Soft to palpation, Tenderness to palpation present (GI) (mild, incisional), no guarding and not rigid Skin: General skin exam: no rashes or lesions noted Neuro: General: patient oriented x3 Objective Data Active Medications Acetaminophen (Acetaminophen 325 Mg Tablet) 650 mg PO Q4H PRN PRN Reason: Pain, Mild (Pain Scale 1-3) Last Admin: 07/01/22 08:12 Dose: 650 mg Documented By: JENNY Albuterol Sulfate (Albuterol Sulfate (0.083%) 2.5 Mg/3 Ml Vial.Neb) 2.5 mg INHALE ONCE PRN PRN Reason: Wheezing Atorvastatin Calcium (Atorvastatin Calcium 10 Mg Tablet) 10 mg PO DAILY [facility] Last Admin: 07/01/22 08:12 Dose: 10 mg Documented By: JENNY Docusate Sodium (Docusate Sodium 100 Mg Capsule) 100 mg PO DAILY PRN PRN Reason: Constipation Enoxaparin Sodium (Enoxaparin Sodium 40 Mg/0.4 Ml Syringe) 40 mg SUBCUT Q24H [facility] Last Admin: 07/01/22 01:32 Dose: 40 mg Documented By: JOHNATHAN Hydrocortisone (Hydrocortisone 1 % Cream 28.35 Gm Tube) 1 appl TOPICAL BID [facility]; Protocol Last Admin: 07/01/22 08:14 Dose: 1 appl Documented By: JENNY Hydromorphone HCl (Hydromorphone Hcl 0.5 Mg/0.5 Ml Syringe) 0.5 mg IVPUSH Q3H PRN; Protocol PRN Reason: Pain, Severe (Pain Scale 7-10) Last Admin: 06/27/22 22:57 Dose: 0.5 mg Documented By: PELON Ampicillin Sodium/Sulbactam (Sodium 3 gm/ Sodium Chloride) 100 mls @ 200 mls/hr IV Q8H [facility] Last Infusion: 07/01/22 02:06 Dose: 0 mls/hr Documented By: JOHNATHAN Lisinopril (Lisinopril 2.5 Mg Tablet) 2.5 mg PO DAILY [facility]; Protocol Last Admin: 07/01/22 08:12 Dose: 2.5 mg Documented By: JENNY Ondansetron HCl (Ondansetron Hcl 4 Mg/2 Ml Vial) 4 mg IVPUSH Q8H PRN PRN Reason: Nausea and Vomiting Ondansetron HCl (Ondansetron Hcl 4 Mg/2 Ml Vial) 4 mg IVPUSH ONCE PRN PRN Reason: Nausea and Vomiting Sodium Chloride (0.9 % Sodium Chloride Flush 3 Ml Syringe) 3 ml IVFLUSH QSHIFT [facility] Last Admin: 07/01/22 08:12 Dose: 3 ml Documented By: JENNY Labs 06/30/22 05:20 06/30/22 05:20 Assessment and Plan (1) Cancer of left colon: Status: Acute (2) Aspiration pneumonia: Status: Acute (3) Partial small bowel obstruction: Status: Acute Plan 86-year-old male with past medical history of colon cancer recently diagnosed April 2023, presented with complaints of abdominal pain nausea vomiting diarrhea found to have partially obstructing proximal descending colon mass acute partial large-bowel obstruction 2/2 colon cancer POD4 - left elvie-colectomy passing stool pain somewhat controlled, tolerating solids Sepsis on admission 2/2 aspiration pneumonia Continue Unasyn negative blood cultures hypertension continue lisinopril hyperlipidemia continue statin DVT prophylaxis: Lovenox reason for continued hospitalization: awaiting po tolerance and pain tolerance Time Spent With Patient Time: Total time managing care of this patient today ____ minutes. Quality Stroke Does the patient have a stroke diagnosis?: No VTE Prior VTE?: No VTE Risk Level:: Medical - moderate - high VTE Device Contraindication: Treatment Not Indicated VTE Drug Contraindication: N/A - Med Ordered
--- NOTE | 2022-07-01 08:57 | P.PNGS_ITS ---
Subjective Subjective Date of Service: 07/01/22 Interval history: Still remains anxious about discharge to home and being home alone. He is ambulating in halls. Pain is controlled. He is passing flatus but no BM since the other day. Physical Exam Vital Signs: Vital Signs: Last Vital Signs Temp 97.7 F 07/01/22 07:35 Pulse 65 07/01/22 07:35 Resp 18 07/01/22 07:35 BP 139/66 07/01/22 07:35 Pulse Ox 93 07/01/22 07:35 O2 Del Method 07/01/22 07:35 O2 Flow Rate 2 06/28/22 03:06 BMI result Body Mass Index 24.5 Const: General: comfortable, no acute distress, well developed and alert Orientation/consciousness: patient oriented x3 Resp: Effort & Inspection: normal respiratory effort GI: Inspection: No distended and Yes incision (clean) Palpation (GI): Soft to palpation, Tenderness to palpation present (GI) (mild, incisional), no guarding and not rigid Percussion: Yes normal to percussion Skin: General skin exam: no rashes or lesions noted Neuro: General: patient oriented x3 Extrem: General: Yes no clubbing, cyanosis or edema Objective Data Active Medications Acetaminophen (Acetaminophen 325 Mg Tablet) 650 mg PO Q4H PRN PRN Reason: Pain, Mild (Pain Scale 1-3) Last Admin: 07/01/22 08:12 Dose: 650 mg Documented By: JENNY Albuterol Sulfate (Albuterol Sulfate (0.083%) 2.5 Mg/3 Ml Vial.Neb) 2.5 mg INHALE ONCE PRN PRN Reason: Wheezing Atorvastatin Calcium (Atorvastatin Calcium 10 Mg Tablet) 10 mg PO DAILY [facility] Last Admin: 07/01/22 08:12 Dose: 10 mg Documented By: JENNY Docusate Sodium (Docusate Sodium 100 Mg Capsule) 100 mg PO DAILY PRN PRN Reason: Constipation Enoxaparin Sodium (Enoxaparin Sodium 40 Mg/0.4 Ml Syringe) 40 mg SUBCUT Q24H [facility] Last Admin: 07/01/22 01:32 Dose: 40 mg Documented By: JOHNATHAN Hydrocortisone (Hydrocortisone 1 % Cream 28.35 Gm Tube) 1 appl TOPICAL BID [facility]; Protocol Last Admin: 07/01/22 08:14 Dose: 1 appl Documented By: JENNY Hydromorphone HCl (Hydromorphone Hcl 0.5 Mg/0.5 Ml Syringe) 0.5 mg IVPUSH Q3H PRN; Protocol PRN Reason: Pain, Severe (Pain Scale 7-10) Last Admin: 06/27/22 22:57 Dose: 0.5 mg Documented By: PELON Ampicillin Sodium/Sulbactam (Sodium 3 gm/ Sodium Chloride) 100 mls @ 200 mls/hr IV Q8H [facility] Last Infusion: 07/01/22 02:06 Dose: 0 mls/hr Documented By: JOHNATHAN Lisinopril (Lisinopril 2.5 Mg Tablet) 2.5 mg PO DAILY [facility]; Protocol Last Admin: 07/01/22 08:12 Dose: 2.5 mg Documented By: JENNY Ondansetron HCl (Ondansetron Hcl 4 Mg/2 Ml Vial) 4 mg IVPUSH Q8H PRN PRN Reason: Nausea and Vomiting Ondansetron HCl (Ondansetron Hcl 4 Mg/2 Ml Vial) 4 mg IVPUSH ONCE PRN PRN Reason: Nausea and Vomiting Sodium Chloride (0.9 % Sodium Chloride Flush 3 Ml Syringe) 3 ml IVFLUSH QSHIFT [facility] Last Admin: 07/01/22 08:12 Dose: 3 ml Documented By: JENNY Labs 06/30/22 05:20 06/30/22 05:20 Procedures Date of Service Date of Service: 07/01/22 Progress Note: A&P Assessment and plan (1) Cancer of left colon: Status: Acute Plan POD #3 following hand assisted laparoscopic left colectomy for nearly obstructing left colon cancer. Patient continues to do well post op and tolerating a solid diet. Abd exam remains benign, incision is clean. Continue pain control, ambulation of halls. Pathology is still pending. Will begin bowel regimen. Plan for discharge to home tomorrow. Time Spent With Patient Time: Total time managing care of this patient today ____ minutes. Quality Stroke Does the patient have a stroke diagnosis?: No VTE Prior VTE?: No VTE Risk Level:: Medical - moderate - high VTE Device Contraindication: Treatment Not Indicated VTE Drug Contraindication: N/A - Med Ordered
--- NOTE | 2022-07-01 10:39 | MHC.CM.PN ---
EMR REVIEWED, PER HOSPITALIST ANTIC PT WILL BE CLEARED TO D/C HOME TOMORROW 07/02, DO NOT ANTIC W/NEED HOME SERVICES AND PT HAS SON FOR TRANSPORT, CM WILL CONT TO FOLLOW D/C NEEDS.
[2022-07-01 11:24] VITALS: BP 112/55; PULSE 66; RESP 17; TEMP 36.7; O2SAT 96
[2022-07-01] MEDS: Amoxicillin/Potassium Clav 875 MG TABLET PO ×2 (11:52→23:00)
[2022-07-01 15:00] VITALS: BP 112/57; PULSE 68; RESP 18; TEMP 37; O2SAT 97
--- NOTE | 2022-07-01 16:55 | PC.NURSE ---
Pt states he had 3 soft brown stools today. Refused colace
[2022-07-01 19:08] VITALS: BP 120/57; PULSE 69; RESP 18; TEMP 36.7; O2SAT 98
[2022-07-02] MEDS: Enoxaparin Sodium 40 MG/0.4 ML SYRINGE SUBCUT (01:09)
[2022-07-02 03:29] VITALS: BP 139/65; PULSE 67; RESP 16; TEMP 36.5; O2SAT 97
--- NOTE | 2022-07-02 06:14 | PC.NURSE ---
Assumed care of patient at approx. 1845. Patient alert, oriented *4, appropriate to situation and surroundings. Recvd PRN tylenol for c/o abdominal pain with positive effect. Patient experienced liquid stools * 2, appetite is adequate. Negative for abd. distention. Incision with ernesto are TIMOTHY, lap sites [employer]; no s/sx of erythema, tenderness, or drainage. OOB ambulating, independent.
[2022-07-02 07:44] VITALS: BP 129/60; PULSE 65; RESP 16; TEMP 36.9; O2SAT 97
[2022-07-02] MEDS: Docusate Sodium 100 MG CAPSULE PO (07:50)
[2022-07-02] MEDS: lisinopriL 2.5 MG TABLET PO (07:50)
[2022-07-02] MEDS: Hydrocortisone 1 % Cream 28.35 GM TUBE 1 APPL TOPICAL (07:51)
[2022-07-02] MEDS: Atorvastatin Calcium 10 MG TABLET PO (07:52)
--- NOTE | 2022-07-02 08:33 | PM.DS ---
DS: Providers Provider Date of Service: 07/02/22 Date of admission: 06/25/22 01:40 Primary care physician: Keron Calero MD Consults: 06/25/22 06:55 Consult to General Surgery Routine Consulting Provider: Fuad Rizvi Reason for consultation: SBO Has provider been notified: No DS: Diagnosis Discharge Diagnosis (1) Cancer of left colon: Status: Inactive DS: Summary Hospital Course Hospital Course: from initial hpi: Chief Complaint:? abdominal distension ?86-year-old male with past medical history of hypertension, hyperlipidemia, recently diagnosed colon cancer presents to the hospital with complaints of abdominal bloating, as well as nausea vomiting and diarrhea.? Patient reports that ever since being diagnosed with colon cancer in April he has had bloating in the abdomen and chronic? intermittent cramping pain. he is planned for surgical intervention on the following week for his colon cancer and has been on a liquid diet for that.? Patient reports that his symptoms of diarrhea nausea vomiting started a 22:00 the night before, and he felt his abdomen become more firm, and had multiple episodes of vomiting.? Patient denies any shortness of breath, no cough, no fever or chills, no urinary symptoms and no lower extremity edema.? He reports that ever since coming to the ED has not had any further episodes of nausea vomiting or diarrhea. ? On arrival to the ED patient hemodynamically stable with a fever of 102.3, heart rate of 105, blood pressure stable Labs are significant for WBC count of? 10.5, hemoglobin of 12.6, hematocrit 38.5, lactic acid of 3.3 improved after IV fluids, labs otherwise unremarkable ?abdomen pelvic CT shows redemonstration of area of circumferential colonic wall thickening concerning for malignancy, partial small-bowel obstruction, and right middle lobe consolidation which can represent pneumonia or aspiration hospital course: Patient was admitted for acute partial large bowel obstruction secondary to colon cancer. He underwent left hemicolectomy. Postoperative period was unremarkable. Patient pain became controlled and was tolerating solids with positive bowel movements. patient was also admitted with sepsis due to aspiration pneumonia. He was treated with course of Unasyn and sepsis resolved. For hypertension is continue lisinopril. Five lipidemia his continue on statin. Patient is feeling better and will be discharged Time Spent with Patient Time attestation: Total time managing care of this patient today ____ minutes. Discharge coordination time: Greater than 30 minutes Quality: Safe Use of Opioids Does Pt have an Active Cancer Diagnosis on the Problem List?: Yes Opioid Measure Date for [facility] Report: 06/02/22 Opioid Measure Time for [facility] Report: 08:34 Quality: Stroke Does the patient have a stroke diagnosis?: No Physical Exam Vital Signs: Vital Signs: Last Vital Signs Temp 98.5 F 07/02/22 07:44 Pulse 65 07/02/22 07:44 Resp 16 07/02/22 07:44 BP 129/60 07/02/22 07:44 Pulse Ox 97 07/02/22 07:44 O2 Del Method 07/02/22 07:44 O2 Flow Rate 2 06/28/22 03:06 BMI result Body Mass Index 24.5 Const: General: comfortable, no acute distress, well developed and alert Orientation/consciousness: patient oriented x3 Resp: Effort & Inspection: normal respiratory effort GI: Inspection: No distended and Yes incision (clean) Palpation (GI): Soft to palpation, Tenderness to palpation present (GI) (mild, incisional), no guarding and not rigid Percussion: Yes normal to percussion Skin: General skin exam: no rashes or lesions noted Neuro: General: patient oriented x3 Extrem: General: Yes no clubbing, cyanosis or edema DS: Data Data Completed and Pending Pending studies at discharge: Pending at discharge 06/27/22 13:14 Surgical [PTH] Stat Discharge Plan Discharge Anticipated Discharge Date/Time: 07/02/22 08:32 Patient Disposition: Home, Self-Care Discharge Diagnosis: Left colon adenocarcinoma, nearly obstructing Referrals: Keron Calero MD [Primary Care Provider] - 1 Week Fuad Rizvi MD [Physician] - 1 Week Discharge Medications: New oxycodone 5 mg tablet 5 mg PO Q4H PRN (Reason: pain (scale score 7-10)) Qty: 20 0RF Rx Instructions: Partial Fill upon patient request. Continued famotidine 40 mg tablet 40 mg PO QPM simvastatin 20 mg tablet 20 mg PO DAILY lisinopril 2.5 mg tablet 2.5 mg PO DAILY cholecalciferol (vitamin D3) 50 mcg (2,000 unit) capsule 50 mcg PO DAILY ascorbate calcium (vitamin C) 500 mg tablet 500 mg PO DAILY Saccharomyces boulardii [Daily Probiotic (S. boulardii)] 250 mg capsule 250 mg PO BID Centrum Silver Men 300-600-300 mcg tablet 1 tab PO DAILY Discharge Orders: Discharge Order (Routine); Ordered 07/02/22 Ordered By: Shaquille Newton Diet: Advance to usual diet Activity on Discharge: No heavy lifting Stand Alone Forms: Patient Portal Discharge page Activity Restrictions/Additional Instructions: If the incision area is tender, you may apply an ice pack for short intervals (No more than 20 minutes on, followed by at least 20 minutes off). Do not apply heat. Do not use creams, lotions, or topical antibiotics unless instructed to do so by your surgeon. These can cause infection or allergic reaction. Ok to shower. You have ernesto closing your incision and these will be removed approximately 10-14 days after surgery. NO HEAVY LIFTING (>10lbs) or strenuous activity. Follow up in office. ([phone]) Call Your Doctor If: -Your temperature exceeds 101.5? F -You experience excessive pain or swelling -You have an unexpected reaction to medication -You have excessive bleeding -You experience continued vomiting/nausea -Your incision begins to separate -Your incision shows signs of infection such as increased redness, swelling, excessive pain, drainage (light blood or clear fluid is normal) or heat Care Plan Goals: Return to normal diet and activity Health Concerns: Obstructing colon cancer left colon Plan of Treatment: Hand assisted laparoscopic left colectomy Assessment: Left colon adenocarcinoma with near obstruction Patient Instructions: Colectomy Diet (DC)
--- NOTE | 2022-07-02 08:56 | MHC.CM.PN ---
PT WILL DC HOME TODAY WITH NO SERVICES FAMILY TO TRANSPORT
--- NOTE | 2022-07-02 09:26 | PM.PNGS ---
Subjective Subjective Date of Service: 07/02/22 Patient reports: no new complaints, feels better, tolerating a regular diet, flatus and bowel movement Interval history: Patient is seen in coverage for Dr. Rizvi. The patient reports that he is doing well, tolerated his diet and able to move about such that he feels ready for discharge. He denies any chest pain, difficulty breathing or shortness of breath. He has no new complaints. Physical Exam Vital Signs: Vital Signs: Last Vital Signs Temp 98.5 F 07/02/22 07:44 Pulse 65 07/02/22 07:44 Resp 16 07/02/22 07:44 BP 129/60 07/02/22 07:44 Pulse Ox 97 07/02/22 07:44 O2 Del Method 07/02/22 07:44 O2 Flow Rate 2 06/28/22 03:06 BMI result Body Mass Index 24.5 On exam he is nontoxic Stanley are intact and there is no evidence of drainage, redness or infection in his incision Abdomen is soft and nontender with no peritoneal sign Objective Data Active Medications Acetaminophen (Acetaminophen 325 Mg Tablet) 650 mg PO Q4H PRN PRN Reason: Pain, Mild (Pain Scale 1-3) Last Admin: 07/01/22 22:13 Dose: 650 mg Documented By: RONAL Albuterol Sulfate (Albuterol Sulfate (0.083%) 2.5 Mg/3 Ml Vial.Neb) 2.5 mg INHALE ONCE PRN PRN Reason: Wheezing Amoxicillin/Clavulanate Potassium (Amoxicillin/Potassium Clav 875 Mg Tablet) 875 mg PO Q12H [facility] Last Admin: 07/01/22 23:00 Dose: 875 mg Documented By: RONAL Atorvastatin Calcium (Atorvastatin Calcium 10 Mg Tablet) 10 mg PO DAILY [facility] Last Admin: 07/02/22 07:52 Dose: 10 mg Documented By: NANCY Docusate Sodium (Docusate Sodium 100 Mg Capsule) 100 mg PO BID [facility] Last Admin: 07/01/22 20:45 Dose: Not Given Documented By: PELON Non-Admin Reason: Patient Refused Enoxaparin Sodium (Enoxaparin Sodium 40 Mg/0.4 Ml Syringe) 40 mg SUBCUT Q24H [facility] Last Admin: 07/02/22 01:09 Dose: 40 mg Documented By: PELON Hydrocortisone (Hydrocortisone 1 % Cream 28.35 Gm Tube) 1 appl TOPICAL BID [facility]; Protocol Last Admin: 07/02/22 07:51 Dose: 1 appl Documented By: NANCY Hydromorphone HCl (Hydromorphone Hcl 0.5 Mg/0.5 Ml Syringe) 0.5 mg IVPUSH Q3H PRN; Protocol PRN Reason: Pain, Severe (Pain Scale 7-10) Last Admin: 06/27/22 22:57 Dose: 0.5 mg Documented By: PELON Lisinopril (Lisinopril 2.5 Mg Tablet) 2.5 mg PO DAILY [facility]; Protocol Last Admin: 07/02/22 07:50 Dose: 2.5 mg Documented By: NANCY Ondansetron HCl (Ondansetron Hcl 4 Mg/2 Ml Vial) 4 mg IVPUSH Q8H PRN PRN Reason: Nausea and Vomiting Ondansetron HCl (Ondansetron Hcl 4 Mg/2 Ml Vial) 4 mg IVPUSH ONCE PRN PRN Reason: Nausea and Vomiting Sodium Chloride (0.9 % Sodium Chloride Flush 3 Ml Syringe) 3 ml IVFLUSH QSHIFT [facility] Last Admin: 07/02/22 07:37 Dose: Not Given Documented By: NANCY Non-Admin Reason: No Access Labs 06/30/22 05:20 06/30/22 05:20 Procedures Date of Service Date of Service: 07/02/22 Progress Note: A&P Assessment and plan (1) Cancer of left colon: Status: Acute Plan Instructions regarding diet and activity were reviewed and apparently understood. Patient's questions seemed to be answered. Surgically stable for discharge Time Spent With Patient Time: Total time managing care of this patient today ____ minutes. Quality Stroke Does the patient have a stroke diagnosis?: No VTE Prior VTE?: No VTE Risk Level:: Medical - moderate - high VTE Device Contraindication: Treatment Not Indicated VTE Drug Contraindication: N/A - Med Ordered
[2022-07-02] MEDS: Amoxicillin/Potassium Clav 875 MG TABLET PO (10:52)
== END 2022-07-02 11:31 | disposition home or self-care (01) | DRG 853 ==
LOC: HO.ED 06-25 01:39 → HO.EDOVER 06-25 01:45 → HO.S3 06-25 02:59
PROVIDERS: Student in an Organized Health Care Education/Training Program; Surgery; Admitting Provider Internal Medicine; Emergency Provider Emergency Medicine; PCP Family Medicine; Visit Provider Internal Medicine
PROC: 0DTE0ZZ Resection of Large Intestine, Open Approach (ICD-10-PCS; principal; 2022-06-27 12:00)
DX: A41.9 Sepsis, unspecified organism (principal); J69.0 Pneumonitis due to inhalation of food and vomit; C18.9 Malignant neoplasm of colon, unspecified; E87.5 Hyperkalemia; E78.5 Hyperlipidemia, unspecified; I10 Essential (primary) hypertension; Z20.822 Contact with and (suspected) exposure to COVID-19; E86.0 Dehydration; Z87.891 Personal history of nicotine dependence; Z79.899 Other long term (current) drug therapy
CPT/HCPCS: 36415; 71045; 74018; 74176; 80048; 80076; 81001; 81210; 82378; 82947; 83605; 83690; 83735; 84484; 85025; 85027; 85610; 86850; 86900; 86901; 87040; 87635; 88307; 88329; 88341; 88342; 96361; 96374; 96375; 99285; C1758; C9088; J0131; J0295; J0456; J0696; J1100; J1170; J1650; J2405; J3010

== ENCOUNTER → 2022-07-08 08:38 | Outpatient (BNVA) | payer MEDICARE, SELFPAY | PROVIDERS: PCP Family Medicine; Visit Provider Surgery | DX: Z13.89 Encounter for screening for other disorder (principal) ==

== ENCOUNTER → 2022-08-05 09:05 | Outpatient (BNVA) | payer MEDICARE, SELFPAY | PROVIDERS: PCP Family Medicine; Referring Provider Family Medicine; Visit Provider Surgery | DX: Z13.89 Encounter for screening for other disorder (principal) | CPT/HCPCS: 99212 ==

== ENCOUNTER 2022-08-15 11:02 | Outpatient (REF) | payer MEDICARE, SELFPAY ==
[2022-08-15 11:15] LABS: MANUAL DIFF FLAG NO
[2022-08-15 12:07] LABS: Basophils Percent Auto 0.3 % (0-2); Eosinophils Absolute Auto 0.2 X10*3/uL (0.0-0.4); Eosinophils Percent Auto 2.5 % (0-4); Hematocrit 40.2 % (42.0-52.0); Hemoglobin 13.1 g/dl (14.0-18.0); Imm Gran Abs Auto 0.02 X10*3/uL (0.00-0.03); Imm Gran Pct Auto 0.3 % (0.0-0.4); Lymphocytes Absolute Auto 2.6 X10*3/uL (1.2-4.9); Lymphocytes Percent Auto 38.2 % (20-40); Mean Corpuscular HGB Conc 32.6 g/dl (31.0-36.0); Mean Corpuscular Hemoglobin 31.6 pg (27.0-33.0); Mean Corpuscular Volume 96.9 fL (80.0-98.0); Mean Platelet Volume 8.8 fL (9.4-12.4); Monocytes Absolute Auto 0.7 X10*3/uL (0.1-1.2); Monocytes Percent Auto 10.6 % (2-11); Neutrophils Absolute Auto 3.2 x10*3/uL (2.0-8.3); Neutrophils Percent Auto 48.1 % (45-73); Platelet Count 280 X10*3/uL (160-400); Red Blood Count 4.15 X10*6/uL (4.60-5.80); Red Cell Distribution Width 14.1 % (11.0-16.0); White Blood Count 6.7 X10*3/uL (4.8-10.8)
[2022-08-15 12:43] LABS: Anion Gap 11 (12-20); Blood Urea Nitrogen 20 mg/dL (9-16); Carbon Dioxide 29 mmol/L (22-29); Chloride 105 mmol/L (96-108); Estimated Glomerular Filt Rate > 60; Potassium 4.9 mmol/L (3.3-5.1); Sodium 140 mmol/L (135-145)
== END 2022-08-15 11:03 | disposition home or self-care (01) ==
LOC: HO.LAB 11:02
PROVIDERS: PCP Family Medicine; Visit Provider Family Medicine
DX: D64.9 Anemia, unspecified (principal); I10 Essential (primary) hypertension
CPT/HCPCS: 36415; 80051; 82565; 84520; 85025

== ENCOUNTER 2023-01-02 10:50 | Outpatient (REF) | payer MEDICARE, SELFPAY ==
[2023-01-02 13:25] LABS: MANUAL DIFF FLAG NO
[2023-01-02 13:49] LABS: Basophils Percent Auto 0.7 % (0-2); Eosinophils Absolute Auto 0.3 X10*3/uL (0.0-0.4); Eosinophils Percent Auto 4.4 % (0-4); Hematocrit 40.4 % (42.0-52.0); Hemoglobin 13.3 g/dl (14.0-18.0); Imm Gran Abs Auto 0.01 X10*3/uL (0.00-0.03); Imm Gran Pct Auto 0.2 % (0.0-0.4); Lymphocytes Absolute Auto 2.2 X10*3/uL (1.2-4.9); Lymphocytes Percent Auto 36.8 % (20-40); Mean Corpuscular HGB Conc 32.9 g/dl (31.0-36.0); Mean Corpuscular Volume 100.2 fL (80.0-98.0); Mean Platelet Volume 9.7 fL (9.4-12.4); Monocytes Absolute Auto 0.5 X10*3/uL (0.1-1.2); Neutrophils Absolute Auto 2.9 x10*3/uL (2.0-8.3); Neutrophils Percent Auto 48.9 % (45-73); Platelet Count 247 X10*3/uL (160-400); Red Blood Count 4.03 X10*6/uL (4.60-5.80); White Blood Count 5.9 X10*3/uL (4.8-10.8)
[2023-01-02 14:09] LABS: Alanine Aminotransferase 19 U/L (0-40); Alkaline Phosphatase 64 U/L (39-117); Anion Gap 9 (12-20); Aspartate Amino Transferase 25 U/L (5-37); Bilirubin Total 0.6 mg/dL (0.0-1.0); Blood Urea Nitrogen 16 mg/dL (9-16); Calcium 9.5 mg/dL (8.4-10.2); Carbon Dioxide 30 mmol/L (22-29); Chloride 108 mmol/L (96-108); Estimated Glomerular Filt Rate > 60; Glucose Random 94 mg/dL (60-115); Potassium 4.5 mmol/L (3.3-5.1); Sodium 142 mmol/L (135-145); Total Protein 7.1 g/dL (6.5-8.0)
[2023-01-02 14:30] LABS: Carcinoembryonic Antigen < 1.73 ng/mL
== END 2023-01-02 10:51 | disposition home or self-care (01) ==
LOC: HO.10HDL 10:50
PROVIDERS: Visit Provider Family Medicine
DX: G62.9 Polyneuropathy, unspecified (principal); C18.9 Malignant neoplasm of colon, unspecified; I10 Essential (primary) hypertension; E78.00 Pure hypercholesterolemia, unspecified; Z79.899 Other long term (current) drug therapy
CPT/HCPCS: 36415; 80053; 82378; 82550; 85025

== ENCOUNTER 2023-06-27 11:28 | Outpatient (REF) | payer MEDICARE, SELFPAY ==
--- NOTE | ~2023-06-27 | XR_ITS ---
EXAMINATION: XR KNEE, LEFT CLINICAL INFORMATION: Pain. COMPARISON: None available. TECHNIQUE: AP, lateral, tunnel, and sunrise views of the left knee. FINDINGS: No fracture or joint effusion. Alignment is anatomic. Joint spaces are maintained. There is a small enthesophyte at the upper pole of the patella at the quadriceps tendon insertion. No abnormal soft tissue calcification. XR/XR knee LT 4V IMPRESSION: Unremarkable left knee.
[2023-06-27 13:03] LABS: Alanine Aminotransferase 23 U/L (0-40); Anion Gap 11 (12-20); Aspartate Amino Transferase 30 U/L (5-37); Blood Urea Nitrogen 20 mg/dL (9-16); Carbon Dioxide 28 mmol/L (22-29); Chloride 105 mmol/L (96-108); Estimated Glomerular Filt Rate > 60; Potassium 4.5 mmol/L (3.3-5.1); Sodium 139 mmol/L (135-145)
== END 2023-06-27 11:29 | disposition home or self-care (01) ==
LOC: HO.LAB 11:28
PROVIDERS: PCP Family Medicine; Visit Provider Family Medicine
DX: M25.562 Pain in left knee (principal); I10 Essential (primary) hypertension; E78.00 Pure hypercholesterolemia, unspecified; Z79.899 Other long term (current) drug therapy
CPT/HCPCS: 36415; 73564; 80051; 82550; 82565; 84450; 84460; 84520

== ENCOUNTER 2023-07-27 09:37 | Outpatient (REF) | payer MEDICARE, SELFPAY ==
--- NOTE | ~2023-07-27 | XR_ITS ---
EXAMINATION: XR KNEE AP STANDING, BILATERAL CLINICAL INFORMATION: Pain in knee. COMPARISON: Left knee 06/27/2023 TECHNIQUE: AP bilateral standing view of the knees was obtained. FINDINGS: AP bilateral knee standing reveals loss of medial compartment joint space. The lateral compartment joint space is preserved. No visible acute fracture, dislocation or loose body seen. No bony erosive changes. The soft tissues are normal. XR/XR knee standing BI IMPRESSION: Mild degenerative changes medial compartment both knees. No visible acute fracture, dislocation or subluxation seen.
== END 2023-07-27 09:38 | disposition home or self-care (01) ==
LOC: HO.HOSX 09:37
PROVIDERS: Visit Provider Physician Assistant
DX: M25.562 Pain in left knee (principal); M79.18 Myalgia, other site
CPT/HCPCS: 73565; 99212

== ENCOUNTER 2023-07-27 10:16 | Outpatient (AMB) | payer MEDICARE, SELFPAY ==
[2023-07-27 10:26] VITALS: BMI 25.1
--- NOTE | 2023-07-27 10:26 | MHC.OFFVIS ---
Intake Vital Signs 07/27/23 10:26 Height 5 ft 11 in Weight 180 lb BMI 25.1 Intake Visit Reasons: Newprob- LT Knee pain Intake Note: Misha is a 87 yr old male who presents today for an evaluation of his left knee pain. Patient reports ongoing pain for a couple of months. No hx of NSAIDs/Tylenol. Patient states that his pain is worse when kneeling down or bending. His pain is more focused on the calf. Allergies No Known Allergies Allergy (Verified 07/27/23 10:26) HPI Newprob- LT Knee pain HPI Details 87-year-old male who presents in the office today for an evaluation of left knee pain. The patient reports ongoing pain in the left knee for a couple of months. He claims to have an increase in pain with tying his shoe, kneeling and bending. He states he is able to ambulate stairs and walk with out pain. He states his pain is more focused in the chambers. He describes it as sharp and shooting. He states he feels clicking when he walks. He denies numbness or tingling. He denies a history of NSAIDs/Tylenol use. 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 Review of Systems Const All systems reviewed & are unremarkable except as noted in HPI and below Physical Exam Vital Signs: BMI result Body Mass Index 25.1 Const General: cooperative and no acute distress Orientation/consciousness: patient oriented x3 Resp Effort & Inspection: normal respiratory effort and able to speak in complete sentences Cardio Peripheral pulses: Peripheral pulses 2+ throughout Skin General skin exam: no rashes or lesions noted Neuro General: patient oriented x3 Extrem Other: Left knee: Pain is positional on the lateral aspect of the fibular head to roughly half way down the lateral tibia. He describes this as a sharp shooting pain. Denies numbness or tingling. Full ROM of the knee. No tenderness to palpation medial or lateral joint lines. Able to perform straight leg raise without any reproduction of symptoms. Assessment & Plan Assessment & Plan (1) Myofascial pain: Code(s): M79.18 - Myalgia, other site Plan Mr. Martinez is an 87-year-old male who presents in the office today for an evaluation of left knee pain. The patient reports ongoing pain in the left knee for a couple of months. He claims to have an increase in pain with tying his shoe, kneeling and bending. He states he is able to ambulate stairs and walk with out pain. He states his pain is more focused in the chambers. He describes it as sharp and shooting. He states he feels clicking when he walks. He denies numbness or tingling. He denies a history of NSAIDs/Tylenol use. A referral to Physiatry was placed while in the office today for the patient to be further evaluated possible muscle or nerve pain. Follow up with Orthopedics will be PRN, or sooner if needed. X-rays of the left knee which were obtained while in the office today and were reviewed by me, Lynsey Michel PA-C, revealed no acute fracture or dislocation. Degenerative changes noted at the knee. Orders: Orders XR knee standing BI Today M25.569 - Pain in unspecified knee Patient Instructions: Scribed by Chelsy Zhao director of graduate medical education, for Lynsey Michel PA-C on 07/27/2023 at 10:23 am, EST. Coding Level of Care Code Est Pt Level 3 (21884) Diagnoses Myofascial pain M79.18
== END 2023-07-27 10:50 | disposition home or self-care (01) ==
PROVIDERS: PCP Family Medicine; Visit Provider Physician Assistant
DX: M25.562 Pain in left knee (principal); M79.18 Myalgia, other site
CPT/HCPCS: 99213

== ENCOUNTER 2023-08-17 11:48 | Outpatient (AMB) | payer MEDICARE, SELFPAY ==
[2023-08-17 11:58] VITALS: BMI 25.1
--- NOTE | 2023-08-17 11:58 | A.OFFVIS_ITS ---
Intake Vital Signs 08/17/23 11:58 Height 5 ft 11 in Weight 180 lb BMI 25.1 Intake Visit Reasons: ov- lt knee pain Intake Note: Misha an 87 year old male presents today for a follow up of left knee pain. Patient reports he was last seen in the office with on 07/27/23 for ongoing pain in the left knee for a couple of months that is more focused in the chambers area. States he has not tried P.T or injection. States he wants to know what is going on with his knee /leg and why. Allergies No Known Allergies Allergy (Verified 08/17/23 12:02) Medication List - Last Reconciled 08/17/23 by Mariluz Flynn MD ascorbate calcium (vitamin C) 500 mg PO DAILY cholecalciferol (vitamin D3) 50 mcg PO DAILY famotidine 40 mg PO QPM lisinopril 2.5 mg PO DAILY [id number] mcg (Centrum Silver Men) 1 tab PO DAILY oxycodone 5 mg PO Q4H PRN Saccharomyces boulardii (Daily Probiotic (S. boulardii)) 250 mg PO BID simvastatin 20 mg PO DAILY HPI HPI Comments History of Present Illness Details Left knee for several months, denies inciting injuries. Possible swelling. Pain with extreme flexion like bending or kneeling. Very difficult to get up from kneeling. Clicking with he walks. No problem on right side. No numbness. No foot drop. No treatment yet. He walks for exercise. Independent. 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 MSK: Bilateral hip, knee and ankle ROM WNL. Left knee range of motion still full but when he knelt down, it was hard for him to get up. No ligamentous laxity or crepitant. Mild left medial knee effusion. Nontender. No joint line tenderness. No tenderness over patella. Patellar grind test is negative. Anterior drawer test is negative. Shyanne test is negative. Posterior drawer test is negative. Valgus and varus stress tests are negative. Casandra test is negative. Strength is 5/5 in all muscle groups tested. No increased tone noted. Neurological: Neurologic examination of the upper and lower extremities was nonfocal with intact sensation, muscle stretch reflexes and without focal motor deficits . Gait is non-antalgic without loss of balance. Results Reviewed Results Reviewed: I independently reviewed the results of the following: Knee x-ray showed medial joint line narrowing, bilateral knees. I reviewed records from the following: Ortho Assessment & Plan Assessment & Plan (1) Left knee DJD: Code(s): M17.12 - Unilateral primary osteoarthritis, left knee Qualifiers: Osteoarthritis type: primary Qualified Code(s): M17.12 - Unilateral primary osteoarthritis, left knee Plan Suspect knee pain is from DJD. No signs of meniscal or ligament tear. Discussed treatment options. Offered to refer to physical therapy but he says he can do his exercises at home. He asked about CBD versus marijuana gummies. I made it clear that I am not proponent for marijuana. I would rather have him try Voltaren gel instead. Instructions given. We also talked about trial of injection, steroid versus gel. He will think about it. Assessment and plan discussed with patient, and patient was agreeable. All questions were answered thoroughly. Follow-up 6-8 weeks. Call sooner if he wants to try injection. Mariluz Flynn MD, MELQUIADES Board Certified, [place] Of [place] Board of Physical Medicine and Rehabilitation (ABPMR) Board Certified, [place] Of [place] Board of Electrodiagnostic Medicine (ABEM) Medications: New diclofenac sodium 1% apply to left knee up to 4 times a day 4 grams topical QID 100 grams 2RF Discontinued oxycodone Partial Fill upon patient request. Discontinued Reason: Patient no longer taking 5 mg PO Q4H PRN 20 tabs 0RF pain (scale score 7-10) Coding Level of Care Code New Pt Level 4 (81424) Diagnoses Primary osteoarthritis of left knee M17.12 Osteoarthritis type: primary
== END 2023-08-17 12:24 | disposition home or self-care (01) ==
PROVIDERS: PCP Family Medicine; Visit Provider Physical Medicine & Rehabilitation
DX: M17.12 Unilateral primary osteoarthritis, left knee (principal)
CPT/HCPCS: 99204

== ENCOUNTER → 2023-08-17 11:48 | Outpatient (BNVA) | payer MEDICARE, SELFPAY | PROVIDERS: PCP Family Medicine; Visit Provider Physical Medicine & Rehabilitation | DX: M17.12 Unilateral primary osteoarthritis, left knee (principal) | CPT/HCPCS: 99202 ==

== ENCOUNTER 2023-10-12 11:50 | Outpatient (AMB) | payer MEDICARE, SELFPAY ==
[2023-10-12 11:52] VITALS: BMI 25.1
--- NOTE | 2023-10-12 11:52 | A.OFFVIS_ITS ---
Vital Signs 10/12/23 11:52 Height 5 ft 11 in Weight 180 lb BMI 25.1 Intake Visit Reasons: ov- lt knee pain Intake Note: Misha 88 yr old male presents today for his follow up visit for his left knee O.A. On his last visit he stated he will think about trying injections. Currently states his knee pain is better and doesn't feel like he needs an injection. Allergies No Known Allergies Allergy (Verified 10/12/23 11:54) HPI Comments Details: Initially seen for left knee pain, bothering him for several months, denies inciting injuries. Possible swelling. Pain with extreme flexion like bending or kneeling. Very difficult to get up from kneeling. Clicking with he walks. No problem on right side. No numbness. No foot drop. Since last visit, he's been doing his walks for exercise. Pain has subsided at least 90%. No redness or swelling. Happy with this improvement. 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 Fingers have been swollen for years, told to have arthritis. No recent imaging done. Does not know if there is family history of RA. [facility] Medical History (Updated 10/12/23 @ 12:12 by Mariluz Flynn MD) Hand arthritis Left knee DJD Sleep apnea with use of continuous positive airway pressure (CPAP) Cancer of left colon Former smoker Abnormal colonoscopy Hyperlipidemia HTN (hypertension) Surgical History S/P partial colectomy (06/27/22) History of carpal tunnel release History of colonoscopy History of neck surgery History of appendectomy Family History Father Prostate cancer Social History Household Members: Family Housing: House Patient Tobacco Use Status: Former Tobacco user service: Yes Current occupational status: retired 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 MSK: Left knee: No ligamentous laxity or crepitant. Mild left medial knee effusion. Nontender. No joint line tenderness. No tenderness over patella. Patellar grind test is negative. Anterior drawer test is negative. Shyanne test is negative. Posterior drawer test is negative. Valgus and varus stress tests are negative. 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 No intrinsic hand weakness. No atrophy. Heberden nodes on multiple fingers, bony enlargement on MCP and IP joints, bilateral. Not tender to touch. Not red. Neurological: Neurologic examination of the upper and lower extremities was nonfocal with intact sensation, muscle stretch reflexes and without focal motor deficits . Gait is non-antalgic without loss of balance. Results Reviewed Results Reviewed: Ordering Physician: Lynsey Michel PA-C Date of Service: 07/27/23 Procedure(s): XR knee standing BI Accession Number(s): [id number] cc: Lynsey Michel PA-C~ EXAMINATION: XR KNEE AP STANDING, BILATERAL CLINICAL INFORMATION: Pain in knee. COMPARISON: Left knee 06/27/2023 TECHNIQUE: AP bilateral standing view of the knees was obtained. FINDINGS: AP bilateral knee standing reveals loss of medial compartment joint space. The lateral compartment joint space is preserved. No visible acute fracture, dislocation or loose body seen. No bony erosive changes. The soft tissues are normal. XR/XR knee standing BI IMPRESSION: Mild degenerative changes medial compartment both knees. No visible acute fracture, dislocation or subluxation seen. Assessment & Plan Assessment & Plan (1) Hand arthritis: Code(s): M19.049 - Primary osteoarthritis, unspecified hand Category: Medical (2) Left knee DJD: Code(s): M17.12 - Unilateral primary osteoarthritis, left knee Category: Medical Qualifiers: Osteoarthritis type: primary Qualified Code(s): M17.12 - Unilateral primary osteoarthritis, left knee Plan Mild left knee on xray. Improved with walking. Can do leg/knee extension exercises at home. Can do stationary bike. Hand/finger osteoarthritis. Will confirm with xrays today. 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 Diclofenac gel might help but he does not like using those. Assessment and plan discussed with patient, and patient was agreeable. All questions were answered thoroughly. Follow-up sometime in November before summer. Mariluz Flynn MD, [place] Board Certified, [place] [employer] and [employer] (ABPMR) Board Certified, [place] [employer] Electrodiagnostic Medicine (ABEM) Orders: Orders XR hand LT min 3V Today M19.049 - Primary osteoarthritis, unspecified hand XR hand RT min 3V Today M19.049 - Primary osteoarthritis, unspecified hand Coding Level of Care Code Est Pt Level 4 (14032) Diagnoses Hand arthritis M19.049 Primary osteoarthritis of left knee M17.12 Osteoarthritis type: primary
== END 2023-10-12 14:25 | disposition home or self-care (01) ==
PROVIDERS: PCP Family Medicine; Visit Provider Physical Medicine & Rehabilitation
DX: M19.049 Primary osteoarthritis, unspecified hand (principal); M17.12 Unilateral primary osteoarthritis, left knee
CPT/HCPCS: 99214

== ENCOUNTER 2023-10-12 11:50 | Outpatient (REF) | payer MEDICARE, SELFPAY ==
--- NOTE | ~2023-10-12 | XR_ITS ---
EXAMINATION: XR BILATERAL HANDS CLINICAL INFORMATION: Primary osteoarthritis, evaluate for DJD. COMPARISON: None available. TECHNIQUE: 3 views of each hand. FINDINGS: LEFT HAND: Bones are diffusely demineralized. Narrowing of the radiocarpal joint. Degenerative changes with joint space narrowing and hypertrophic change in the first carpometacarpal and STT. Advanced degenerative changes with joint space narrowing, hypertrophic change and erosions in the IP joints of the hands, most notable in the second and fourth PIP and second and third DIP joints. Moderate degenerative changes in the first and second MCP joints. Visualization on the lateral view limited due to overlapping of digits. RIGHT HAND: Bones are diffusely demineralized. Narrowing of the radiocarpal joint. Small cystic lucencies in the distal ulna. Cystic lucencies at the base of the first proximal phalanx. Degenerative changes with joint space narrowing and hypertrophic change in the first carpometacarpal and STT. Advanced degenerative changes with joint space narrowing, hypertrophic change and erosions in the IP joints of the hands, most notable in the fourth and fifth PIP and third and fifth DIP joints. Moderate degenerative changes in the first MCP joint. XR/XR hand LT min 3V IMPRESSION: Degenerative changes in the bilateral hands, as detailed above.
--- NOTE | ~2023-10-12 | XR_ITS ---
EXAMINATION: XR BILATERAL HANDS CLINICAL INFORMATION: Primary osteoarthritis, evaluate for DJD. COMPARISON: None available. TECHNIQUE: 3 views of each hand. FINDINGS: LEFT HAND: Bones are diffusely demineralized. Narrowing of the radiocarpal joint. Degenerative changes with joint space narrowing and hypertrophic change in the first carpometacarpal and STT. Advanced degenerative changes with joint space narrowing, hypertrophic change and erosions in the IP joints of the hands, most notable in the second and fourth PIP and second and third DIP joints. Moderate degenerative changes in the first and second MCP joints. Visualization on the lateral view limited due to overlapping of digits. RIGHT HAND: Bones are diffusely demineralized. Narrowing of the radiocarpal joint. Small cystic lucencies in the distal ulna. Cystic lucencies at the base of the first proximal phalanx. Degenerative changes with joint space narrowing and hypertrophic change in the first carpometacarpal and STT. Advanced degenerative changes with joint space narrowing, hypertrophic change and erosions in the IP joints of the hands, most notable in the fourth and fifth PIP and third and fifth DIP joints. Moderate degenerative changes in the first MCP joint. XR/XR hand RT min 3V IMPRESSION: Degenerative changes in the bilateral hands, as detailed above.
== END 2023-10-12 11:51 | disposition home or self-care (01) ==
LOC: HO.HOSX 11:50
PROVIDERS: PCP Family Medicine; Visit Provider Physical Medicine & Rehabilitation
DX: M19.041 Primary osteoarthritis, right hand (principal); M19.042 Primary osteoarthritis, left hand; M17.12 Unilateral primary osteoarthritis, left knee
CPT/HCPCS: 73130; 99212

== ENCOUNTER 2023-11-27 09:30 | Day surgery (SDC) | payer MEDICARE, SELFPAY ==
[2023-11-23 12:43] VITALS: BMI 26.5
[2023-11-27 09:54] VITALS: BP 126/78; PULSE 69; RESP 18; TEMP 36.8; O2SAT 98; BMI 26.5
--- NOTE | 2023-11-27 10:10 | HO.ANESPROP2 ---
HPI - Anesthesia Eval Consult details Narrative: 88 yo male patient for Colonoscopy PMFSH Active Problems Active Problems: All Active Problems Myofascial pain (Acute) Tear of left biceps muscle (Acute) Impacted cerumen of both ears (Acute) Hand arthritis (Acute) Left knee DJD (Acute) Cancer of left colon (Acute) Sleep apnea with use of continuous positive airway pressure (CPAP) (Acute) Past Medical History Medical History Hand arthritis Left knee DJD Sleep apnea with use of continuous positive airway pressure (CPAP) Cancer of left colon Former smoker Abnormal colonoscopy Hyperlipidemia HTN (hypertension) Family History Family History Father Prostate cancer Family history of problems with anesthesia: No Surgical History Surgical History S/P partial colectomy (06/27/22) History of carpal tunnel release History of colonoscopy History of neck surgery History of appendectomy History of Problems with Anesthesia: No Social History Social History Household Members: Family Housing: House Patient Tobacco Use Status: Former Tobacco user Are you DNR?: No Advance Directives: No Advance Directives Information Provided: Yes service: Yes 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 boulardii)) ascorbate calcium (vitamin C) 500 500 mg PO DAILY 06/01/21 11/23/23 Unknown History mg tablet cholecalciferol (vitamin D3) 50 50 mcg PO DAILY 06/01/21 11/23/23 Unknown History mcg (2,000 unit) capsule famotidine 40 mg tablet 40 mg PO QPM 06/01/21 11/23/23 Unknown History lisinopril 2.5 mg tablet 2.5 mg PO DAILY 06/01/21 11/23/23 11/27/23 History ahvplgab-qy-mwswf 300 mcg-K 60 1 tab PO DAILY 06/01/21 11/23/23 Unknown History mcg-lycop 600 mcg-lutein 300 mcg tablet (Centrum Silver Men) simvastatin 20 mg tablet 20 mg PO DAILY 06/01/21 11/23/23 Unknown History aspirin 81 mg tablet,delayed 81 mg PO DAILY 11/23/23 11/23/23 11/23/23 History release Exam Height,Weight and Vital Signs: Height 5 ft 11 in Weight 86.2 kg Last Vital Signs Temp 98.3 F 11/27/23 09:54 Pulse 69 11/27/23 09:54 Resp 18 11/27/23 09:54 BP 126/78 11/27/23 09:54 Pulse Ox 98 11/27/23 09:54 O2 Del Method Room Air 11/27/23 09:54 Airway Mallampati Class: III TM Dist: >3cm Neck ROM: Full Denture: Upper Partial: Lower Loose/Missing/Broken Teeth: Yes (Denies broken or loose teeth. ) Heart: RRR Lungs: CTAB Assessment and Plan Assessment Anesthesia Assessment: Anesthesia Plan Discussed and Chart Reviewed Final Anesthetic Review Family History of Problems with Anesthesia: No History of Problems with Anesthesia: No NPO: Yes ASA Class: III Final Preanesthetic Review: No Changes in Pt Med Stat, Meds/Allgs Chart Reviewed, Consent Obtained/Reviewed and Anes Risks/Benef Reviewed Patient Risk: Intermediate Procedure Risk: Low Assessment/Block/Sedation in SS: Assess/Block/Sedation-SS Anesthetic Plan Anesthetic Plan: TIVA Disposition: Standard PACU
--- NOTE | 2023-11-27 10:17 | PC.NURSE ---
fleets given with yellow results no solid liquid
[2023-11-27] MEDS: Sodium Phosphate,Mono-Dibasic 133 ML ENEMA PR (10:24)
[2023-11-27 11:39] VITALS: BP 90/49; PULSE 61; RESP 12; TEMP 36.6; O2SAT 97
--- NOTE | 2023-11-27 11:43 | P.BOP_ITS ---
Brief Operative Note Date of Service: 11/27/23 Pre-op diagnosis: Screening Post-op diagnosis: other (Anastomotic stricture) Procedure: Colonoscopy to the cecum and TI with Balloon Dilation 12mm to 13.5mm to 15mm of the anastomosis Surgeon: Misha Elliott MD Anesthesia: MAC Was an Water/Wastewater Project Engineer used for this Procedure?: No Estimated blood loss (mL): 2.0 Pathology: none sent Condition: stable Disposition: PACU
[2023-11-27 11:44] VITALS: BP 112/56; PULSE 55; RESP 13; O2SAT 95
[2023-11-27 11:49] VITALS: BP 111/58; PULSE 54; RESP 13; O2SAT 95
[2023-11-27 11:54] VITALS: BP 103/61; PULSE 56; RESP 16; TEMP 36.3; O2SAT 95
--- NOTE | 2023-11-27 22:33 | OP_ITS ---
DATE OF SERVICE: 11/27/2023 SURGEON: Misha Elliott MD INDICATIONS: The patient presents for followup of personal history of colon cancer and personal history of tubular adenoma of the colon, and colorectal cancer screening. Full consent has been obtained from him for this, including risks of bleeding and perforation. PREOPERATIVE DIAGNOSIS: POSTOPERATIVE DIAGNOSIS: PROCEDURE PERFORMED: Colonoscopy to the cecum and terminal ileum with balloon dilation of anastomotic stricture. ESTIMATED BLOOD LOSS: COMPLICATIONS: ANESTHESIA: Medication used; monitored anesthesia care. ASSISTANTS: SPECIMENS: PREOPERATIVE DIAGNOSES: Personal history of colon cancer, personal history of colon polyps, colorectal cancer screening. POSTOPERATIVE DIAGNOSES: Personal history of colon cancer, personal history of colon polyps, colorectal cancer screening, anastomotic stricture, diverticulosis, and internal hemorrhoids. DESCRIPTION OF PROCEDURE: The patient was placed in the left lateral decubitus position. The digital rectal exam revealed no abnormalities. The Olympus video pediatric colonoscope was entered into the rectum and advanced to a level of approximately 40 cm. At this level was the anastomosis with a single staple remaining. The anastomosis was patent, but relatively narrow and would not allow passage of the colonoscope. The patient had not given a history of any obstructive symptoms, but nonetheless given its appearance and relatively narrow diameter and not allowing passage of the scope, I did feel that would be important to dilate this rather than wait for problems in the future. I did use a [employer] incremental colonic dilating balloon to dilate the anastomosis from 12 mm to 13.5 mm to 15 mm at the recommended pressure for between 30 and 60 seconds each. Post dilation, there was clear disruption of the stricture and then this allowed easy passage of the scope into the proximal bowel. The scope was then easily advanced to the cecum. Once in the cecum, I did identify normal-appearing cecal pouch with appendiceal orifice and a normal-appearing ileocecal valve. The terminal ileum was cannulated and appeared normal. The scope was withdrawn back in the colon. The entire cecum and ileocecal valve appeared normal. The scope was then slowly withdrawn assessing all mucosal surfaces carefully. Preparation was excellent. I did not visualize any sign of polyps, colitis, nor angiodysplasia. The anastomosis was again well visualized and now appeared much more patent and with some disruption in relation to the dilation. There was no bleeding. There was some diverticula noted distal to the anastomosis. In the rectum, scope was retroflexed visualizing some internal hemorrhoids, but no other pathology. The rectal mucosa appeared normal. Scope was straightened and withdrawn from the patient. He tolerated the procedure well and was returned to the recovery area in stable condition. IMPRESSION: 1. Mild diverticulosis. 2. 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 3. Internal hemorrhoids. PLAN: At this point, given the negative exam in regard to polyps and his age, I do not think he would need any further screening colonoscopies. He has been instructed to call me if he develops any symptoms of obstruction such as constipation or abdominal distention, in which case we might need to dilate the stricture again, but again, prior to the procedure today, he was not having any obstructive symptoms. I did instruct him to see me later in the year. I did advise him to call me as needed prior to that. He was advised not to use any aspirin or NSAIDs for at least 1 week. 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 This has been discussed with his daughter, Marisela. MD BRAYDON Rasmussen/BANDAR / [phone]
== END 2023-11-27 12:27 | disposition home or self-care (01) ==
PROVIDERS: PCP Family Medicine; Visit Provider Internal Medicine
PROC: 0DJD8ZZ Inspection of Lower Intestinal Tract, Via Natural or Artificial Opening Endoscopic (ICD-10-PCS; CPT 45378; principal; 2023-11-27 10:40)
DX: Z12.11 Encounter for screening for malignant neoplasm of colon (principal); K63.89 Other specified diseases of intestine; K57.30 Diverticulosis of large intestine without perforation or abscess without bleeding; K64.8 Other hemorrhoids; C18.5 Malignant neoplasm of splenic flexure; Z85.038 Personal history of other malignant neoplasm of large intestine; Z86.010 Personal history of colon polyps; I10 Essential (primary) hypertension; E78.5 Hyperlipidemia, unspecified; Z79.02 Long term (current) use of antithrombotics/antiplatelets; Z79.82 Long term (current) use of aspirin; Z79.899 Other long term (current) drug therapy
CPT/HCPCS: 45386; C1726; J2704

== ENCOUNTER 2023-12-01 14:21 | Outpatient (REF) | payer MEDICARE, SELFPAY ==
--- NOTE | ~2023-12-01 | XR_ITS ---
EXAMINATION: XR ABDOMEN COMPLETE CLINICAL INDICATION: Left lower quadrant abdominal pain COMPARISON: 06/24/2022 TECHNIQUE: 2 views of the abdomen. FINDINGS: The bowel gas pattern is normal with no evidence of ileus or obstruction. No unusual soft tissue calcifications are noted. The bones are unremarkable. XR/XR abdomen min 2V IMPRESSION: Unremarkable examination.
== END 2023-12-01 14:22 | disposition home or self-care (01) ==
LOC: HO.XRAY 14:21
PROVIDERS: PCP Family Medicine; Visit Provider Family Medicine
DX: R10.12 Left upper quadrant pain (principal)
CPT/HCPCS: 74019

== ENCOUNTER 2023-12-07 10:09 | Outpatient (AMB) | payer MEDICARE, SELFPAY ==
--- NOTE | 2023-12-07 10:11 | MHC.OFFVIS ---
Vital Signs 12/07/23 10:13 Height 5 ft 11 in Weight 181 lb BMI 25.2 Intake Visit Reasons: ov- lt knee pain Intake Note: Misha is a 88 year old male who presents today for a follow up of left leg pain. Patient reports he is doing better. He says he changed the way he sits and believes this is what helped improve the mobility in his left knee. He walks every morning and does stretching exercises such as flexion of the left knee more that has helped him as well. Allergies No Known Allergies Allergy (Verified 12/07/23 10:13) Medication List - Last Reconciled 12/07/23 by Mariluz Flynn MD ascorbate calcium (vitamin C) 500 mg PO DAILY aspirin 81 mg PO DAILY cholecalciferol (vitamin D3) 50 mcg PO DAILY diclofenac sodium 1% 4 grams topical QID famotidine 40 mg PO QPM lisinopril 2.5 mg PO DAILY [id number]-choldso-[id number] mcg (Centrum Silver Men) 1 tab PO DAILY Saccharomyces boulardii (Daily Probiotic (S. boulardii)) 250 mg PO BID simvastatin 20 mg PO DAILY HPI Comments Details: Initially seen for left knee pain, bothering him for several months, denies inciting injuries. Possible swelling. Pain with extreme flexion like bending or kneeling. Very difficult to get up from kneeling. Clicking with he walks. No problem on right side. No numbness. No foot drop. 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 Fingers have been swollen for years, told to have arthritis. Left knee pain has improved since he started doing more flexion exercises. No swelling since last time I saw him. No other injuries. 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 COMPARISON: None available. TECHNIQUE: 3 views of each hand. FINDINGS: LEFT HAND: Bones are diffusely demineralized. Narrowing of the radiocarpal joint. Degenerative changes with joint space narrowing and hypertrophic change in the first carpometacarpal and STT. Advanced degenerative changes with joint space narrowing, hypertrophic change and erosions in the IP joints of the hands, most notable in the second and fourth PIP and second and third DIP joints. Moderate degenerative changes in the first and second MCP joints. Visualization on the lateral view limited due to overlapping of digits. RIGHT HAND: Bones are diffusely demineralized. Narrowing of the radiocarpal joint. Small cystic lucencies in the distal ulna. Cystic lucencies at the base of the first proximal phalanx. Degenerative changes with joint space narrowing and hypertrophic change in the first carpometacarpal and STT. Advanced degenerative changes with joint space narrowing, hypertrophic change and erosions in the IP joints of the hands, most notable in the fourth and fifth PIP and third and fifth DIP joints. Moderate degenerative changes in the first MCP joint. XR/XR hand RT min 3V IMPRESSION: Degenerative changes in the bilateral hands, as detailed above. Ordering Physician: Lynsey Michel PA-C Date of Service: 07/27/23 Procedure(s): XR knee standing BI Accession Number(s): [id number] cc: Lynsey Michel PA-C~ EXAMINATION: XR KNEE AP STANDING, BILATERAL CLINICAL INFORMATION: Pain in knee. COMPARISON: Left knee 06/27/2023 TECHNIQUE: AP bilateral standing view of the knees was obtained. FINDINGS: AP bilateral knee standing reveals loss of medial compartment joint space. The lateral compartment joint space is preserved. No visible acute fracture, dislocation or loose body seen. No bony erosive changes. The soft tissues are normal. XR/XR knee standing BI IMPRESSION: Mild degenerative changes medial compartment both knees. No visible acute fracture, dislocation or subluxation seen. Assessment & Plan Assessment & Plan (1) Left knee DJD: Code(s): M17.12 - Unilateral primary osteoarthritis, left knee Category: Medical Qualifiers: Osteoarthritis type: primary Qualified Code(s): M17.12 - Unilateral primary osteoarthritis, left knee (2) Hand arthritis: Code(s): M19.049 - Primary osteoarthritis, unspecified hand Category: Medical Plan Mild left knee on xray. Improved with walking and flexion exercises. Continue to play golf and walk for exercise. No restrictions. Hand/finger osteoarthritis. No signs of acute synovitis or inflammation. Assessment and plan discussed with patient, and patient was agreeable. All questions were answered thoroughly. No further intervention at this time. Follow up as needed. Mariluz Flynn MD, [place] Board Certified, [place] [employer] and [employer] (ABPMR) Board Certified, [place] [employer] (ABEM) Coding Level of Care Code Est Pt Level 3 (62971) Diagnoses Primary osteoarthritis of left knee M17.12 Osteoarthritis type: primary Hand arthritis M19.049
[2023-12-07 10:13] VITALS: BMI 25.2
== END 2023-12-07 10:25 | disposition home or self-care (01) ==
LOC: HO.HOS 10:09
PROVIDERS: PCP Family Medicine; Visit Provider Physical Medicine & Rehabilitation
DX: M17.12 Unilateral primary osteoarthritis, left knee (principal); M19.049 Primary osteoarthritis, unspecified hand
CPT/HCPCS: 99213

== ENCOUNTER → 2023-12-07 10:09 | Outpatient (BNVA) | payer MEDICARE, SELFPAY | PROVIDERS: PCP Family Medicine; Visit Provider Physical Medicine & Rehabilitation | DX: M17.12 Unilateral primary osteoarthritis, left knee (principal); M19.049 Primary osteoarthritis, unspecified hand | CPT/HCPCS: 99212 ==

== ENCOUNTER 2023-12-11 11:40 | Outpatient (REF) | payer MEDICARE, SELFPAY ==
[2023-12-11 12:02] LABS: MANUAL DIFF FLAG NO
[2023-12-11 12:23] LABS: Basophils Percent Auto 0.6 % (0-2); Eosinophils Absolute Auto 0.2 X10*3/uL (0.0-0.4); Eosinophils Percent Auto 3.4 % (0-4); Hematocrit 40.4 % (42.0-52.0); Hemoglobin 13.9 g/dl (14.0-18.0); Imm Gran Abs Auto 0.02 X10*3/uL (0.00-0.03); Imm Gran Pct Auto 0.3 % (0.0-0.4); Lymphocytes Absolute Auto 2.4 X10*3/uL (1.2-4.9); Lymphocytes Percent Auto 33.3 % (20-40); Mean Corpuscular HGB Conc 34.4 g/dl (31.0-36.0); Mean Corpuscular Hemoglobin 34.2 pg (27.0-33.0); Mean Corpuscular Volume 99.5 fL (80.0-98.0); Mean Platelet Volume 8.9 fL (9.4-12.4); Monocytes Absolute Auto 0.6 X10*3/uL (0.1-1.2); Monocytes Percent Auto 8.4 % (2-11); Neutrophils Absolute Auto 3.9 x10*3/uL (2.0-8.3); Platelet Count 309 X10*3/uL (160-400); Red Blood Count 4.06 X10*6/uL (4.60-5.80); Red Cell Distribution Width 12.4 % (11.0-16.0); White Blood Count 7.2 X10*3/uL (4.8-10.8)
[2023-12-11 13:14] LABS: Alanine Aminotransferase 19 U/L (0-40); Anion Gap 12 (12-20); Aspartate Amino Transferase 24 U/L (5-37); Blood Urea Nitrogen 20 mg/dL (9-16); Carbon Dioxide 27 mmol/L (22-29); Chloride 106 mmol/L (96-108); Estimated Glomerular Filt Rate > 60; Potassium 4.4 mmol/L (3.3-5.1); Sodium 141 mmol/L (135-145)
== END 2023-12-11 11:41 | disposition home or self-care (01) ==
LOC: HO.LAB 11:40
PROVIDERS: PCP Family Medicine; Visit Provider Family Medicine
DX: I10 Essential (primary) hypertension (principal); C18.9 Malignant neoplasm of colon, unspecified; E78.00 Pure hypercholesterolemia, unspecified; Z79.899 Other long term (current) drug therapy
CPT/HCPCS: 36415; 80051; 82378; 82550; 82565; 84450; 84460; 84520; 85025

== ENCOUNTER 2024-01-02 11:25 | Outpatient (REF) | payer MEDICARE, SELFPAY ==
[2024-01-02 11:46] LABS: MANUAL DIFF FLAG NO
[2024-01-02 12:29] LABS: Basophils Percent Auto 0.5 % (0-2); Eosinophils Absolute Auto 0.3 X10*3/uL (0.0-0.4); Eosinophils Percent Auto 4.3 % (0-4); Hematocrit 42.3 % (42.0-52.0); Hemoglobin 14.1 g/dl (14.0-18.0); Imm Gran Abs Auto 0.01 X10*3/uL (0.00-0.03); Imm Gran Pct Auto 0.2 % (0.0-0.4); Lymphocytes Absolute Auto 2.4 X10*3/uL (1.2-4.9); Lymphocytes Percent Auto 41.2 % (20-40); Mean Corpuscular HGB Conc 33.3 g/dl (31.0-36.0); Mean Corpuscular Hemoglobin 32.8 pg (27.0-33.0); Mean Corpuscular Volume 98.4 fL (80.0-98.0); Mean Platelet Volume 9.3 fL (9.4-12.4); Monocytes Absolute Auto 0.6 X10*3/uL (0.1-1.2); Monocytes Percent Auto 9.8 % (2-11); Neutrophils Absolute Auto 2.6 x10*3/uL (2.0-8.3); Platelet Count 235 X10*3/uL (160-400); Red Cell Distribution Width 12.7 % (11.0-16.0); White Blood Count 5.8 X10*3/uL (4.8-10.8)
[2024-01-02 12:57] LABS: Alanine Aminotransferase 20 U/L (0-40); Albumin Level 4.3 g/dL (3.5-5.0); Alkaline Phosphatase 64 U/L (39-117); Anion Gap 13 (12-20); Aspartate Amino Transferase 27 U/L (5-37); Bilirubin Total 0.7 mg/dL (0.0-1.0); Blood Urea Nitrogen 16 mg/dL (9-16); Calcium 10.2 mg/dL (8.4-10.2); Carbon Dioxide 27 mmol/L (22-29); Chloride 105 mmol/L (96-108); Cholesterol 140 mg/dL (<200); Estimated Glomerular Filt Rate > 60; Glucose Fasting 84 mg/dL (60-99); HDL Cholesterol 60 mg/dL (>40); LDL Cholesterol Calculated 67 mg/dL (<100); Potassium 4.6 mmol/L (3.3-5.1); Sodium 140 mmol/L (135-145); Total Protein 7.6 g/dL (6.5-8.0); Triglycerides 65 mg/dL (<150)
[2024-01-02 13:12] LABS: Prostate Specific Antigen 0.12 ng/mL (<0.05-4.0)
== END 2024-01-02 11:26 | disposition home or self-care (01) ==
LOC: HO.LAB 11:25
PROVIDERS: PCP Family Medicine; Visit Provider Internal Medicine Medical Oncology
DX: C18.9 Malignant neoplasm of colon, unspecified (principal); N40.0 Benign prostatic hyperplasia without lower urinary tract symptoms; E78.2 Mixed hyperlipidemia; Z12.5 Encounter for screening for malignant neoplasm of prostate
CPT/HCPCS: 36415; 80053; 80061; 84153; 85025

== ENCOUNTER 2024-03-13 09:13 | Outpatient (REF) | payer MEDICARE, SELFPAY ==
[2024-03-13 10:35] LABS: Prostate Specific Antigen 0.13 ng/mL (<0.05-4.0)
== END 2024-03-13 09:14 | disposition home or self-care (01) ==
LOC: HO.LAB 09:13
PROVIDERS: PCP Family Medicine; Visit Provider Family Medicine
DX: N40.0 Benign prostatic hyperplasia without lower urinary tract symptoms (principal); Z12.5 Encounter for screening for malignant neoplasm of prostate; Z98.890 Other specified postprocedural states
CPT/HCPCS: 36415; 84153

== ENCOUNTER 2024-10-25 07:21 | Outpatient (REF) | payer MEDICARE, SELFPAY ==
--- OUTSIDE RECORDS SUMMARY | 2024-10-25 07:25 | XMS_ITS ---
Author Organization [facility] Address [address] [place] [id number] Care Team Providers Care Repairer Auto Clocks Name Role Phone Abdias WEATHERS, Keron Primary Care Provider UnavailMax Gaspar Unavailable [phone] Allergies No Known Allergies REASON FOR VISIT patient presents today for stricture Medications Medication SIG (Take, Route, Frequency, Duration) Notes Start Date End Date Status Multivitamin Adult - 1 tablet Orally Onc e a day for 30 day(s) Active Move Free Joint Health Advance - as directed Orally Active Magnesium 400 MG as directed Orally Active Vitamin D3 50 MCG (1999 UT) 1 tablet Ora lly Once a day for 30 day(s) Active Simvastatin 20 MG TAKE 1 TABLET BY SHANTHI TH DAILY Oral for 90 Active Famotidine 40 MG TAKE 1 TABLET BY SHANTHI TH EVERY DAY AT SUPPER TIME Oral for 90 Active Vitamin C 1000 MG 1 tablet Orally Once a day for 30 day(s) Active Lisinopril 2.5 MG TAKE 1 TABLET BY SHANTHI TH ONCE EVERY DAY DIRECTED Oral for 90 Active Social History Tobacco Use: Social History Observation Description Date Details (start date - stop date) Former Smoker NA - NA Tobacco Use/Smoking Question Answer Notes Patient is a former smoker How long has it been since you last smoked? > 10 years Alcohol Screen Question Answer Notes Did you have a drink containing alcohol in the p ast year? 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 [place] [address] 05/07/2024 Max Elliott Personal history of colon cancer Z85.038 and Gastrointestinal anastomotic stricture K91.30 Assessments Encounter Date Diagnosis (ICD Code) Assessment Notes Treatment Notes Treatment Clinical Notes Section Notes 05/07/2024 Personal history of colon cancer (ICD-10 - Z85.038) Call me if you start having trouble with the BM's such as constipation or bleeding. Overall, Max appears quite well. We did review the findings on his colonoscopy from November. He remains completely asymptomatic in regard to the anastomotic stricture. Given the negative exam and his age I advised him that I do not think he will need any further screening colonoscopies despite the previous history of colon cancer. However, I did advise him that he would definitely need to call me if he begins to develop any constipation or bleeding in which case we would want to repeat a colonoscopy to reassess the anastomotic stricture and to rule out any other problems such as polyps. However, if things remain as stable as they presently are, he would then just See me on a p.r.n. basis. Max was very comfortable with this plan. Thank you again for allowing me to have participated in Max's care. Please do not hesitate to contact me if I can be of any further assistance in the future. 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 We did review the findings on his colonoscopy from November. He remains completely asymptomatic in regard to the anastomotic stricture. Given the negative exam and his age I advised him that I do not think he will need any further screening colonoscopies despite the previous history of colon cancer. However, I did advise him that he would definitely need to call me if he begins to develop any constipation or bleeding in which case we would want to repeat a colonoscopy to reassess the anastomotic stricture and to rule out any other problems such as polyps. However, if things remain as stable as they presently are, he would then just See me on a p.r.n. basis. Max was very comfortable with this plan. Thank you again for allowing me to have participated in Max's care. Please do not hesitate to contact me if I can be of any further assistance in the future. Plan Of Treatment Treatment Notes Assessment Notes Personal history of colon cancer Call me if you start having trouble with the BM's such as constipation or bleeding. Next Appt Details Follow Up: prn, Reason: Progress Notes * MAX WATERMAN WDOB: 6 (88 yo M)Acc No.[id number]:05/07/2024 Progress Notes Patient:?MAX WATERMAN Provider:?Max Elliott MD :1935???Age:88 Y???Sex:Male Bhupendra e:05/07/2024 Address:[address] [place], [place] [id number] Pcp:Keron Calero MD Subjective: * Chief Complaints: * ???Patient presents today fo r stricture * HPI: ???incontinence:? I saw Max in followup today in regard to his personal history of colon cancer and anastomotic stricture. ?I last saw Max in November, at which time he underwent a followup colonoscopy in regard to the previous history of the obstructing colon cancer. The colonoscopy revealed an anastomotic stricture that would not allow passage of the scope. Interestingly, he was asymptomatic at that time. The stricture was dilated with a large balloon with good results. I was able to pass it with the colonoscope and the remainder of the colonoscopy was completely normal and without any sign of polyps or other abnormalities. Since that procedure he has been feeling well. His bowel movements have remained regular and without any sign of bleeding. He enjoys a good appetite and denies any significant heartburn or dysphagia. He denies abdominal pain, abdominal distention, jaundice, nor weight loss. * ROS:?General/Constitutional:?Change in appetite?denies.?Chills?denies.?Fatigue?denies.?Ophthalmologic:?Comments?all negative.?ENT:?Comments?all negative.?Respiratory:?hemoptysis?denies.?Cough?denies.?Cardiovascular:?Chest pain?denies.?Orthopnea?denies.?Gastrointestinal:?Comments?See HPI for details.?Genitourinary:?Hematuria?denies.?Dysuria?denies.?Musculoskeletal:?Painful joints?denies.?Weakness?denies.?Skin:?Itching?denies.?Rash?denies.?Neurologic:?Headache?denies.?Seizures?denies.?Psychiatric:?Comments?all negative.? * Medical History:? * Surgical History:?Appendecto my C-spine Left colectomy 06/2022 for colon cancer- Dr. Rizvi and Dr. Moncada-no chemo * Hospitalization/Major Diagno stic Procedure:?No Hospitalization History. * Family History:?Father: dece ased.?Mother: .? No known hx of colorectal cancer. * Social History:?Tobacco Use:?Tobacco Use/Smoking?Patient is a?former smoker,?How long has it been since you last smoked??> 10 years.?Drugs/Alcohol:?Alcohol Screen?Did you have a drink containing alcohol in the past year??No,?Points?0,?Interpretation?Negative.?Miscellaneous:?Marital status: -- in November of 2021. Occupation: retired. ???Nonsmoker; no sig alcohol. * Medications:?TakingVitamin C 1000 MG Tablet 1 tablet Orally Once a dayVitamin D3 50 MCG (2000 UT) Tablet 1 tablet Orally Once a dayMagnesium 400 MG Capsule as directed Orally Move Free Joint Health Advance - Tablet as directed Orally Multivitamin Adult - Tablet 1 tablet Orally Once a daySimvastatin 20 MG Tablet TAKE 1 TABLET BY MOUTH DAILY Oral Lisinopril 2.5 MG Tablet TAKE 1 TABLET BY MOUTH ONCE EVERY DAY DIRECTED Oral Famotidine 40 MG Tablet TAKE 1 TABLET BY MOUTH EVERY DAY AT SUPPER TIME Oral Taking Vitamin C 1000 MG Tablet 1 tablet Orally Once a dayTaking Vitamin D3 50 MCG (1999) Tablet 1 tablet Orally Once a dayTaking Magnesium 400 MG Capsule as directed Orally Taking Move Free Joint Health Advance - Tablet as directed Orally Taking Multivitamin Adult - Tablet 1 tablet Orally Once a dayTaking Simvastatin 20 MG Tablet TAKE 1 TABLET BY MOUTH DAILY Oral Taking Lisinopril 2.5 MG Tablet TAKE 1 TABLET BY MOUTH ONCE EVERY DAY DIRECTED Oral Taking Famotidine 40 MG Tablet TAKE 1 TABLET BY MOUTH EVERY DAY AT SUPPER TIME Oral DiscontinuedLow-Dose Aspirin 81 MG Tablet as directed Orally Discontinued Low-Dose Aspirin 81 MG Tablet as directed Orally * Allergies:?N.K.D.A.yes[Aller gies Verified] Objective: * Vitals:?Wt: 185 lbs, Ht: 71 in, BMI:25.80 Index, BP: 00/00 mm Hg. * Examination: ???General Examination: ?GENERAL APPEARANCE:?pleasant, well nourished, well developed, in no acute distress.?EYES:?sclera non-icteric.?ORAL CAVITY:?mucosa moist.?NECK/THYROID:?no cervical lymphadenopathy, neck supple.?SKIN:?nonjaundiced, no spider angiomata.?HEART:?S1, S2 normal.?LUNGS:?clear to auscultation bilaterally.?ABDOMEN:?normal bowel sounds, no guarding or rigidity, no guarding or rigidity, no masses palpable, soft, nontender, nondistended.?EXTREMITIES:?no edema.?NEUROLOGIC:?alert and oriented.? Assessment: * Assessment: 1.?Gastrointestinal anastomo tic stricture - K91.30 (Primary)?2.?Personal history of colon cancer - Z85.038? Overall, Max appears quit e well. We did review the findings on his colonoscopy from November. He remains completely asymptomatic in regard to the anastomotic stricture. Given the negative exam and his age I advised him that I do not think he will need any further screening colonoscopies despite the previous history of colon cancer. However, I did advise him that he would definitely need to call me if he begins to develop any constipation or bleeding in which case we would want to repeat a colonoscopy to reassess the anastomotic stricture and to rule out any other problems such as polyps. However, if things remain as stable as they presently are, he would then just See me on a p.r.n. basis. Max was very comfortable with this plan. Thank you again for allowing me to have participated in Max's care. Please do not hesitate to contact me if I can be of any further assistance in the future. Plan: * Treatment: * Procedure Codes:?1036F TOBAC CO NON-[id number] BP SCR NOT PRFRM REC REASON NOS * Preventive Medicine:? ??Counseling:?Care goal follow-up plan:?Above Normal BMI Follow-up?Giving encouragement to exercise,?BMI management provided?Yes.? ??Screenings:?Fall Risk Screening?Fall Risk Assessment:?No falls in the past year,?Screening:?No falls in the past year,?Assessment:?Not performed, no reason specified,?Plan of Care:?Not documented, no reason specified.? * Follow Up:?prn * * Sign off status: Completed true * Provider:?Max Elliott MD Date:? 024 Generated for Jerri breaux/Chance/Anibalitting on:?10/25/2024 07:25 AM EDT History and Physical Notes * HPI (History of Present Illness) Category Sub-Category Detail Notes Category Not es incontinence I saw Max in followup today in regard to his personal history of colon cancer and anastomotic stricture. I last saw Max in November, at which time he underwent a followup colonoscopy in regard to the previous history of the obstructing colon cancer. The colonoscopy revealed an anastomotic stricture that would not allow passage of the scope. Interestingly, he was asymptomatic at that time. The stricture was dilated with a large balloon with good results. I was able to pass it with the colonoscope and the remainder of the colonoscopy was completely normal and without any sign of polyps or other abnormalities. Since that procedure he has been feeling well. His bowel movements have remained regular and without any sign of bleeding. He enjoys a good appetite and denies any significant heartburn or dysphagia. He denies abdominal pain, abdominal distention, jaundice, nor weight loss. Examination Category Sub-Category Detail Notes Category Not es General Examination GENERAL APPEARANCE: pleasant , well nourished, well developed, in no acute distress HEAD: EYES: sclera non-icteric EARS: NOSE: THROAT: NECK/THYROID: no cervical lymphade nopathy, neck supple HEART: S1, S2 normal CHEST: LUNGS: clear to auscultatio n bilaterally ABDOMEN: normal bowel sounds, no guarding or rigidity, no guarding or rigidity, no masses palpable, soft, nontender, nondistended NEUROLOGIC: alert and oriented SKIN: nonjaundiced, no spi zehra angiomata EXTREMITIES: no edema PERIPHERAL PULSES: BACK: BREASTS: MUSCULOSKELETAL: MALE GENITOURINARY: LYMPH NODES: RECTAL EXAM: FEMALE GENITOURINARY: ORAL CAVITY: mucosa moist
--- OUTSIDE RECORDS SUMMARY | 2024-10-25 07:25 | XMS_ITS ---
Author Organization [facility] Address [address] [place] [phone] Care Team Providers Care Seo Manager Name Role Phone Abdias WEATHERS, Keron Primary Care Provider Unavailab Max Resendez Unavailable [phone] REASON FOR VISIT screening,hx colon cancer, hx polyps, malignant neoplasm splenic flexure Problems Problem Type SNOMED Code ICD Code Onset Dates Problem Status W/U Status Risk Notes Problem Personal history of other malignant neoplasm of large intestine (Z85.038) Active confirmed Problem History of polyp of colon (situation) (216349981) Personal history of colonic polyps (Z86.010) Active confirmed Encounters Encounter Location Date Provider [place] [facility] [place] [address] [place] [phone] 11/27/2023 Max Elliott Encounter for scre ening [...] MAX WATERMAN WDOB: 6 (89 yo M)Acc No.[id number]:11/27/2023 COLON WITH MAC Patient:?MAX WATERMAN Provider:?Max Elliott MD :1935???Age:88 Y???Sex:Male Bhupendra e:11/27/2023 Address:[address] [place], [place] [id number] Pcp:Keron Calero MD Subjective: * Chief Complaints: * ???1. Screening,hx colon can cer, hx polyps, malignant neoplasm splenic flexure. * Medical History:? Objective: * Vitals:? Assessment: * Assessment: 1.?Encounter for screening c olonoscopy - Z12.11 (Primary)???2.?Personal history of other malignant neoplasm of large intestine - Z85.038???3.?Personal history of colonic polyps - Z86.010???4.?Other partial intestinal obstruction - K56.690???5.?Diverticulosis of large intestine without perforation or abscess without bleeding - K57.30???6.?Other hemorrhoids - K64.8??? Plan: * Treatment: * Procedure Codes:?86336 COLON OSCOPE DILATE STRICTURE, Modifiers: 33 * * The named appointment provid er may or may not be the originator of this progress note, and it is not deemed complete until electronically signed by the appointment provider. Sign off status: Pending * Provider:?Max Elliott MD Date:? 024 Generated for Jerri breaux/Chance/eTransmitting on:?10/25/2024 07:24 AM EDT
--- OUTSIDE RECORDS SUMMARY | 2024-10-25 07:25 | XMS_ITS | Continuity of Care Document ---
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 [facility] [...] MOUTH DAILY ORAL ACTIVE JOAN MANCUSO 2011 [facility] ASPIRIN 81MG TAB,EC TAKE ONE TABLET BY MOUTH DAILY ORAL ACTIVE [facility]ANCUSO [facility] FAMOTIDINE 40MG TAB TAKE ONE TABLET BY MOUTH EVERY EVENING ORAL ACTIVE JOAN MANCUSO 2011 [facility] LISINOPRIL 2.5MG TAB TAKE ONE TABLET BY MOUTH DAILY ORAL ACTIVE VANWAGNER ,JOAN Melvin 2016 [facility] MAGNESIUM OXIDE TAB TAKE 500MG BY MOUTH DAILY ORAL ACTIVE VANWAGNER ,JOAN Melvin 2011 [facility] MULTIVITAMI NS W/MINERALS TAB TAKE ONE TABLET BY MOUTH DAILY ORAL ACTIVE VANWAGNER ,JOAN Melvin 2011 [facility] OTHER CAP/TAB TAKE ICAPS ACTIVE VANWAGNER ,JOAN Melvin 2013 [facility] OTHER CAP/TAB OSTEOBIF NANY oral DAILY ACTIVE VANWAGNER ,JOAN Melvin 2011 [facility] SIMVASTATIN 40MG TAB TAKE ONE-HALF TABLET BY MOUTH AT BEDTIME ORAL ACTIVE VANWAGNER ,JOAN Melvin 2011 [facility] VITAMIN D3 (CHOLECALCI FEROL) TAB TAKE 500MG BY MOUTH DAILY ORAL ACTIVE VANWAGNER ,JOAN Melvin 2016 [facility] Immunizations Combined list of available immunizations from the Department of Defense and Veterans Affairs facilities. Immunization Series Date Given Administered By Site Reaction Lot Number CVX Code Drug Transmission Mechanic Status Comments Source INFLUENZA, SEASONAL, INJECTABLE 2018 141 complet ed [place] [facility] INFLUENZA, SEASONAL, INJECTABLE 2017 141 complet ed [facility] INFLUENZA, SEASONAL, INJECTABLE 2016 141 complet ed [facility] PNEUMOCOCCAL CONJUGATE PCV 13 [address] Calero [facility] FLU,3 YRS (HISTORICAL) 2014 88 complet ed [facility] FLU,3 YRS (HISTORICAL) 2013 88 complet ed [facility] FLU,3 YRS (HISTORICAL) 2012 88 complet ed [facility] ZOSTER (HISTORICAL) [...] FORMULATION [address] Calero [facility] PNEUMOCOCCAL, UNSPECIFIED FORMULATION 2008 109 complet ed [facility] Social History Combined list of available smoking, tobacco, and other social history from Department of Defense and Veterans Affairs facilities. Social History Type Response Date Comment Source Tobacco smoking status [facility]-TOBACCO FORMER USER 05/18/2018 [facility] History of tobacco use [facility]TOBAC[facility] QUIT 15 YRS OR MORE 05/18/2018 [facility] History of tobacco use QUIT TOBACCO USE > 7 YEARS AGO 05/12/2017 [facility] History of tobacco use QUIT TOBACCO USE > 7 YEARS AGO 05/26/2015 STOPPED IN 1966 [facility] History of tobacco use LIFETIME NON-TOBACCO USER 03/22/2012 [facility]
--- OUTSIDE RECORDS SUMMARY | 2024-10-25 07:25 | XMS_ITS ---
Author Organization Misha Moncada III, MD Address [address] [place] [address] Care Team Providers Care Appliance Service Technician Name Role Phone Abdias WEATHERS, Keron Primary Care Provider Unavailab Misha Morris Unavailable [phone] Allergies Allergen (clinical drug ingredient) Drug/Non Drug Allergy documented on EMR Reaction Allergy Type Onset Date Status No Known Drug Allergy Unknown Drug Allergy Active REASON FOR VISIT Colon cancer, Benign prostatic hypertrophy, Spinal stenosis, COPD, GERD, Sleep apnea, Hypertension,Hyperlipidemia, Vertigo Medications Medication SIG (Take, Route, Fr equency, Duration) Notes Start Date End Date Status Lisinopril 2.5 MG TAKE 1 TABLET BY SHANTHI TH ONCE EVERY DAY DIRECTED Oral Active Simvastatin 20 MG TAKE 1 TABLET BY MOUTH DAILY Oral Active Famotidine 40 MG TAKE 1 TABLET BY SHANTHI TH EVERY DAY AT SUPPER TIME Oral Active Social History Tobacco Use: Social History Observation Description Date Details (start date - stop date) Former Smoker NA - NA Tobacco Use/Smoking Question Answer Notes Patient is a former smoker How long has it been since you last smoked? > 10 years Additional Findings: Tobacco Non-User Ex-cigaret te smoker Vital Signs Temperature 98.1 degrees Fahrenheit 05/11/20 23 Blood pressure systolic 146 mm Hg 05/11/20 23 Blood pressure diastolic 70 mm Hg 023 Heart Rate 67 /min 05/11/2023 Height 5 ft 11 in in 05/11/2023 Weight 193 lbs 05/11/2023 BMI 26.92 kg/m2 05/11/2023 Encounters Encounter Location Date Provider Diagnosis Misha Moncada III, MD [address] [place] [address] [place] [address] 05/11/2023 Misha Coral Colon cancer C18.9 ; COPD (chronic obstructive pulmonary disease) J44.9 ; Sleep apnea G47.30 ; BPH (benign prostatic hyperplasia) N40.0 ; GERD (gastroesophageal reflux disease) K21.9 ; Benign paroxysmal vertigo, unspecified ear H81.10 ; HTN (hypertension) I10 and Mixed hyperlipidemia E78.2 Assessments Encounter Date Diagnosis (ICD Code) Assessment Notes Treat ment Notes Treatment Clinical Notes 05/11/2023 Colon cancer (ICD-10 - C18.9) There is no sign of recurrent colon cancer on his exam or a new primary He seems healthy and well for a man his age. 05/11/2023 COPD (chronic obstructive pulmonary disease) (ICD-10 - J44.9) He is comfortable breathing room air today. I encouraged him to notify primary care if he begins to deteriorate. 05/11/2023 Sleep apnea (ICD-10 - G47.30) He has a CPAP machine and is using it. 05/11/2023 BPH (benign prostati c hyperplasia) (ICD-10 - N40.0) His prostatism is stable. We discussed lifestyle modification as a way of reducing nocturia. 05/11/2023 GERD (gastroesophageal reflux disease) (ICD-10 - K21.9) His esophageal reflux symptoms are well controlled with odxv-sry-dsrzxai medication and no change in his regimen as needed. 05/11/2023 Benign paroxysmal vertigo, unspecified ear (ICD-10 - H81.10) This is an occasional problem with him, but is not present today. 05/11/2023 HTN (hypertension) (ICD-10 - I10) All his blood pressure is 120/70. No change in his regimen as needed. 05/11/2023 Mixed hyperlipidemia (ICD-10 - E78.2) His lipids are being checked periodically. No change in his regimen was needed. Plan Of Treatment Medication Medication Name Sig Start Date Stop Date Notes Lisinopril 2.5 MG TAKE 1 TABLET BY SHANTHI TH ONCE EVERY DAY DIRECTED Oral Simvastatin 20 MG TAKE 1 TABLET BY MOUTH DAILY Oral Famotidine 40 MG TAKE 1 TABLET BY SHANTHI TH EVERY DAY AT SUPPER TIME Oral Next Appt Details Follow Up: 3 Months, Reason: ov Provider Name:Misha Moncada, 01/09/2025 10:30:00 AM, [address] [place] [address] [address], [place], [phone], Progress Notes * Misha MARTINEZ WDOB: [birth year] (87 yo M)Acc No.[id number]:05/11/2023 Progress Notes Patient:?Misha Martinez Provider:?Misha Moncada MD :1935???Age:87 Y???Sex:Male Bhupendra e:05/11/2023 Address:[address] [place], [place] [phone] Pcp:Keron Calero MD Subjective: * Chief Complaints: * ???Colon cancerBenign prosta tic hypertrophySpinal stenosisCOPDGERDSleep apneaHypertensionHyperlipidemiaVertigo * HPI: ???COVID-19 Screening:?Questions?Have you experienced fever, chills, cough, sore throat, shortness of breath, difficulty breathing, muscle aches, loss of taste or smell??No ?Have you been exposed to the virus within the last 10 days??No ?Have you travelled internationally in the last 10 days??No ?Have you been exposed to COVID-19 in the past??No ? colon surg 06/27/2022 pt4.. He returns in follow-up of a history of colon cancer. The ttumor was resected from his: June 27, 2022. He has been in remission. He had no symptoms today suggestive of relapse. He denies abdominal pain, weight loss, anorexia or bleeding. He is taking no new meddicationns. No sign of recurrent cancer was found on today's examination. * ROS:?General/Constitutional:?pain?only normal aches and pains.?Chills?denies.?Fatigue?admits.?Fever?denies.?ENT:?Decreased hearing?in both ears.?Respiratory:?Cough?denies.?Cardiovascular:?Chest pain with exertion?denies.?Dyspnea on exertion?denies.?Shortness of breath?denies.?Gastrointestinal:?Constipation?denies.?Decreased appetite?denies.?Diarrhea?denies.?Heartburn?denies.?Nausea?denies.?Rectal bleeding?denies.?Vomiting?denies.?Hematology:?bruising?denies.?petechiae?denies.?Swollen glands?none have been noted.?Genitourinary:?Frequent urination?twice a night.?Musculoskeletal:?Muscle aches?denies.?Painful joints?denies.?Sciatica?denies.?Weakness?denies.?Skin:?Itching?denies.?Rash?denies.?Skin lesion(s)?denies.?Neurologic:?Difficulty speaking?denies.?Dizziness?denies.?Headache?denies.?Low back pain?denies.?Psychiatric:?Depressed mood?denies.? * Medical History:? * Surgical History:?C 5/6 Disk Surgery 1995Left foot surgery 2006TURP 2007TUNA 2008Prostate TURP 2009Appendectomy 1954hemicolectomy 07/04 * Hospitalization/Major Diagno stic Procedure:?Denies Past Hospitalization * Family History:?Father: dece ased, prostate cancer, diagnosed with Cancer.?Mother: , Heart attack.?Siblings: , diagnosed with Cancer.?3 brother(s) . 1 son(s) , 2 daughter(s) - healthy. .? A twin brother of a ruptured appendix. Two brothers have had brain tumors. He is not aware of any family history of substance use disorder and addiction. His children are healthy and well. * Social History:?Tobacco Use:?Tobacco Use/Smoking?Patient is a?former smoker ?How long has it been since you last smoked??> 10 years ?Additional Findings: Tobacco Non-User?Ex-cigarette smoker ???He lives in [place], [place]. His one year ago. His children are healthy and well. He is retired. He has no voodoo objection to blood transfusion. * Medications:?TakingSimvastat in 20 MG Tablet TAKE 1 TABLET BY [...] reviewed and reconciled with the patient * Allergies:?No Known Drug All ergyno[Allergies Verified] Objective: * Vitals:?Ht: 5 ft 11 in, Wt:1 93, BMI:26.92, BP:146/70, HR:67, Temp:98.1, Ht-cm: 180.34, Wt-k.54. * Examination: ???General Examination: ?GENERAL APPEARANCE:?pleasant, well nourished, well developed, in no acute distress, calm and relaxed , overweight , elderly man.?HEAD:?atraumatic, normocephalic.?EYES:?eomi, perrla, anicteric, conjugate.?EARS:?normal.?NOSE:?septum intact.?ORAL CAVITY:?normal, unremarkable.?NECK/THYROID:?no jugular venous distention, no carotid bruit, thyroid normal.?LYMPH NODES:?no enlarged lymph nodes,spleen normal.?SKIN:?no suspicious lesions, anicteric.?HEART:?no clicks, gallops, murmurs, or rubs, regular rhythm, S1, S2 normal, no s3, or vascular bruits.?LUNGS:?clear to auscultation .?BREASTS:??no masses palpable bilaterally.?ABDOMEN:?bowel sounds normal, no ascites, no organomegaly, no mass , overweight.?RECTAL EXAM:?not examined.?MUSCULOSKELETAL:?extremities unremarkable, no clubbing, cyanosis or edema.?PERIPHERAL PULSES:?normal.?NEUROLOGIC:?alert and oriented, cranial nerves 2-12 grossly intact, deep tendon reflexes 2+ symmetrical, motor strength normal upper and lower extremities, sensory exam intact.?PSYCH:?alert, oriented.? Assessment: * Assessment: 1.?COPD (chronic obstructive pulmonary disease) - J44.9, He is comfortable breathing room air today. I encouraged him to notify primary care if he begins to deteriorate.?2.?Colon cancer - C18.9, There is no sign of recurrent colon cancer on his exam or a new primary He seems healthy and well for a man his age.?3.?Sleep apnea - G47.30, He has a CPAP machine and is using it.?4.?BPH (benign prostatic hyperplasia) - N40.0, His prostatism is stable. We discussed lifestyle modification as a way of reducing nocturia.?5.?GERD (gastroesophageal reflux disease) - K21.9, His esophageal reflux symptoms are well controlled with jtrh-qld-yjoytzd medication and no change in his regimen as needed.?6.?Benign paroxysmal vertigo, unspecified ear - H81.10, This is an occasional problem with him, but is not present today.?7.?HTN (hypertension) - I10, All his blood pressure is 120/70. No change in his regimen as needed.?8.?Mixed hyperlipidemia - E78.2, His lipids are being checked periodically. No change in his regimen was needed.? Plan: * Treatment: * Procedure Codes:? * Preventive Medicine:? ??Counseling:?Care goal follow-up plan:?Counseling for abnormal BMI given?Yes ?Above Normal BMI Follow-up?Dietary management education, guidance, and counseling, Dietary needs education, Exercise promotion: strength training, Exercise promotion: stretching, Feeding regime, Giving encouragement to exercise, Lifestyle education regarding diet, Nutrition / feeding management, Nutrition therapy, Prescribed activity/exercise education, Prescribed diet education, Prescribed dietary intake, Special diet education, Weight monitoring , Intervention, Order not done: Medical or Other reason not done ?Smoking/Tobacco Use?Patient counseled on the dangers of tobacco use and urged to quit.?05/11/2023 ??COPD Care Plan:?Patient Lifestyle Goals?Be able to be more active with friends and family, Reduce number of ED and hospitalizations, Relieve symptoms and improve quality of life.?Treatment Goals?Eat a nutritious diet and increase water consumption to 6-8 glasses a day, Exercise to help whole body, including lungs.?Barriers?no barriers.?Self-Managment Goals?Eat a healthy diet, Get an air purifier for the rooms you are in the most.? * Follow Up:?3 Months (Reason: ov) * Images: * Sign off status: Completed true * Provider:?Misha Moncada MD Date:?04/14 Generated for Jerri breaux/Chance/eTransmitting on:?10/25/2024 07:24 AM EDT History and Physical Notes * HPI (History of Present Illness) Category Sub-Category Detail Notes COVID-19 Screening Questions Have you had any new onset fever, chills, cough, congestion, sore throat, shortness of breath, muscle aches?: No Have you been exposed to the virus withi n the last 10 days?: No Have you travelled internationally in [facility] last 10 days?: No Have you been [...]
--- OUTSIDE RECORDS SUMMARY | 2024-10-25 07:25 | XMS_ITS | Patient Health Record ---
Author Organization [facility] Address [address] [place] [address] Care Team Providers Care Civil Engineering Specialist Name Role Phone Keron Calero MD Primary Care Provider Unavailab Max Resendez Unavailable [phone] Allergies No Known Allergies Reason For Referral No Information Medications Medication SIG (Take, Route, Frequency, Duration) Notes Start Date End Date Status Famotidine 40 MG TAKE 1 TABLET BY SHANTHI TH EVERY DAY AT SUPPER TIME Oral for 90 Active Vitamin C 1000 MG 1 tablet Orally Once a day for 30 day(s) Active Multivitamin Adult - 1 tablet Orally Onc e a day for 30 day(s) Active Move Free Joint Health Advance - as directed Orally Active Magnesium 400 MG as directed Orally Active Vitamin D3 50 MCG (1999) 1 tablet Ora lly Once a day for 30 day(s) Active Lisinopril 2.5 MG TAKE 1 TABLET BY SHANTHI TH ONCE EVERY DAY DIRECTED Oral for 90 Active Simvastatin 20 MG TAKE 1 TABLET BY SHANTHI TH DAILY Oral for 90 Active Immunizations Vaccine Route Administration Date Status Comme nts Influenza Unknown 02/10/2022 Administered Social History Tobacco Use: Social History Observation [...] Negative Section Notes: Nonsmoker; no sig alcohol Nonsmoker; no sig alcohol Nonsmoker; no sig alcohol Problems Problem Type SNOMED Code ICD Code Onset Dates Problem Status W/U Status Risk Notes Problem Colon cancer screening (544478215) Colon cancer screening (Z12.11) Active confirmed Problem History of polyp of colon (situation) (240268675) Personal history of colonic polyps (Z86.010) Active confirmed Problem 35186458 Change in bowel habits (R19.4) Active confirmed Problem Malignant tumor of splenic flexure (704487800) 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) Active confirmed Problem Diverticular disease of colon (710084743) Diverticulosis of large intestine without perforation or abscess without bleeding (K57.30) Active confirmed Problem Long-term current use of antiplatelet drug (733348641694150) FDC (current) use of aspirin (Z79.82) Active confirmed Problem Personal history of other malignant neoplasm of large intestine (Z85.038) Active confirmed Problem History of polyp of colon (133312975) History of colon polyps (Z86.010) Active confirmed Problem 332581550 Abnormal CT scan , colon (R93.3) Active confirmed Problem History of malignant neoplasm of colon (922238797) Personal history of colon cancer (Z85.038) Active confirmed Problem Gastrointestinal anastomotic stricture (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) 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 Vital Signs Blood pressure diastolic 00 mm Hg 05/07/2024 Height 71 in 05/07/2024 Blood pressure systolic 00 mm Hg 05/07/2024 Weight 185 lbs 05/07/2024 BMI 25.80 kg/m2 05/07/2024 Encounters Encounter Location Date Provider Diagnosis [facility] [address] [place] [id number] 11/27/2023 Max Elliott Encounter for screen ing colonoscopy Z12.11 ; Personal history of other malignant neoplasm of large intestine Z85.038 ; Personal history of colonic polyps Z86.010 ; Other partial intestinal obstruction K56.690 ; Diverticulosis of large intestine without perforation or abscess without bleeding K57.30 and Other hemorrhoids K64.8 [facility] [address] [place] [phone] 05/07/2024 Max Elliott Personal history of colon cancer Z85.038 and Gastrointestinal anastomotic stricture K91.30 [facility] [address] [place] [phone] 11/30/2023 Max Elliott Assessments Encounter Date Diagnosis (ICD Code) Assessment Notes Treatment Notes Treatment Clinical Notes Section Notes 11/27/2023 Encounter for screening colonoscopy (ICD-10 - Z12.11) 11/27/2023 Personal history of other malignant neoplasm of large intestine (ICD-10 - Z85.038) 05/07/2024 Personal history of colon cancer (ICD-10 [...] of any further assistance in the future. 11/27/2023 Personal history of colonic polyps (ICD-10 - Z86.010) 11/27/2023 Other partial intestinal obstruction (ICD-10 - K56.690) 11/27/2023 Diverticulosis of large intestine without perforation or abscess without bleeding (ICD-10 - K57.30) 11/27/2023 Other hemorrhoids (ICD-10 - K64.8) Plan Of Treatment Future Test Test Name Order Date COLONOSCOPY 06/16/2022 COLONOSCOPY 08/29/2023 Insurance Providers Payer Name Payer Address Payer Phone Subscriber Number Group Number Insured Name Patient Relationship to Insured Coverage Start Date Coverage End Date [facility] [address] [place] [phone] [id number] MAX WATERMAN Self - patient is the insured Medical (General) History Medical History History ICD Code Hypertension Denies OR,DM,CVA,Lung disease,renal dise ase Hyperlipidemia Screening colonoscopy in 4 with removal of a small tubular adenoma; negative followup screening colonoscopy in 2009 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 He was not symptomatic but I could not get the scope past it so I dilated it up to a 15 mm balloon with good results. The entire colonoscopy was otherwise normal and without any sign of polyps. Surgical History Surgery Date(Month/Year) Appendectomy C-spine Left colectomy 06/2022 for co tiana cancer-Dr. Rizvi and Dr. Moncada-no chemo
--- OUTSIDE RECORDS SUMMARY | 2024-10-25 07:25 | XMS_ITS | Patient Health Record ---
Author Organization Misha Moncada III, MD Address [address] [place] [address] Care Team Providers Care Manager Game Name Role Phone Abdias WEATHERS, Keron Primary Care Provider UnavailMisha Greene Unavailable [phone] Allergies Allergen (clinical drug ingredient) Drug/Non Drug Allergy documented on EMR Reaction Allergy Type Onset Date Status No Known Drug Allergy Unknown Drug Allergy Active Results Component Value Reference Range Notes Complete Blood Count Auto Di ff Reviewed date:01/02/2024 05:02:46 PM Interpretation: Performing Lab:[facility], [address] [place] [id number] Notes/Report: White Blood Count 5.8 4.8-10.8 X10*3/uL Red Blood Count 4.30 4.60-5.80 X10*6/uL Hemoglobin 14.1 14.0-18.0 g/dl Hematocrit 42.3 42.0-52.0 % Mean Corpuscular Volume 98.4 80.0-98.0 fL Mean Corpuscular Hemoglobin 32.8 27.0-33.0 pg Mean Corpuscular HGB Conc 33.3 31.0-36.0 g/dl Red Cell Distribution Width 12.7 11.0-16.0 % Platelet Count 235 160-400 X10*3/uL Mean Platelet Volume 9.3 9.4-12.4 fL Neutrophils Percent Auto 44.0 45-73 % Imm Gran Pct Auto 0.2 0.0-0.4 % Lymphocytes Percent Auto 41.2 20-40 % Monocytes Percent Auto 9.8 2-11 % Eosinophils Percent Auto 4.3 0-4 % Basophils Percent Auto 0.5 0-2 % NRBC Pct Auto 0.0 0.0-0.2 /100WBC Neutrophils Absolute Auto 2.6 2.0-8.3 x10*3/u L Imm Gran Abs Auto 0.01 0.00-0.03 X10*3/uL Lymphocytes Absolute Auto 2.4 1.2-4.9 X10*3/u L Monocytes Absolute Auto 0.6 0.1-1.2 X10*3/uL Eosinophils Absolute Auto 0.3 0.0-0.4 X10*3/u L Basophils Absolute Auto 0.0 0.0-0.2 X10*3/uL NRBC Abs Auto 0.000 0.0-0.012 X10*3/uL Comprehensive Monument. Panel Fa Reviewed date:01/02/2024 05:02:46 PM Interpretation: Performing Lab:[address] [phone] Notes/Report: Sodium 140 135-145 mmol/L Potassium 4.6 3.3-5.1 mmol/L Chloride 105 96-108 mmol/L Carbon Dioxide 27 22-29 mmol/L Anion Gap 13 12-20 Blood Urea Nitrogen 16 9-16 mg/dL Creatinine 0.79 0.5-1.4 mg/dL Estimated Glomerular Filt Rate > 60 NOTE: For -[place] individuals, multiply the result by 1.210. Chronic Kidney Disease: Estimated GFR < 60 mL/min/1.73m2 Severe Kidney Disease: Estimated GFR < 15 mL/min/1.73m2 Glucose Fasting 84 60-99 mg/dL Calcium 10.2 8.4-10.2 mg/dL Bilirubin Total 0.7 0.0-1.0 mg/dL Aspartate Amino Transferase 27 5-37 U/L Alanine Aminotransferase 20 0-40 U/L Total Protein 7.6 6.5-8.0 g/dL Albumin Level 4.3 3.5-5.0 g/dL Alkaline Phosphatase 64 39-117 U/L Lipid Panel Reviewed date:01/02/2024 05:02:46 PM Interpretation: Performing Lab:[facility], [address] [place] [phone] Notes/Report: Triglycerides 65 <150 mg/dL Desirable Triglyceride: less than 150 mg/dL Borderline High Triglyceride 150-199 mg/dL High Triglyceride: 200-499 mg/dL Very High Triglyceride: greater than or equal to 5OO mg/dL Cholesterol 140 <200 mg/dL Desirable Cholesterol: less than 200 mg/dL Borderline High Cholesterol: 200-239 mg/dL High Cholesterol: greater than 239 mg/dL LDL Cholesterol Calculated 67 <100 mg/dL Desirable LDL: less than 100 mg/dL Near Optimal/Above Optimal LDL: 110-129 mg/dL Borderline High LDL: 130-159 mg/dL High LDL: 160-189 mg/dL Very High LDL: greater than or equal to 190 mg/dL HDL Cholesterol 60 >40 mg/dL Desirable HDL: greater than 40 mg/dL Note: This HDL assay may give artificially low results in patients with liver disease. Prostate Specific Antigen Reviewed date:01/02/2024 05:02:46 PM Interpretation: Performing Lab:[facility], [address] [place] [phone] Notes/Report: Prostate Specific Antigen 0.12 <0.05-4.0 ng/mL PSA methodology: Omnicademynity i Chemiluminescent Microparticle Immunoassay (CMIA) Reason For Referral No Information Medications Medication SIG (Take, Route, Fr equency, [...] Problem Status W/U Status Risk Notes Problem 9713279 Former smoker (Z87.891) Active confirmed We have made a plan to prevent relapse in times of stress and illness. Problem Spinal stenosis (52020195) Spinal stenosis (M48.00) Active confirmed His back pain is present but mild today and chronic. He is being treated for this by primary care. Problem 282445443 Overweight (E66.3) Active confirmed He is a very slightly overweight. I recommended to stabilizing his weight at this level through a healthy Mediterranean diet and intermittent exercise. Problem Gastroesophageal reflux disease (757256969) GERD (gastroesophage al reflux disease) (K21.9) Active confirmed His esophageal reflux symptoms are well controlled with [id number] er medication and no change in his regimen as needed. Problem 047553593 Mixed hyperlipidemia (E78.2) Active confirmed His body mass index is 27. We discussed the elements of a weight reduction low animal fat diet. 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 He is driving without accidents. Problem Benign paroxysmal positional vertigo (513492761) Benign paroxysmal vertigo, unspecified ear (H81.10) Active confirmed This is an occasional problem with him, but is not present today. Problem Tinnitus of left ear (2470872984116) Tinnitus, left ear (H93.12) Active confirmed This complaint is unchanged since last visit. He is adapting to it. He declined an offer a referral to ENT. Problem Hypertension (29692671) HTN (hypertension) (I10) Active confirmed All his blood pressure is 120/70. No change in his regimen as needed. Problem Benign prostatic hyperplasia (426811537) BPH (benign prostatic hyperplasia) (N40.0) Active confirmed He rises from sleep once or twice a night to urinate. We have discussed lifestyle modification as way to reduce nocturia. Problem COPD - Chronic obstructive pulmonary disease (87448088) COPD (chronic obstructive pulmonary disease) (J44.9) Active confirmed He is comfortable breathing room air today. I encouraged him to notify primary care if he begins to deteriorate. Problem Carpal tunnel syndrome (96287651) Carpal tunnel syndrome (G56.00) Active confirmed He denies any significant pain in his hands at this time. Problem Thyroid nodule (874624733) Thyroid nodule (E04.1) Active confirmed Problem Osteoarthritis (773692180) Osteoarthritis (M19.90) Active confirmed Problem Sleep apnea (81661742) Sleep apnea (G47.30) Active confirmed He has a CPAP machine and is using it. 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 Vital Signs Heart Rate 70 /min 01/09/2024 Temperature 97.2 degrees Fahrenheit 01/09/2024 Blood pressure diastolic 59 mm Hg 01/09/2024 Height 71 in 01/09/2024 Blood pressure systolic 124 mm Hg 01/09/2024 Weight 188 lbs 01/09/2024 BMI 26.22 kg/m2 01/09/2024 Encounters Encounter Location Date Provider Diagnosis Misha Moncada III, MD [address] [place] [address] [address], [place] [phone] 01/09/2024 Misha Moncada Colon cancer C18.9 ; Overweight E66.3 ; BPH (benign prostatic hyperplasia) N40.0 ; Spinal stenosis M48.00 ; COPD (chronic obstructive pulmonary disease) J44.9 ; Sleep apnea G47.30 and Former smoker Z87.891 Assessments Encounter Date Diagnosis (ICD Code) Assessment Notes Treatment Notes Treatment Clinical Notes 01/09/2024 Overweight (ICD-10 - E66.3) He is a very slightly overweight. I recommended to stabilizing his weight at this level through a healthy Mediterranean diet and intermittent exercise. 01/09/2024 Colon cancer (ICD-10 - C18.9) There is no sign of recurrent colon cancer on his exam or a new primary He seems healthy and well for a man his age. 01/09/2024 BPH (benign prostatic hyperplasia) (ICD-10 - [...] of stress and illness. Plan Of Treatment Pending Test Test Name Order Date PROFILE, FASTING (COMPREHENSIVE METABOLI C) 09/07/2023 PSA, TOTAL 09/07/2023 CBC WITH AUTO DIFF 09/07/2023 Lipid Panel 09/07/2023 Next Appt Details Provider Name:Misha Moncada, 01/09/2025 10:30:00 AM, [address] [place] [address] [address], [place], [address], Insurance Providers Payer Name Payer Address Payer Phone Subscriber Number Group Number Insured Name Patient Relationship to Insured Coverage Start Date Coverage End Date [facility] [address] [place] [employer] [address] [facility] [phone] [id number] Misha Martinez Self - patient is the insured MEDICARE NGS [address] [place] [phone] [id number] Misha Martinez Self - patient is the insured Medical (General) History Medical History History ICD Code 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, left colon BPH (benign prostatic hyperplasia) N40.0 Unspecified visual field defects H53.40 Tinnitus, left ear H93.12 Spinal stenosis M48.00 GERD (gastroesophageal reflux disease) K 21.9 Osteoarthritis M19.90 COPD (chronic obstructive pulmonary dise ase) J44.9 Sleep apnea G47.30 Carpal tunnel syndrome G56.00 PVC (premature ventricular contraction) I49.3 Benign paroxysmal vertigo, unspecified e ar H81.10 Ataxia R27.0 HTN (hypertension) I10 Thyroid nodule E04.1 Hyperlipidemia History of diverticulitis Surgical History Surgery Date(Month/Year) hemicolectomy 07/04 Appendectomy 1953 Prostate TURP 2008 TUNA 2007 TURP 2006 Left foot surgery 2005 C 5/6 Disk Surgery 1994
--- OUTSIDE RECORDS SUMMARY | 2024-10-25 07:26 | XMS_ITS ---
Author Organization [facility] Address [address] [place] [address] Care Team Providers Care Automotive Service Porter Name Role Phone Abdias WEATHERS, Keron Primary Care Provider Unavailab Max Resendez Unavailable [phone] REASON FOR VISIT lips burning Encounters Encounter Location Date Provider Diagnosis [facility] [address] [place] [address] 11/30/2023 Max Elliott Plan Of Treatment No Information Progress Notes * MAX WATERMAN WDOB: 6 (88 yo M)Acc No.[id number]:11/30/2023 Patient:?MAX WATERMAN :1935???Age:88 Y???Sex:Male Address:[address] [place] [address] * true * Date:? Generated for Vincenzoi namita/Chance/eTransmitting on:?10/25/2024 07:25 AM EDT
--- OUTSIDE RECORDS SUMMARY | 2024-10-25 07:26 | XMS_ITS ---
Author Organization Misha Moncada III, MD Address [address] [place] [address] Care Team Providers Care Sticker On Name Role Phone Abdias WEATHERS, Keron Primary Care Provider Unavailab Misha Morris Unavailable [phone] Allergies Allergen (clinical drug ingredient) Drug/Non Drug [...] Problem Status W/U Status Risk Notes Problem 819832873 Overweight (E66.3) Active confirmed He is a very slightly overweight. I recommended to stabilizing his weight at this level through a healthy Mediterranean diet and intermittent exercise. Problem 3088879 Former smoker (Z87.891) Active confirmed We have [...] Date Provider Diagnosis Misha Moncada III, MD [address] [place] [address] [address], LOYDA [address] 01/09/2024 Misha Moncada Colon cancer C18.9 ; [...] TH EVERY DAY AT SUPPER TIME Oral Lisinopril 2.5 MG TAKE 1 TABLET BY SHANTHI TH ONCE EVERY DAY DIRECTED Oral Simvastatin 20 MG TAKE 1 TABLET BY MOUTH DAILY Oral Next Appt Details Follow Up: 1 Year, Reason: O ffice visit Provider Name:Misha Duvalne, 01/09/2025 10:30:00 AM, [address] [place] [address] [address], [place], [address], Progress Notes * Misha MARTINEZ WDOB: 6 (88 yo M)Acc No.[id number]:01/09/2024 Progress Notes Patient:?Misha Martinez Provider:?Misha Moncada MD :1935???Age:88 Y???Sex:Male Bhupendra e:01/09/2024 Address:[address] [place] [address] [place], [place] [phone] Pcp:Keron Calero MD Subjective: * Chief Complaints: * ???History of colon cancerBe nign prostatic hypertrophySpinal stenosisGERDCOPDSleep apnea * HPI: ???COVID-19 Screening:? He returns for a scheduled visit for [...] no rectal bleeding. He denies abdominal pain. ?Questions?Have you experienced fever, chills, cough, sore throat, shortness of breath, difficulty breathing, muscle aches, loss of taste or smell??No ?Have you been exposed to the virus within the last 10 days??No ?Have you travelled internationally in the last 10 days??No ?Have you been exposed to COVID-19 in the past??No * ROS:?General/Constitutional:?pain?only normal aches and pains.?Chills?denies.?Fatigue?admits.?Fever?denies.?ENT:?Decreased hearing?denies.?Respiratory:?Cough?denies.?Cardiovascular:?Chest pain with exertion?denies.?Dyspnea on exertion?denies.?Shortness of breath?denies.?Gastrointestinal:?Constipation?denies.?Decreased appetite?denies.?Diarrhea?denies.?Heartburn?denies.?Nausea?denies.?Rectal bleeding?denies.?Vomiting?denies.?Hematology:?bruising?denies.?petechiae?denies.?Swollen glands?none have been noted.?Genitourinary:?Frequent urination?denies.?Musculoskeletal:?Muscle aches?denies.?Painful joints?denies.?Sciatica?denies.?Weakness?denies.?Skin:?Itching?denies.?Rash?denies.?Skin lesion(s)?denies.?Neurologic:?Difficulty speaking?denies.?Dizziness?denies.?Headache?denies.?Low back pain?denies.?Psychiatric:?Depressed mood?denies.? [...] Findings: Tobacco Non-User?Ex-cigarette smoker ???He lives in [place], [place]. His one year ago. His children are healthy and well. He is retired. He has no anabaptism objection to blood transfusion. * Medications:?TakingSimvastat in [...] Drug All ergyno[Allergies Verified] Objective: * Vitals:?Ht: 71, Wt:188, BMI: 26.22, BP:124/59, HR:70, Temp:97.2, Ht-cm: 180.34, Wt-k.28. * ???Past Orders: ???Lab:Complete Blood Count Auto Diff (Order Date - 01/02/2024) (Collection Date - 01/02/2024) ? Value Reference Range ?White Blood Count 5.8 4. 8-10.8 - X10*3/uL ?Red Blood Count 4.30 L 4.60 -5.80 - X10*6/uL ?Hemoglobin 14.1 14.0-18.0 - g/dl ?Hematocrit 42.3 42.0-52.0 - % ?Mean Corpuscular Volume 98.4 H 80.0-98.0 - fL ?Mean Corpuscular Hemoglobin 32.8 27.0-33.0 - pg ?Mean Corpuscular HGB Conc 33.3 31.0-36.0 - g/dl ?Red Cell Distribution Width 12.7 11.0-16.0 - % ?Platelet Count 235 160-4 00 - X10*3/uL ?Mean Platelet Volume 9.3 L 9.4-12.4 - fL ?Neutrophils Percent Auto 44.0 L 45-73 - % ?Imm Gran Pct Auto 0.2 0. 0-0.4 - % ?Lymphocytes Percent Auto 41.2 H 20-40 - % ?Monocytes Percent Auto 9.8 2-11 - % ?Eosinophils Percent Auto 4.3 H 0-4 - % ?Basophils Percent Auto 0.5 0-2 - % ?NRBC Pct Auto 0.0 0.0-0. 2 - /100WBC ?Neutrophils Absolute Auto 2.6 2.0-8.3 - x10*3/uL ?Imm Gran Abs Auto 0.01 0. 00-0.03 - X10*3/uL ?Lymphocytes Absolute Auto 2.4 1.2-4.9 - X10*3/uL ?Monocytes Absolute Auto 0.6 0.1-1.2 - X10*3/uL ?Eosinophils Absolute Auto 0.3 0.0-0.4 - X10*3/uL ?Basophils Absolute Auto 0.0 0.0-0.2 - X10*3/uL ?NRBC Abs Auto 0.000 0.0-0. 012 - X10*3/uL ???Lab:Comprehensive [place]. P bren Fast (Order Date - 01/02/2024) (Collection Date - 01/02/2024) ? Value Reference Range ?Sodium 140 135-145 - mmo l/L ?Bilirubin Total 0.7 0.0- 1.0 - mg/dL ?Aspartate Amino Transferase 27 5-37 - U/L ?Alanine Aminotransferase 20 0-40 - U/L ?Total Protein 7.6 6.5-8. 0 - g/dL ?Albumin Level 4.3 3.5-5. 0 - g/dL ?Alkaline Phosphatase 64 39-117 - U/L ?Potassium 4.6 3.3-5.1 - mmol/L ?Chloride 105 96-108 - mm ol/L ?Carbon Dioxide 27 22-29 - mmol/L ?Anion Gap 13 12-20 - ?Blood Urea Nitrogen 16 9-16 - mg/dL ?Creatinine 0.79 0.5-1.4 - mg/dL ?Estimated Glomerular Filt Rate > 60 - ?Glucose Fasting 84 60-9 9 - mg/dL ?Calcium 10.2 8.4-10.2 - m g/dL ???Lab:Prostate Specific Ant igen (Order Date - 01/02/2024) (Collection Date - 01/02/2024) ? Value Reference Range ?Prostate Specific Antigen 0.12 <0.05-4.0 - ng/mL ???Lab:Lipid Panel (Order Da 01/02/2024) (Collection Date - 01/02/2024) ? Value Reference Range ?Triglycerides 65 <150 - mg/dL ?Cholesterol 140 <200 - m g/dL ?LDL Cholesterol Calculated 67 <100 - mg/dL ?HDL Cholesterol 60 >40 - mg/dL * Examination: ???General Examination: ?GENERAL APPEARANCE:?pleasant, well nourished, well developed, in no acute distress, calm and relaxed , overweight , elderly man.?HEAD:?atraumatic, normocephalic.?EYES:?eomi, perrla, anicteric, conjugate.?EARS:?normal.?NOSE:?septum intact.?ORAL CAVITY:?normal, unremarkable.?NECK/THYROID:?no jugular venous distention, no carotid bruit, thyroid normal.?LYMPH NODES:?no enlarged lymph nodes,spleen normal.?SKIN:?no suspicious lesions, anicteric, Purpura on forearms.?HEART:?no clicks, gallops, murmurs, or rubs, regular rhythm, S1, S2 normal, no s3, or vascular bruits.?LUNGS:?clear to auscultation .?BREASTS:??no masses palpable bilaterally.?ABDOMEN:?bowel sounds normal, no ascites, no organomegaly, no mass, Old healed surgical scar.?RECTAL EXAM:?not examined.?MUSCULOSKELETAL:?extremities unremarkable, no clubbing, cyanosis or edema.?PERIPHERAL PULSES:?normal.?NEUROLOGIC:?alert and oriented, cranial nerves 2-12 grossly intact, deep tendon reflexes 2+ symmetrical, motor strength normal upper and lower extremities, sensory exam intact.?PSYCH:?alert, oriented , cognitive function intact , speech clear.? Assessment: * Assessment: 1.?Overweight - E66.3 (Prima ry), He is a very slightly overweight. I recommended to stabilizing his weight at this level through a healthy Mediterranean diet and intermittent exercise.?2. Colon cancer - C18.9, There is no sign of recurrent colon cancer on his exam or a new primary He seems healthy and well for a man his age.?3.?BPH (benign prostatic hyperplasia) - N40.0, He rises from sleep once or twice a night to urinate. We have discussed lifestyle modification as way to reduce nocturia.?4.?Spinal stenosis - M48.00, His back pain is present but mild today and chronic. He is being treated for this by primary care.?5.?COPD (chronic obstructive pulmonary disease) - J44.9, He is comfortable breathing room air today. I encouraged him to notify primary care if he begins to deteriorate.?6.?Sleep apnea - G47.30, He has a CPAP machine and is using it.?7.?Former smoker - Z87.891, We have made a plan to prevent relapse in times of stress and illness.? Plan: * Treatment: * Procedure Codes:? * Preventive Medicine:? ??Counseling:?Care goal follow-up plan:?Counseling for abnormal BMI given?Yes ?Above Normal BMI Follow-up?Dietary management education, guidance, and counseling ?Smoking/Tobacco Use?Patient counseled on the dangers of tobacco use and urged to quit.?01/09/2024 ??COPD Care Plan:?Patient Lifestyle Goals?Reduce number of ED and hospitalizations, Be able to be more active with friends and family, Relieve symptoms and improve quality of life.?Treatment Goals?Eat a nutritious diet and increase water consumption to 6-8 glasses a day.?Barriers?no barriers.?Self-Managment Goals?Eat a healthy diet, Exercise at least 3xs per week for at least 30 mins.? * Follow Up:?1 Year (Reason: O ffice visit) * Images: * Sign off status: Completed true * Provider:?Misha Moncada MD Date:?12/12 Generated for Printi ng/Rahulg/eTransmitting on:?10/25/2024 07:25 AM EDT History and Physical [...]
--- OUTSIDE RECORDS SUMMARY | 2024-10-25 07:26 | XMS_ITS ---
Author Organization Misha Moncada III, MD Address [address] [place] [address] Care Team Providers Care Director Digital Marketing Name Role Phone Keron Calero MD Primary Care Provider Unavailab Misha Morris Unavailable [phone] Allergies Allergen (clinical drug ingredient) Drug/Non Drug [...] Date Provider Diagnosis Misha Moncada III, MD [address] [place] [address] [place] [address] 09/07/2023 Misha Moncada Colon cancer C18.9 ; [...] esophageal reflux symptoms are well controlled with fgjw-eyf-jmpkfxe medication and no change in his regimen [...] 4 Months, Reason: OV Provider Name:Misha Moncada, 01/09/2025 10:30:00 AM, [address] [place] [address] DR [facility], [place], [address], Progress Notes * Misha MARTINEZ WDOB: (87 yo M)Acc No.[id number]:09/07/2023 Progress Notes Patient:?Misha Martinez Provider:?Misha Moncada MD :1935???Age:87 Y???Sex:Male Bhupendra e:09/07/2023 Address:[address] [place], [place] [id number] Pcp:Keron Calero MD Subjective: * Chief Complaints: * ???History of colon cancerCO PDSleep apneaHypertensionBenign prostatic hypertrophySpinal stenosis * HPI: ???COVID-19 Screening:? He has a history of colon cancer and comes in for surveillance. 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 Misha Elliott was not able to [...] knee with bending but not with weightbearing. ?Questions?Have you experienced fever, chills, cough, sore throat, shortness of breath, difficulty breathing, muscle aches, loss of taste or smell??No ?Have you been exposed to the virus within the last 10 days??No ?Have you travelled internationally in the last 10 days??No ?Have you been exposed to COVID-19 in the past??No * ROS:?General/Constitutional:?pain?Left knee, otherwiseonly normal aches and pains.?Chills?denies.?Fatigue?admits.?Fever?denies.?ENT:?Decreased hearing?in both ears.?Respiratory:?Cough?denies.?Cardiovascular:?Chest pain with exertion?denies.?Dyspnea on exertion?denies.?Shortness of breath?denies.?Gastrointestinal:?Constipation?occasional.?Decreased appetite?denies.?Diarrhea?denies.?Heartburn?denies.?Nausea?denies.?Rectal bleeding?denies.?Vomiting?denies.?Hematology:?bruising?denies.?petechiae?denies.?Swollen glands?none have been noted.?Genitourinary:?Frequent urination?twice a night.?Musculoskeletal:?Muscle aches?denies.?Painful joints?Left knee with bending.?Sciatica?denies.?Weakness?denies.?Skin:?Itching?denies.?Rash?denies.?Skin lesion(s)?denies.?Neurologic:?Difficulty speaking?denies.?Dizziness?denies.?Headache?denies.?Low back pain?denies.?Psychiatric:?Depressed mood?denies.? * Medical [...] Findings: Tobacco Non-User?Ex-cigarette smoker ???He lives in [place], [place]. His one year ago. His children are healthy and well. He is retired. He has no synagogue objection to blood transfusion. * Medications:?TakingSimvastat in [...] Drug All ergyno[Allergies Verified] Objective: * Vitals:?Ht: 5' 11 , Wt:194, BMI:27.05, BP:146/74, HR:61, Temp:97.2, Ht-cm: 180.34, Wt-k. * Examination: ???General Examination: ?GENERAL APPEARANCE:?pleasant, well nourished, well developed, in no acute distress, calm and relaxed , overweight , elderly man.?HEAD:?atraumatic, normocephalic.?EYES:?eomi, perrla, anicteric, conjugate.?EARS:?normal.?NOSE:?septum intact.?ORAL CAVITY:?normal, unremarkable.?NECK/THYROID:?no jugular venous distention, no carotid bruit, thyroid normal.?LYMPH NODES:?no enlarged lymph nodes,spleen normal.?SKIN:?no suspicious lesions, anicteric.?HEART:?no clicks, gallops, murmurs, or rubs, regular rhythm, S1, S2 normal, no s3, or vascular bruits.?LUNGS:??diminished breath sounds throughout , no wheezes, rales, rhonchi.?BREASTS:??no masses palpable bilaterally.?ABDOMEN:?bowel sounds normal, no ascites, no organomegaly, no mass , overweight.?RECTAL EXAM:?not examined.?MUSCULOSKELETAL:?extremities unremarkable, no clubbing, cyanosis or edema.?PERIPHERAL PULSES:?normal.?NEUROLOGIC:?alert and oriented, cranial nerves 2-12 grossly intact, deep tendon reflexes 2+ symmetrical, motor strength normal upper and lower extremities, sensory exam intact.?PSYCH:?alert, oriented.? Assessment: * Assessment: 1.?Colon cancer - C18.9 (Calista torre), There is no sign of recurrent colon cancer on his exam or a new primary He seems healthy and well for a man his age.?2.?BPH (benign prostatic hyperplasia) - N40.0, He rises from sleep once or twice a night to urinate. We have discussed lifestyle modification as way to reduce nocturia.?3.?Mixed hyperlipidemia - E78.2, His body mass index is 27. 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 He is driving without accidents.?5.?Tinnitus, left ear - H93.12, This complaint is unchanged since last visit. He is adapting to it. He declined an offer a referral to ENT.?6.?Spinal stenosis - M48.00, His back pain is present but mild today and chronic. He is being treated for this by primary care.?7.?Sleep apnea - G47.30, He has a CPAP machine and is using it.?8.?COPD (chronic obstructive pulmonary disease) - J44.9, He is comfortable breathing room air today. I encouraged him to notify primary care if he begins to deteriorate.?9.?GERD (gastroesophageal reflux disease) - K21.9, His esophageal reflux symptoms are well controlled with jzyx-fix-nweldnl medication and no change in his regimen as needed.? Plan: * Treatment: 2.?BPH (benign prostatic hyp erplasia)?LAB: PROFILE, FASTING (COMPREHENSIVE METABOLIC) ?LAB: PSA, TOTAL ?LAB: CBC WITH AUTO DIFF ?LAB: Lipid Panel 3.?Mixed hyperlipidemia?LAB: PROFILE, FASTING (COMPREHENSIVE METABOLIC) ?LAB: PSA, TOTAL ?LAB: CBC WITH AUTO DIFF ?LAB: Lipid Panel * Procedure Codes:? * Preventive Medicine:? ??Counseling:?Care goal follow-up plan:?Counseling for abnormal BMI given?Yes ?Above Normal BMI Follow-up?Dietary management education, guidance, and counseling, Dietary needs education ?Smoking/Tobacco Use?Patient counseled on the dangers of tobacco use and urged to quit.?09/06/2023 ??COPD Care Plan:?Patient Lifestyle Goals?Be able to be more active with friends and family, Reduce number of ED and hospitalizations, Relieve symptoms and improve quality of life.?Treatment Goals?Exercise to help whole body, including lungs, Eat a nutritious diet and increase water consumption to 6-8 glasses a day.?Barriers?no barriers.?Self-Managment Goals?Eat a healthy diet, Get an air purifier for the rooms you are in the most.? * Follow Up:?4 Months (Reason: OV) * Images: * Sign off status: Completed true * Provider:?Misha Moncada MD Date:?08/11 Generated for Printi ng/Faxing/eTransmitting on:?10/25/2024 07:25 AM EDT History and Physical Notes * HPI (History of Present Illness) Category Sub-Category Detail Notes COVID-19 Screening Questions Have you had any new onset fever, chills, cough, congestion, sore throat, shortness of breath, muscle aches?: No Have you been exposed to the virus withi n the last 10 days?: No Have you travelled internationally in [facility] last 10 days?: No Have you [...]
[2024-10-25 11:33] LABS: Alanine Aminotransferase 26 U/L (0-40); Anion Gap 9 (12-20); Aspartate Amino Transferase 38 U/L (5-37); Blood Urea Nitrogen 16 mg/dL (9-16); Carbon Dioxide 28 mmol/L (22-29); Chloride 108 mmol/L (96-108); Cholesterol 123 mg/dL (<200); Estimated Glomerular Filt Rate > 60; HDL Cholesterol 52 mg/dL (>40); LDL Cholesterol Calculated 57 mg/dL (<100); Potassium 4.4 mmol/L (3.3-5.1); Sodium 141 mmol/L (135-145); Triglycerides 74 mg/dL (<150)
== END 2024-10-25 07:22 | disposition home or self-care (01) ==
LOC: HO.HMGCLDS 07:21
PROVIDERS: PCP Family Medicine; Visit Provider Family Medicine
DX: I10 Essential (primary) hypertension (principal); Z79.899 Other long term (current) drug therapy; E78.00 Pure hypercholesterolemia, unspecified; C18.9 Malignant neoplasm of colon, unspecified
CPT/HCPCS: 36415; 80051; 80061; 82378; 82550; 82565; 84450; 84460; 84520

== ENCOUNTER 2025-02-06 10:07 | Outpatient (AMB) | payer MEDICARE, SELFPAY ==
--- OUTSIDE RECORDS SUMMARY | 2019-03-29 20:00 | XMS_ITS | Continuity of Care Document ---
Author Name [facility] Organization [facility] Care Team Providers Care Crm Marketing Specialist Name Role Phone [facility] Unavailable Unavailable Problems Combined list of problems from Department of Defense and Veterans Affairs facilities. It does not include entries that were removed or entered in error. 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 Medication Details Route Status Patient Instructions Prescription Expires Prescription Number Last Dispense Date Ordering Provider Order Date Order Qty Source ASCORBIC ACID 500MG TAB TAKE TWO TABLETS BY MOUTH DAILY ORAL ACTIVE JOAN MANCUSO 2011 [facility] ASPIRIN 81MG TAB,EC TAKE ONE TABLET BY MOUTH DAILY ORAL ACTIVE JO[facility] MANCUSO 2011 [facility] FAMOTIDINE 40MG TAB TAKE ONE TABLET BY MOUTH EVERY EVENING ORAL ACTIVE JOAN MANCUSO 2011 [facility] LISINOPRIL 2.5MG TAB TAKE ONE TABLET BY MOUTH DAILY ORAL ACTIVE VANWAGNER ,JOAN Melvin 2016 [facility] MAGNESIUM OXIDE TAB TAKE 500MG BY MOUTH DAILY ORAL ACTIVE VANWAGNER ,JOAN Melvin 2011 [facility] MULTIVITAMI NS W/MINERALS TAB TAKE ONE TABLET BY MOUTH DAILY ORAL ACTIVE VANWAGNER ,JOAN Melvin 2011 [facility] OTHER CAP/TAB TAKE ICAPS ACTIVE VANWAGNER ,JOAN Melvin 2013 [facility] OTHER CAP/TAB OSTEOBIF NANY oral DAILY ACTIVE VANWAGNER ,JOAN Melvin 2011 [facility] SIMVASTATIN 40MG TAB TAKE ONE-HALF TABLET BY MOUTH AT BEDTIME ORAL ACTIVE VANWAGNER ,JOAN Melvin 2011 [facility] VITAMIN D3 (CHOLECALCI FEROL) TAB TAKE 500MG BY MOUTH DAILY ORAL ACTIVE VANWAGNER ,JOAN Melvin 2016 [facility] Immunizations Combined list of available immunizations from the Department of Defense and Veterans Affairs facilities. Immunization Series Date Given Administered By Site Reaction Lot Number CVX Code Drug Implementation Director Status Comments Source INFLUENZA, SEASONAL, INJECTABLE 2018 141 complet ed [facility] INFLUENZA, SEASONAL, INJECTABLE 2017 141 complet ed [facility] INFLUENZA, SEASONAL, INJECTABLE 2016 141 complet ed [facility] PNEUMOCOCCAL CONJUGATE PCV [address] [place]ero [facility] FLU,3 YRS (HISTORICAL) 2014 88 complet ed [facility] FLU,3 YRS (HISTORICAL) 2013 88 complet ed [facility] FLU,3 YRS (HISTORICAL) 2012 88 complet ed [facility] ZOSTER (HISTORICAL) 2012 121 complet ed [facility] PNEUMOCOCCAL POLYSACCHARID E PPV23 2011 33 complet ed [facility] DTAP, UNSPECIFIED FORMULATION 2011 107 complet ed Site: Right Deltoid [facility] FLU,3 YRS (HISTORICAL) 2011 88 complet ed [facility] TD(ADULT) UNSPECIFIED FORMULATION [address] [place] [facility] PNEUMOCOCCAL, UNSPECIFIED FORMULATION 2008 109 complet ed [facility] Social History Combined list of available smoking, tobacco, and other social history from Department of Defense and Veterans Affairs facilities. Social History Type Response Date Comment Source Tobacco smoking status [facility]-TOBACCO FORMER USER 05/18/2018 [facility] History of tobacco use [facility]-TOBACCO QUIT 15 YRS OR MORE 05/18/2018 [facility] History of tobacco use QUIT TOBACCO USE > 7 YEARS AGO 05/12/2017 [facility] History of tobacco use QUIT TOBACCO USE > 7 YEARS AGO 05/26/2015 STOPPED IN 1966 [facility] History of tobacco use LIFETIME NON-TOBACCO USER 03/22/2012 [facility]
--- OUTSIDE RECORDS SUMMARY | 2023-09-07 06:15 | XMS_ITS ---
Author Organization Misha Moncada III, MD Address [address] [place] [address] [place] [address] Care Team Providers Care Technical Support Coordinator Name Role Phone CoraMarkel Beth (Indu) Primary Care Provider Un available Misha Moncada Unavailable [phone] Allergies Allergen (clinical drug ingredient) Drug/Non Drug Allergy documented on EMR Reaction Allergy Type Onset Date Status No Known Drug Allergy Unknown Drug Allergy Active REASON FOR VISIT History of colon cancer, COPD, Sleep apnea, Hypertension, Benign prostatic hypertrophy, Spinal stenosis Medications Medication SIG (Take, Route, Fr equency, Duration) Notes Start Date End Date Status Lisinopril 2.5 MG TAKE 1 TABLET BY SHANTHI TH ONCE EVERY DAY DIRECTED Oral Active Famotidine 40 MG TAKE 1 TABLET BY SHANTHI TH EVERY DAY AT SUPPER TIME Oral Active Simvastatin 20 MG TAKE 1 TABLET BY MOUTH DAILY Oral Active Social History Tobacco Use: Social History Observation Description Date Details (start date - stop date) Former Smoker NA - NA Tobacco Use/Smoking Question Answer Notes Patient is a former smoker How long has it been since you last smoked? > 10 years Additional Findings: Tobacco Non-User Ex-cigaret te smoker Vital Signs Temperature 97.2 degrees Fahrenheit 09/07/19 24 Blood pressure systolic 146 mm Hg 09/07/19 24 Blood pressure diastolic 74 mm Hg 024 Heart Rate 61 /min 09/07/2023 Height 5' 11 in 09/07/2023 Weight 194 lbs 09/07/2023 BMI 27.05 kg/m2 09/07/2023 Encounters Encounter Location Date Provider Diagnosis Misha Moncada III, MD [address] [place] [address] [place] [address] 09/07/2023 Misha Moncada Colon cancer C18.9 ; BPH (benign prostatic hyperplasia) N40.0 ; Mixed hyperlipidemia E78.2 ; Unspecified visual field defects H53.40 ; Tinnitus, left ear H93.12 ; Spinal stenosis M48.00 ; Sleep apnea G47.30 ; COPD (chronic obstructive pulmonary disease) J44.9 and GERD (gastroesophageal reflux disease) K21.9 Assessments Encounter Date Diagnosis (ICD Code) Assessment Notes Treat ment Notes Treatment Clinical Notes 09/07/2023 Colon cancer (ICD-10 - C18.9) There is no sign of recurrent colon cancer on his exam or a new primary He seems healthy and well for a man his age. 09/07/2023 BPH (benign prostati c hyperplasia) (ICD-10 - N40.0) He rises from sleep once or twice a night to urinate. We have discussed lifestyle modification as way to reduce nocturia. 09/07/2023 Mixed hyperlipidemia (ICD-10 - E78.2) His body mass index is 27. We discussed the elements of a weight reduction low animal fat diet. 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 He is driving without accidents. 09/07/2023 Tinnitus, left ear (ICD-10 - H93.12) This complaint is unchanged since last visit. He is adapting to it. He declined an offer a referral to ENT. 09/07/2023 Spinal stenosis (ICD-10 - M48.00) His back pain is present but mild today and chronic. He is being treated for this by primary care. 09/07/2023 Sleep apnea (ICD-10 - G47.30) He has a CPAP machine and is using it. 09/07/2023 COPD (chronic obstructive pulmonary disease) (ICD-10 - J44.9) He is comfortable breathing room air today. I encouraged him to notify primary care if he begins to deteriorate. 09/07/2023 GERD (gastroesophageal reflux disease) (ICD-10 - K21.9) His esophageal reflux symptoms are well controlled with ozga-kck-cdprmit medication and no change in his regimen as needed. Plan Of Treatment Medication Medication Name Sig Start Date Stop Date Notes Lisinopril 2.5 MG TAKE 1 TABLET BY SHANTHI ONCE EVERY DAY DIRECTED Oral Famotidine 40 MG TAKE 1 TABLET BY SHANTHI TH EVERY DAY AT SUPPER TIME Oral Simvastatin 20 MG TAKE 1 TABLET BY MOUTH DAILY Oral Pending Test Test Name Order Date PROFILE, FASTING (COMPREHENSIVE METABOLI C) 09/07/2023 PSA, TOTAL 09/07/2023 CBC WITH AUTO DIFF 09/07/2023 Lipid Panel 09/07/2023 Next Appt Details Follow Up: 4 Months, Reason: OV Provider Name:Misha Moncada, 07/11/2025 09:00:00 AM, [address] [place] [address] [address] [address], [place], [address], Progress Notes * Misha MARTINEZ WDOB: [birth year] (87 yo M)Acc No.[id number]:09/07/2023 Progress Notes Patient: Misha Mcallister Provider: Ching Moncada MD :1935 A ge:87 Y S ex:Male Date:09/07/2023 Address:[address] [place], [place] [id number] Pcp:Keron Calero MD Subjective: * Chief Complaints: * H istory of colon cancerCOPDSleep apneaHypertensionBenign prostatic hypertrophySpinal stenosis * HPI: C OVID-19 Screening: He has a history of colon cancer and comes in for surveillance. His zoo director, Dr. Misha Elliott was not able to do entire colonoscopy so he has scheduled him for a repeat study in November 2023 to do the entire colon. The patient admits to nocturia once or twice at night and mild esophageal reflux symptoms. He denies any cardiac symptoms of palpitations or chest pain or dyspnea. He has a severe pain daily in his left knee with bending but not with weightbearing. Questions H ave you experienced fever, chills, cough, sore throat, shortness of breath, difficulty breathing, muscle aches, loss of taste or smell? N o H ave you been exposed to the virus within the last 10 days? N o H ave you travelled internationally in the last 10 days? N o H ave you been exposed to COVID-19 in the past? N o * ROS: G eneral/Constitutional: pain L eft knee, otherwiseonly normal aches and pains. C hills d enies. F atigue a dmits. F ever d enies. E NT: Decreased hearing i n both ears. R espiratory: Cough d enies. C ardiovascular: Chest pain with exertion d enies. D yspnea on exertion?denies. S hortness of breath d enies. G astrointestinal: Constipation o ccasional. D ecreased appetite d enies. D iarrhea d enies. H eartburn d enies. N ausea d enies. R ectal bleeding d enies. V omiting d enies. H ematology: bruising d enies. p etechiae d enies. S wollen glands n one have been noted. G enitourinary: Frequent urination t wice a night. M usculoskeletal: Muscle aches d enies. P ainful joints L eft knee with bending. S ciatica d enies. W eakness d enies. S kin: Itching d enies. R maryan d enies. S kin lesion(s)?denies. N eurologic: Difficulty speaking d enies. D izziness d enies.?Headache d enies. L ow back pain d enies. P sychiatric: Depressed mood d enies. * Medical History: * Surgical History: C 5/ Disk Surgery 1994Left foot surgery 2005TURP 2007TUNA 2008Prostate TURP 2009Appendectomy 1953hemicolectomy 07/04 * Hospitalization/Major Diagno stic Procedure: D enies Past Hospitalization * Family History: F ather: , prostate cancer, diagnosed with Cancer. M other: , Heart attack. S iblings: , diagnosed with Cancer. 3 brother(s) . 1 son(s) , 2 daughter(s) - healthy. . A twin brother of a ruptured appendix. Two brothers have had brain tumors. He is not aware of any family history of substance use disorder and addiction. His children are healthy and well. * Social History: T obacco Use: T obacco Use/Smoking P atient is a f ormer smoker H ow long has it been since you last smoked??> 10 years A dditional Findings: Tobacco Non-User E x-cigarette smoker Ebonie porras lives in [place], [place]. His one year ago. His children are healthy and well. He is retired. He has no mandaeism objection to blood transfusion. * Medications: T akingSimvastatin 20 MG Tablet TAKE 1 TABLET BY MOUTH DAILY Oral Famotidine 40 MG Tablet TAKE 1 TABLET BY MOUTH EVERY DAY AT SUPPER TIME Oral Lisinopril 2.5 MG Tablet TAKE 1 TABLET BY MOUTH ONCE EVERY DAY DIRECTED Oral Medication List reviewed and reconciled with the patientTaking Simvastatin 20 MG Tablet TAKE 1 TABLET BY MOUTH DAILY Oral Taking Famotidine 40 MG Tablet TAKE 1 TABLET BY MOUTH EVERY DAY AT SUPPER TIME Oral Taking Lisinopril 2.5 MG Tablet TAKE 1 TABLET BY MOUTH ONCE EVERY DAY DIRECTED Oral Medication List reviewed and reconciled with the patient * Allergies: N o Known Drug Allergyno[Allergies Verified] Objective: * Vitals: H t: 5' 11 , Wt:194, BMI:27.05, BP:146/74, HR:61, Temp:97.2, Ht-cm: 180.34, Wt-k. * Examination: G eneral Examination: GENERAL APPEARANCE: p leasant, well nourished, well developed, in no acute distress, calm and relaxed , overweight , elderly man. HEAD: a traumatic, normocephalic. EYES: e noa, perrla, anicteric, conjugate. EARS: n ormal. NOSE: s eptum intact. ORAL CAVITY: n ormal, unremarkable. NECK/THYROID: n o jugular venous distention, no carotid bruit, thyroid normal. LYMPH NODES: n o enlarged lymph nodes,spleen normal. SKIN: n o suspicious lesions, anicteric. HEART: n o clicks, gallops, murmurs, or rubs, regular rhythm, S1, S2 normal, no s3, or vascular bruits. LUNGS: diminished breath sounds throughout , no wheezes, rales, rhonchi. BREASTS: no masses palpable bilaterally. ABDOMEN: b owel sounds normal, no ascites, no organomegaly, no mass , overweight. RECTAL EXAM: n ot examined. MUSCULOSKELETAL: e xtremities unremarkable, no clubbing, cyanosis or edema. PERIPHERAL PULSES: n ormal. NEUROLOGIC: a lert and oriented, cranial nerves 2-12 grossly intact, deep tendon reflexes 2+ symmetrical, motor strength normal upper and lower extremities, sensory exam intact. PSYCH: a lert, oriented. Assessment: * Assessment: 1. C olon cancer - C18.9 (Primary), There is no sign of recurrent colon cancer on his exam or a new primary He seems healthy and well for a man his age. 2 . B PH (benign prostatic hyperplasia) - N40.0, He rises from sleep once or twice a night to urinate. We have discussed lifestyle modification as way to reduce nocturia. 3 . M ixed hyperlipidemia - E78.2, His body mass index is 27. We discussed the elements of a weight reduction low animal fat diet. 4 . U nspecified visual field defects - H53.40, He is current with his visits to ophthalmology. He is driving without accidents. 5 . T innitus, left ear - H93.12, This complaint is unchanged since last visit. He is adapting to it. He declined an offer a referral to ENT. 6 . S briana stenosis - M48.00, His back pain is present but mild today and chronic. He is being treated for this by primary care.?7. S leep apnea - G47.30, He has a CPAP machine and is using it. 8 . C OPD (chronic obstructive pulmonary disease) - J44.9, He is comfortable breathing room air today. I encouraged him to notify primary care if he begins to deteriorate. 9 . G ERD (gastroesophageal reflux disease) - K21.9, His esophageal reflux symptoms are well controlled with vmdc-hju-btylkbo medication and no change in his regimen as needed. Plan: * Treatment: 2. B PH (benign prostatic hyperplasia) L AB: PROFILE, FASTING (COMPREHENSIVE METABOLIC) L AB: PSA, TOTAL L AB: CBC WITH AUTO DIFF L AB: Lipid Panel 3. M ixed hyperlipidemia L AB: PROFILE, FASTING (COMPREHENSIVE METABOLIC) L AB: PSA, TOTAL L AB: CBC WITH AUTO DIFF L AB: Lipid Panel * Procedure Codes: * Preventive Medicine: Counseling: C are goal follow-up plan: Counseling for abnormal BMI given Y es Above Normal BMI Follow-up D ietary management education, guidance, and counseling, Dietary needs education S moking/Tobacco Use Patient counseled on the dangers of tobacco use and urged to quit. 0 09/06/2023 COPD Care Plan: P atient Lifestyle Goals B e able to be more active with friends and family, Reduce number of ED and hospitalizations, Relieve symptoms and improve quality of life. T reatment Goals E xercise to help whole body, including lungs, Eat a nutritious diet and increase water consumption to 6-8 glasses a day. B arriers n o barriers. S elf-Managment Goals E at a healthy diet, Get an air purifier for the rooms you are in the most. * Follow Up: 4 Months (Reason: OV) * Images: * Sign off status: Completed true * Provider: Ching Moncada MD Date: 09/07/2023 Generated for Jerri breaux/Chance/Anibalitting on: 02/06/2025 11:24 AM EDT History and Physical Notes * HPI (History of Present Illness) Category Sub-Category Detail Notes COVID-19 Screening Questions Have you had any new onset fever, chills, cough, congestion, sore throat, shortness of breath, muscle aches?: No Have you been exposed to the virus withi n the last 10 days?: No Have you travelled internationally in last 10 days?: No Have you been exposed to COVID-19 in the past?: No Examination Category Sub-Category Detail Notes General Examination GENERAL APPEARANCE: pleasant , well nourished, well developed, in no acute distress, calm and relaxed , overweight , elderly man HEAD: atraumatic, normocep halic EYES: eomi, perrla, anicte rene, conjugate EARS: normal NOSE: septum intact NECK/THYROID: no jugular venous di stention, no carotid bruit, thyroid normal HEART: no clicks, gallops, murmurs, or rubs, regular rhythm, S1, S2 normal, no s3, or vascular bruits LUNGS: diminished breath so unds throughout , no wheezes, rales, rhonchi ABDOMEN: bowel sounds normal, no ascites, no organomegaly, no mass , overweight NEUROLOGIC: alert and oriented, cranial nerves 2-12 grossly intact, deep tendon reflexes 2+ symmetrical, motor strength normal upper and lower extremities, sensory exam intact SKIN: no suspicious lesion s, anicteric PERIPHERAL PULSES: normal BREASTS: no masses palpable b ilaterally MUSCULOSKELETAL: extremities unremark able, no clubbing, cyanosis or edema LYMPH NODES: no enlarged lymph no adama,spleen normal RECTAL EXAM: not examined PSYCH: alert, oriented ORAL CAVITY: normal, unremarkable
--- OUTSIDE RECORDS SUMMARY | 2023-11-27 06:50 | XMS_ITS ---
Author Organization [facility] Address [address] [place] [id number] Care Team Providers Care Pari Mutuel Clerk Name Role Phone Abdias (RETIRED) Keron WEATHERS Primary Care Provider Unavailable Max Elliott Unavailable [phone] REASON FOR VISIT screening,hx colon cancer, hx polyps, malignant neoplasm splenic flexure Problems Problem Type SNOMED Code ICD Code Onset Dates Problem Status W/U Status Risk Notes Problem Personal history of other malignant neoplasm of large intestine (Z85.038) Active confirmed Problem History of polyp of colon (situation) ([id number]) Personal history of colonic polyps (Z86.010) Active confirmed Encounters Encounter Location Date Provider Diagnosis [facility] [address] [place] [phone] 11/27/2023 Max Elliott Encounter for scre ening colonoscopy Z12.11 ; Personal history of other malignant neoplasm of large intestine Z85.038 ; Personal history of colonic polyps Z86.010 ; Other partial intestinal obstruction K56.690 ; Diverticulosis of large intestine without perforation or abscess without bleeding K57.30 and Other hemorrhoids K64.8 Assessments Encounter Date Diagnosis (ICD Code) Assessment Notes Treatment Notes Treatment Clinical Notes Section Notes 11/27/2023 Encounter for screening colonoscopy (ICD-10 - Z12.11) 11/27/2023 Personal history of other malignant neoplasm of large intestine (ICD-10 - Z85.038) 11/27/2023 Personal history of colonic polyps (ICD-10 - Z86.010) 11/27/2023 Other partial intestinal obstruction (ICD-10 - K56.690) 11/27/2023 Diverticulosis of large intestine without perforation or abscess without bleeding (ICD-10 - K57.30) 11/27/2023 Other hemorrhoids (ICD-10 - K64.8) Plan Of Treatment No Information Progress Notes * MAX WATERMAN WDOB: 6 (89 yo M)Acc No.[id number]:11/27/2023 COLON WITH MAC Patient: MAX ZULETA Provider: Ching Elliott MD :1935 A ge:88 Y S ex:Male Date:11/27/2023 Address:[address] [place], [place] [id number] Pcp:Keron Calero (RETIRED) MD Subjective: * Chief Complaints: * 1 . Screening,hx colon cancer, hx polyps, malignant neoplasm splenic flexure. * Medical History: Objective: * Vitals: Assessment: * Assessment: 1. E ncounter for screening colonoscopy - Z12.11 (Primary) 2 . P ersonal history of other malignant neoplasm of large intestine - Z85.038 3 . P ersonal history of colonic polyps - Z86.010 4 . O ther partial intestinal obstruction - K56.690 5 . D iverticulosis of large intestine without perforation or abscess without bleeding - K57.30 6 . O ther hemorrhoids - K64.8 Plan: * Treatment: * Procedure Codes: 4 5386 COLONOSCOPE DILATE STRICTURE, Modifiers: 33 * * The named appointment provid er may or may not be the originator of this progress note, and it is not deemed complete until electronically signed by the appointment provider. Sign off status: Pending * Provider: Ching Elliott MD Date: 0 11/27/2023 Generated for Jerri breaux/Chance/eTransmitting on: 0 02/06/2025 11:23 AM EDT
--- OUTSIDE RECORDS SUMMARY | 2024-01-09 06:30 | XMS_ITS ---
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 Name Role Phone CoraBeth Jean Baptiste ([place]) Primary Care Provider Un available Misha Moncada Unavailable [phone] Allergies Allergen (clinical drug ingredient) Drug/Non Drug Allergy documented on EMR Reaction Allergy Type Onset Date Status No Known Drug Allergy Unknown Drug Allergy Active REASON FOR VISIT History of colon cancer, Benign prostatic hypertrophy, Spinal stenosis, GERD, COPD, Sleep apnea Medications Medication SIG (Take, Route, Fr equency, Duration) Notes Start Date End Date Status Famotidine 40 MG TAKE 1 TABLET BY SHANTHI TH EVERY DAY AT SUPPER TIME Oral Active Lisinopril 2.5 MG TAKE 1 TABLET BY SHANTHI TH ONCE EVERY DAY DIRECTED Oral Active Simvastatin 20 MG TAKE 1 TABLET BY MOUTH DAILY Oral Active Social History Tobacco Use: Social History Observation Description Date Details (start date - stop date) Former Smoker NA - NA Tobacco Use/Smoking Question Answer Notes Patient is a former smoker How long has it been since you last smoked? > 10 years Additional Findings: Tobacco Non-User Ex-cigaret te smoker Problems Problem Type SNOMED Code ICD Code Onset Dates Problem Status W/U Status Risk Notes Problem 803328994 Overweight (E66.3) Active confirmed His body mass index is 27. He has gained 7 pounds since his last visit. We discussed diet and nutrition today and made a plan to lose weight at a rate of one half of a pound per week. Problem [id number] Former smoker (Z87.891) Active confirmed We have made a plan to prevent relapse in times of stress and illness. Vital Signs Temperature 97.2 degrees Fahrenheit 01/09/20 24 Blood pressure systolic 124 mm Hg 01/09/20 24 Blood pressure diastolic 59 mm Hg 024 Heart Rate 70 /min 01/09/2024 Height 71 in 01/09/2024 Weight 188 lbs 01/09/2024 BMI 26.22 kg/m2 01/09/2024 Encounters Encounter Location Date Provider Diagnosis Misha Moncada III, MD [address] [place] [address] [place] [address] 01/09/2024 Misha Moncada Colon cancer C18.9 ; Overweight E66.3 ; BPH (benign prostatic hyperplasia) N40.0 ; Spinal stenosis M48.00 ; COPD (chronic obstructive pulmonary disease) J44.9 ; Sleep apnea G47.30 and Former smoker Z87.891 Assessments Encounter Date Diagnosis (ICD Code) Assessment Notes Treatment Notes Treatment Clinical Notes 01/09/2024 Colon cancer (ICD-10 - C18.9) There is no sign of recurrent colon cancer on his exam or a new primary He seems healthy and well for a man his age. 01/09/2024 Overweight (ICD-10 - E66.3) He is a very slightly overweight. I recommended to stabilizing his weight at this level through a healthy Mediterranean diet and intermittent exercise. 01/09/2024 BPH (benign prostatic hyperplasia) (ICD-10 - N40.0) He rises from sleep once or twice a night to urinate. We have discussed lifestyle modification as way to reduce nocturia. 01/09/2024 Spinal stenosis (ICD-10 - M48.00) His back pain is present but mild today and chronic. He is being treated for this by primary care. 01/09/2024 COPD (chronic obstructive pulmonary disease) (ICD-10 - J44.9) He is comfortable breathing room air today. I encouraged him to notify primary care if he begins to deteriorate. 01/09/2024 Sleep apnea (ICD-10 - G47.30) He has a CPAP machine and is using it. 01/09/2024 Former smoker (ICD-10 - Z87.891) We have made a plan to prevent relapse in times of stress and illness. Plan Of Treatment Medication Medication Name Sig Start Date Stop Date Notes Famotidine 40 MG TAKE 1 TABLET BY EVERY DAY AT SUPPER TIME Oral Lisinopril 2.5 MG TAKE 1 TABLET BY SHANTHI TH ONCE EVERY DAY DIRECTED Oral Simvastatin 20 MG TAKE 1 TABLET BY MOUTH DAILY Oral Next Appt Details Follow Up: 1 Year, Reason: O ffice visit Provider Name:Misha Moncada, 07/11/2025 09:00:00 AM, [address] [place] [address] [address], [place], [address], Progress Notes * Misha MARTINEZ WDOB: [birth year] (88 yo M)Acc No.[id number]:01/09/2024 Progress Notes Patient: Misha Mcallister Provider: Ching Moncada MD :[id number] A ge:88 Y S ex:Male Date:01/09/2024 Address:[address] [place], [place] [id number] Pcp:Keron Calero MD Subjective: * Chief Complaints: * H istory of colon cancerBenign prostatic hypertrophySpinal stenosisGERDCOPDSleep apnea * HPI: C OVID-19 Screening: He returns for a scheduled visit for surveillance of a history of colon cancer. He has lost 6 pounds since his last visit. His sleep apnea is stable and he uses CPAP. He is not smoking. He has had no recent exacerbations of COPD. His esophageal reflux is well controlled. He rises from sleep twice a night to urinate. We discussed modifications to lifestyle that would reduce nocturia. He has had no rectal bleeding. He denies abdominal pain. Questions H ave you experienced fever, chills, [...] N o * ROS: G eneral/Constitutional: pain o nly normal aches and pains. C hills d enies.?Fatigue a dmits. F ever d enies. E NT: Decreased hearing d enies. R espiratory: Cough d enies. C ardiovascular: Chest pain with exertion d enies. D yspnea on exertion?denies. S hortness of breath d enies. G astrointestinal: Constipation d enies. D ecreased appetite d enies.?Diarrhea d enies. H eartburn d enies. N ausea d enies. R ectal bleeding?denies. V omiting d enies. H ematology: bruising d enies. p etechiae d enies. S wollen glands n one have been noted. G enitourinary: Frequent urination d enies. M usculoskeletal: Muscle aches d enies. P ainful joints d enies. S ciatica d enies. W eakness d enies. S kin: Itching d enies. R maryan d enies. S kin lesion(s)?denies. N eurologic: Difficulty speaking d enies. D izziness d enies.?Headache d enies. L ow back pain d enies. P sychiatric: Depressed mood d enies. * Medical History: * Surgical History: C 5/6 Disk Surgery 1994Left foot surgery 2005TURP 2006TUNA 2007Prostate TURP 2009Appendectomy 1953hemicolectomy 07/04 * Hospitalization/Major Diagno [...] E x-cigarette smoker Ebonie porras lives in [place], [place]. His one year ago. His children are healthy and well. He is retired. He has no yazidi objection to blood transfusion. * Medications: T [...] Allergyno[Allergies Verified] Objective: * Vitals: H t: 71, Wt:188, BMI:26.22, BP:124/59, HR:70, Temp:97.2, Ht-cm: 180.34, Wt-k.28. * P ast Orders: L ab:Complete Blood Count Auto Diff (Order Date - 01/02/2024) (Collection Date - 01/02/2024) Value Reference Range White Blood Count 5.8 4.8-10.8 - X10*3/uL Red Blood Count 4.30 L 4.60-5.80 - X10*6/uL Hemoglobin 14.1 14.0-18.0 - g/dl Hematocrit 42.3 42.0-52.0 - % Mean Corpuscular Volume 98.4 H 80.0-98.0 - fL Mean Corpuscular Hemoglobin 32.8 27.0-33.0 - pg Mean Corpuscular HGB Conc 33.3 31.0-36.0 - g/ dl Red Cell Distribution Width 12.7 11.0-16.0 - % Platelet Count 235 160-400 - X10*3/uL Mean Platelet Volume 9.3 L 9.4-12.4 - fL Neutrophils Percent Auto 44.0 L 45-73 - % Imm Gran Pct Auto 0.2 0.0-0.4 - % Lymphocytes Percent Auto 41.2 H 20-40 - % Monocytes Percent Auto 9.8 2-11 - % Eosinophils Percent Auto 4.3 H 0-4 - % Basophils Percent Auto 0.5 0-2 - % NRBC Pct Auto 0.0 0.0-0.2 - /100WBC Neutrophils Absolute Auto 2.6 2.0-8.3 - x10* 3/uL Imm Gran Abs Auto 0.01 0.00-0.03 - X10*3/uL Lymphocytes Absolute Auto 2.4 1.2-4.9 - X10* 3/uL Monocytes Absolute Auto 0.6 0.1-1.2 - X10*3/ uL Eosinophils Absolute Auto 0.3 0.0-0.4 - X10* 3/uL Basophils Absolute Auto 0.0 0.0-0.2 - X10*3/ uL NRBC Abs Auto 0.000 0.0-0.012 - X10*3/uL L ab:Comprehensive [place]. Panel Fast (Order Date - 01/02/2024) (Collection Date - 01/02/2024) Value Reference Range Sodium 140 135-145 - mmol/L Bilirubin Total 0.7 0.0-1.0 - mg/dL Aspartate Amino Transferase 27 5-37 - U/L Alanine Aminotransferase 20 0-40 - U/L Total Protein 7.6 6.5-8.0 - g/dL Albumin Level 4.3 3.5-5.0 - g/dL Alkaline Phosphatase 64 39-117 - U/L Potassium 4.6 3.3-5.1 - mmol/L Chloride 105 96-108 - mmol/L Carbon Dioxide 27 22-29 - mmol/L Anion Gap 13 12-20 - Blood Urea Nitrogen 16 9-16 - mg/dL Creatinine 0.79 0.5-1.4 - mg/dL Estimated Glomerular Filt Rate > 60 - Glucose Fasting 84 60-99 - mg/dL Calcium 10.2 8.4-10.2 - mg/dL L ab:Prostate Specific Antigen (Order Date - 01/02/2024) (Collection Date - 01/02/2024) Value Reference Range Prostate Specific Antigen 0.12 <0.05-4.0 - ng /mL L ab:Lipid Panel (Order Date 01/02/2024) (Collection Date - 01/02/2024) Value Reference Range Triglycerides 65 <150 - mg/dL Cholesterol 140 <200 - mg/dL LDL Cholesterol Calculated 67 <100 - mg/dL HDL Cholesterol 60 >40 - mg/dL * Examination: G eneral Examination: GENERAL APPEARANCE: [...] nodes,spleen normal. SKIN: n o suspicious lesions, anicteric, Purpura on forearms. HEART: n o clicks, gallops, murmurs, or rubs, regular rhythm, S1, S2 normal, no s3, or vascular bruits. LUNGS: c lear to auscultation . BREASTS: no masses palpable bilaterally. ABDOMEN: b owel sounds normal, no ascites, no organomegaly, no mass, Old healed surgical scar. RECTAL EXAM: n ot examined. MUSCULOSKELETAL: e xtremities unremarkable, no clubbing, cyanosis or edema. PERIPHERAL PULSES: n ormal. NEUROLOGIC: a lert and oriented, cranial nerves 2-12 grossly intact, deep tendon reflexes 2+ symmetrical, motor strength normal upper and lower extremities, sensory exam intact. PSYCH: a lert, oriented , cognitive function intact , speech clear. Assessment: * Assessment: 1. O verweight - E66.3 (Primary), He is a very slightly overweight. I recommended to stabilizing his weight at this level through a healthy Mediterranean diet and intermittent exercise. 2 . Colon cancer - C18.9, There is no sign of recurrent colon cancer on his exam or a new primary He seems healthy and well for a man his age. 3 . B PH (benign prostatic hyperplasia) - N40.0, He rises from sleep once or twice a night to urinate. We have discussed lifestyle modification as way to reduce nocturia. 4 . S briana stenosis - M48.00, His back pain is present but mild today and chronic. He is being treated for this by primary care. 5 . C OPD (chronic obstructive pulmonary disease) - J44.9, He is comfortable breathing room air today. I encouraged him to notify primary care if he begins to deteriorate. 6 . S leep apnea - G47.30, He has a CPAP machine and is using it. 7 . F ormer smoker - Z87.891, We have made a plan to prevent relapse in times of stress and illness. Plan: * Treatment: * Procedure Codes: * Preventive Medicine: Counseling: C are goal follow-up plan: Counseling for abnormal BMI given Y es Above Normal BMI Follow-up D ietary management education, guidance, and counseling S moking/Tobacco Use Patient counseled on the dangers of tobacco use and urged to quit. 0 01/09/2024 COPD Care Plan: P atient Lifestyle Goals R educe number of ED and hospitalizations, Be able to be more active with friends and family, Relieve symptoms and improve quality of life. T reatment Goals E at a nutritious diet and increase water consumption to 6-8 glasses a day. B arriers n o barriers. S elf-Managment Goals E at a healthy diet, Exercise at least 3xs per week for at least 30 mins. * Follow Up: 1 Year (Reason: Office visit) * Images: * Sign off status: Completed true * Provider: Ching Moncada MD Date: 0 01/09/2024 Generated for Jerri breaux/Chance/eTransmitting on: 02/06/2025 11:24 AM EDT History and Physical Notes * HPI (History of Present Illness) Category Sub-Category Detail Notes COVID-19 Screening Questions Have you had any new onset fever, chills, cough, congestion, sore throat, shortness of breath, muscle aches?: No Have you been exposed to the virus withi n the last 10 days?: No Have you travelled internationally in [facility] last 10 days?: No Have you been [...] normal, no s3, or vascular bruits LUNGS: clear to auscultatio n ABDOMEN: bowel sounds normal, no ascites, no organomegaly, no mass, Old healed surgical scar NEUROLOGIC: alert and oriented, cranial nerves 2-12 grossly intact, deep tendon reflexes 2+ symmetrical, motor strength normal upper and lower extremities, sensory exam intact SKIN: no suspicious lesion s, anicteric, Purpura on forearms PERIPHERAL PULSES: normal BREASTS: no masses palpable b ilaterally MUSCULOSKELETAL: extremities unremark able, no clubbing, cyanosis or edema LYMPH NODES: no enlarged lymph no adama,spleen normal RECTAL EXAM: not examined PSYCH: alert, oriented , co gnitive function intact , speech clear ORAL CAVITY: normal, unremarkable
--- OUTSIDE RECORDS SUMMARY | 2025-01-09 06:30 | XMS_ITS ---
Author Organization Misha Moncada III, MD Address [address] [place] [address] [place] [address] Care Team Providers Care Wringer Machine Operator Name Role Phone CoraMarkel Beth (Indu) Primary Care Provider Un available Misha Moncada Unavailable [phone] Allergies Allergen (clinical drug ingredient) Drug/Non Drug Allergy documented on EMR Reaction Allergy Type Onset Date Status No Known Drug Allergy Unknown Drug Allergy Active REASON FOR VISIT colon cancer, Benign prostatic hypertrophy, Spinal stenosis, COPD, Sleep apnea, Benign paroxysmal vertigo, Thyroid Medications Medication SIG (Take, Route, Fr equency, [...] Non-User Ex-cigaret te smoker Vital Signs Temperature 97.1 degrees Fahrenheit 01/10/20 25 Blood pressure systolic 148 mm Hg 01/10/20 25 Blood pressure diastolic 79 mm Hg 025 Heart Rate 73 /min 01/09/2025 Height 71 in 01/09/2025 Weight 195 lbs 01/09/2025 BMI 27.19 kg/m2 01/09/2025 Encounters Encounter Location Date Provider Diagnosis Misha Moncada III, MD [address] [place] [address] [place] [address] 01/09/2025 Misha Moncada Colon cancer C18.9 ; BPH (benign prostatic hyperplasia) N40.0 ; Mixed hyperlipidemia E78.2 ; Overweight E66.3 ; Tinnitus, left ear H93.12 ; Spinal stenosis M48.00 ; Sleep apnea G47.30 and Former smoker Z87.891 Assessments Encounter Date Diagnosis (ICD Code) Assessment Notes Treat ment Notes Treatment Clinical Notes 01/09/2025 Colon cancer (ICD-10 - C18.9) There is no sign of recurrent colon cancer on his exam or a new primary He seems healthy and well for a man his age. 01/09/2025 BPH (benign prostati c hyperplasia) (ICD-10 - N40.0) He reports rising from sleep once a night usually. We discussed lifestyle modifications he could make to reduce this. 01/09/2025 Mixed hyperlipidemia (ICD-10 - E78.2) 01/09/2025 Overweight (ICD-10 - E66.3) His body mass index is 27. He has gained 7 pounds since his last visit. We discussed diet and nutrition today and made a plan to lose weight at a rate of one half of a pound per week. 01/09/2025 Tinnitus, left ear (ICD-10 - H93.12) This complaint is unchanged since last visit. He is adapting to it. He declined an offer a referral to ENT. 01/09/2025 Spinal stenosis (ICD-10 - M48.00) His back pain is present but mild today and chronic. He is being treated for this by primary care. 01/09/2025 Sleep apnea (ICD-10 - G47.30) He has a CPAP machine and is using it. 01/09/2025 Former smoker (ICD-1 0 - Z87.891) We have made a plan [...] Pending Test Test Name Order Date PROFILE, RANDOM (COMPREHENSIVE METABOLIC ) 01/09/2025 PSA, TOTAL 01/09/2025 CBC w DIFF 01/09/2025 Next Appt Details Follow Up: 6 Months, Reason: OV Provider Name:Misha Moncada, 07/11/2025 09:00:00 AM, [address] [place] [address] [place], [place], [address], Progress Notes * Misha MARTINEZ WDOB: [birth year] (89 yo M)Acc No.[id number]:01/09/2025 Progress Notes Patient: Misha ZULETA Provider: Ching Moncada MD :1935 A ge:89 Y S ex:Male Date:01/09/2025 Address:[address] [place], [place] [id number] Pcp:Beth ColbertyokeLillian Neal Subjective: * Chief Complaints: * C olon cancerBenign prostatic hypertrophySpinal stenosisCOPDSleep apneaBenign paroxysmal vertigoThyroid * HPI: C OVID-19 Screening: He returns for ongoing follow-up of his colon cancer and surveillance for new primary. He is now and living with his son Fuad. His primary care doctor has retired and he has been assigned to a new provider at [facility]. He does not know who that provider is.? There is some recent blood work available which was reviewed with him.He has no new complaints. He denies any recent hematochezia. His appetite is good and his weight is stable. His examination was unremarkable for his age. Questions H ave you had any new onset fever, chills, cough, congestion, sore throat, shortness of breath, muscle aches? N o * ROS: G eneral/Constitutional: pain [...] enies. D iarrhea d enies. H eartburn o ccasional. N ausea d enies. R ectal bleeding d enies. V omiting d enies. H ematology: bruising d enies. p etechiae d enies. S wollen glands n one have been noted. G enitourinary: Frequent urination o nce a night. M usculoskeletal: Muscle aches d enies. P ainful joints d enies. S ciatica d enies. W eakness d enies. S kin: Itching d enies. R maryan d enies. S kin lesion(s)?denies. N eurologic: Difficulty speaking d enies. D izziness d enies.?Headache d enies. L ow back pain t hat is chronic. P sychiatric: Depressed mood d enies. * Medical History: * Surgical History: C 10/15 Disk Surgery 1994Left foot surgery 2005TURP 2006TUNA [...] E x-cigarette smoker Ebonie porras lives in [place], [place]. His one year ago. His children are healthy and well. He is retired. He has no latter-day objection to blood transfusion. * Medications: T [...] Verified] Objective: * Vitals: H t: 71, Wt:195, BMI:27.19, BP:148/79, HR:73, Temp:97.1, Ht-cm: 180.34, Wt-k.45. * Examination: G eneral Examination: GENERAL APPEARANCE: p leasant, well nourished, well developed, in no acute distress, calm and relaxed: overweight: elderly man. HEAD: a traumatic, normocephalic. EYES: [...] sounds normal, no ascites, no organomegaly, no mass: overweight, Old healed surgical incision. RECTAL EXAM: n ot examined. MUSCULOSKELETAL: e xtremities unremarkable, no clubbing, cyanosis or edema, Arthritic changes hands and knees and hips. PERIPHERAL PULSES: n ormal. NEUROLOGIC: a lert and oriented, cranial nerves 2-12 grossly intact, deep tendon reflexes 2+ symmetrical, motor strength normal upper and lower extremities, sensory exam intact, Appropriate for the age speech clears somewhat forgetful. PSYCH: a lert, oriented, Able to drive his automobile, somewhat forgetful. Assessment: * Assessment: 1. C olon cancer - C18.9 (Primary) N otes :There is no sign of recurrent colon cancer on his exam or a new primary He seems healthy and well for a man his age. 2 . B PH (benign prostatic hyperplasia) - N40.0 N otes :He reports rising from sleep once a night usually. We discussed lifestyle modifications he could make to reduce this. 3 . M ixed hyperlipidemia - E78.2 4 . O verweight - E66.3? Notes :His body mass index is 27. He has gained 7 pounds since his last visit. We discussed diet and nutrition today and made a plan to lose weight at a rate of one half of a pound per week. 5 . T innitus, left ear - H93.12 N otes :This complaint is unchanged since last visit. He is adapting to it. He declined an offer a referral to ENT. 6 . S briana stenosis - M48.00 N otes :His back pain is present but mild today and chronic. He is being treated for this by primary care. 7 . S leep apnea - G47.30 N otes :He has a CPAP machine and is using it. 8 . F ormer smoker - Z87.891 N otes :We have made a plan to prevent relapse in times of stress and illness. Plan: * Treatment: 2. B PH (benign prostatic hyperplasia) L AB: PROFILE, RANDOM (COMPREHENSIVE METABOLIC) L AB: PSA, TOTAL L AB: CBC w DIFF 3. M ixed hyperlipidemia L AB: PROFILE, RANDOM (COMPREHENSIVE METABOLIC) L AB: PSA, TOTAL L AB: CBC w DIFF 4. O verweight L AB: PROFILE, RANDOM (COMPREHENSIVE METABOLIC) L AB: PSA, TOTAL L AB: CBC w DIFF * Procedure Codes: * Preventive Medicine: Counseling: C are goal follow-up plan: Counseling for abnormal BMI given Y es Above Normal BMI Follow-up D ietary management education, guidance, and counseling, Dietary needs education S moking/Tobacco Use Patient counseled on the dangers of tobacco use and urged to quit. 0 01/10/2025 * Follow Up: 6 Months (Reason: OV) * Images: * Sign off status: Completed true * Provider: Ching Moncada MD Date: 0 01/09/2025 Generated for Jerri breaux/Chance/eTdeesmitting on: 0 02/06/2025 11:24 AM EDT History and Physical Notes * HPI (History of Present Illness) Category Sub-Category Detail Notes COVID-19 Screening Questions Have you had any new onset fever, chills, cough, congestion, sore throat, shortness of breath, muscle aches?: No Examination Category Sub-Category Detail Notes General Examination GENERAL APPEARANCE: pleasant , well nourished, well developed, in no acute distress, calm and relaxed: overweight: elderly man HEAD: atraumatic, normocep halic EYES: eomi, perrla, anicte rene, conjugate EARS: normal NOSE: septum intact NECK/THYROID: no jugular venous di stention, no carotid bruit, thyroid normal HEART: no clicks, gallops, murmurs, or rubs, regular rhythm, S1, S2 normal, no s3, or vascular bruits LUNGS: clear to auscultatio n ABDOMEN: bowel sounds normal, no ascites, no organomegaly, no mass: overweight, Old healed surgical incision NEUROLOGIC: alert and oriented, cranial nerves 2-12 grossly intact, deep tendon reflexes 2+ symmetrical, motor strength normal upper and lower extremities, sensory exam intact, Appropriate for the age speech clears somewhat forgetful SKIN: no suspicious lesion s, anicteric PERIPHERAL PULSES: normal BREASTS: no masses palpable b ilaterally MUSCULOSKELETAL: extremities unremark able, no clubbing, cyanosis or edema, Arthritic changes hands and knees and hips LYMPH NODES: no enlarged lymph no adama,spleen normal RECTAL EXAM: not examined PSYCH: alert, oriented, Abl e to drive his automobile, somewhat forgetful ORAL CAVITY: normal, unremarkable
--- NOTE | 2025-02-06 09:45 | A.OFFPC_ITS ---
Vital Signs 02/06/25 10:15 Height 5 ft 11 in Weight 195 lb BMI 27.2 BP 132/80 Blood Pressure Location Lt brachial Position Sitting Pulse 68 Pulse Source Pulse Oximeter Temp 97.5 F Temp Source Temporal Artery Scan Pulse Oximetry (%) 99 Oxygen Delivery Method Room Air Intake Visit Reasons: 3 MO F/UP - TIM PT Signalman Required: No Accompanied by: Self / Same As Patient Allergies No Known Allergies Allergy (Verified 02/06/25 09:45) Tobacco use date assessed: 02/06/25 Fall risk assessment: No Falls in past year Last assessed Fall Risk: 02/06/25 Dental Screening Dental Screen Date: 02/06/25 Did you have a dental visit in the last 12 months?: Yes Did you have a dental problem in the last 6 months where you did not have access to dental care?: No HPI HPI Comments History of Present Illness Details The patient is a 89 year old male with a past medical history of htn, hld, GERD, spinal stenosis, colon cancer, BPPV, [place]MAN, presenting to [facility]. Transfer from Dr Calero-chrissie seen in October. Follows every 3 months and would like to continue to do so CV: on lisinopril, simvastatin. Blood pressure is well controlled. Denies chest pain or shortness. History of colon cancer: Follows with Dr Elliott. Colonoscopy in 2023 he said no need for further unless develops symptoms ROS CONSTITUTIONAL: Denies weight loss, fever and chills. HEENT: Denies changes in vision and hearing. RESPIRATORY: Denies SOB and cough. CV: Denies palpitations and CP GI: Denies abdominal pain, nausea, vomiting and diarrhea. : urinary dribbling MSK: Denies new myalgia and joint pain. SKIN: Denies rash and pruritus. NEUROLOGICAL: Denies headache PSYCHIATRIC: Denies recent changes in mood. PHYSICAL EXAM: GENERAL: Alert and oriented x 3. NAD EYES: EOMI. Anicteric. HENT: Moist mucous membranes. No scleral icterus. No cervical lymphadenopathy. LUNGS: Clear to auscultation bilaterally. CARDIOVASCULAR: Regular rate and rhythm. No murmur. No JVD. ABDOMEN: Soft, non-tender +bs EXTREMITIES: No edema. Non-tender. SKIN: No rashes or lesions. Warm. NEUROLOGIC: No focal neurological deficits. CN II-XII grossly intact PSYCHIATRIC: Cooperative. Appropriate mood and affect [facility] Medical History Hand arthritis Left knee DJD Sleep apnea with use of continuous positive airway pressure (CPAP) Cancer of left colon Former smoker Abnormal colonoscopy Hyperlipidemia HTN (hypertension) Surgical History S/P partial colectomy (06/27/22) History of carpal tunnel release History of colonoscopy (~11/27/23) History of neck surgery History of appendectomy Family History Father Prostate cancer Mother No problems noted. Father No problems noted. 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 1. Little interest or pleasure in doing things: not at all 2. Feeling down, depressed, or hopeless: not at all 3. Trouble falling or staying asleep, or sleeping too much: not at all 4. Feeling tired or having little energy: not at all 5. Poor appetite or overeating: not at all 6. Feeling bad about yourself - or that you are a failure or have let yourself or your family down: not at all 7. Trouble concentrating on things, such as reading the newspaper or watching television: not at all 8. Moving or speaking so slowly that other people could have noticed. Or the opposite - being so fidgety or restless that you have been moving around a lot more than usual: not at all 9. Thoughts that you would be better off or of hurting yourself in some way: not at all Total score: 0 Depression Screening Interpretation: Negative Depression Screening Done: Yes 29452 - PHQ-9 Billing: Yes Source: Developed by Drs. Misha Weinberg, Sohail Tubbs and colleagues, with an educational yakov from [employer]. Thrive Questionnaire Date Thrive assessed: 02/06/25 I am a: Patient Within the past 12 months, did the food you bought not last and you didn't have the money to get more?: Never true Within the past 12 months, did you worry whether your food would run out before you got money to buy more?: Never true Do you have trouble paying for medicines?: No Do you have trouble getting transportation to medical appointments?: No Do you have trouble paying your heating and electricity bill?: No Do you have trouble taking care of your child, family member or friend?: No THRIVE Score: 0 AUDIT C Alcohol Use Questionnaire (AUDIT-C) 1. How often do you have a drink containing alcohol?: Never 3. How often do you have six or more drinks on one occasion?: Never Total Score: 0 PRASANNA-7 AMB Questionnaire PRASANNA-7 Date PRASANNA - 7 assessed: 02/06/25 Feeling nervous, anxious, or on edge: 0 = Not at all Not being able to stop or control worryin = Not at all Worrying too much about different things: 0 = Not at all Trouble relaxin = Not at all Being so restless that it is hard to sit still: 0 = Not at all Becoming easily annoyed or irritable: 0 = Not at all Feeling afraid as if something awful might happen: 0 = Not at all Total PRASANNA-7 score (0-4 normal; 5-9 mild; 10-14 moderate; 15-21 severe): 0 Source: Developed by Drs. Misha Weinberg, Sohail Tubbs and colleagues, with an educational yakov from [employer]. Physical exam (Primary Care) Vital Signs: Last Vital Signs Temp 97.5 F 02/06/25 10:15 Pulse 68 02/06/25 10:15 BP 132/80 02/06/25 10:15 Pulse Ox 99 02/06/25 10:15 Oxygen Delivery Method Room Air 02/06/25 10:15 BMI result Body Mass Index 27.2 Tobacco/Smoking Status: Tobacco use Status Tobacco use date assessed 02/06/25 02/06/25 09:46 Patient Tobacco Use Status Former Tobacco user 02/06/25 09:46 e-Cigarette/Vaping Use Former Use 02/06/25 09:46 PHQ-9: PHQ-9 Score PHQ-9: Total score 0 02/08/25 12:22 Depression Screening Interpretation: Negative Thrive Assessment: Date of Thrive Assessment Date Thrive assessed 02/06/25 02/06/25 09:46 Coding Level of Care Code New Pt Level 4 (75139) Diagnoses Primary hypertension I10 Hypertension type: primary hypertension Hyperlipidemia, unspecified hyperlipidemia type E78.5 Hyperlipidemia type: unspecified Urinary incontinence, unspecified type R32 Urinary Incontinence type: unspecified incontinence Sleep apnea with use of continuous positive airway pressure (CPAP) G47.30 Additional Codes PHQ-9 - 70390 - PHQ-9 Billing: Yes ([id number]) Assessment & Plan Assessment & Plan (1) HTN (hypertension): Code(s): I10 - Essential (primary) hypertension Category: Medical Qualifiers: Hypertension type: primary hypertension Qualified Code(s): I10 - Essential (primary) hypertension (2) Hyperlipidemia: Code(s): E78.5 - Hyperlipidemia, unspecified Category: Medical Qualifiers: Hyperlipidemia type: unspecified Qualified Code(s): E78.5 - Hyperlipidemia, unspecified (3) Urinary incontinence: Code(s): R32 - Unspecified urinary incontinence Category: Medical Qualifiers: Urinary Incontinence type: unspecified incontinence Qualified Code(s): R32 - Unspecified urinary incontinence (4) Sleep apnea with use of continuous positive airway pressure (CPAP): Code(s): G47.30 - Sleep apnea, unspecified Category: Medical Plan 89 year old male presenting to establish care Past medical surgical social reviewed urinary dribbling-check ua/uc. could consider flomax/urology referral GERD-controlled on pepcid HTN-controlled on lisinopril Orders: Orders UA and rflx microscopic 02/06/25 C18.6 - Malignant neoplasm of descending colon, R32 - Unspecified urinary incontinence Urine Culture 02/06/25 R32 - Unspecified urinary incontinence
[2025-02-06 10:15] VITALS: BP 132/80; PULSE 68; TEMP 36.4; O2SAT 99; BMI 27.2
--- OUTSIDE RECORDS SUMMARY | 2025-02-06 11:24 | XMS_ITS | Clinical Summary ---
Author Organization 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 Not on maximiliano e 10/08/2022 Are you concerned about learning? Not on file 10/08/2022 No 10/08/2022 No 10/08/2022 Digital Access Answer Date Recorded No 11/08/2022 No 11/08/2022 Reliable internet access at home? Not on file 11/08/2022 Device with a working camera? Not on file Sex and Gender Information Value Date Recorded Sex Assigned at Not on file Legal Sex Male 2:59 PM EST Gender Identity Not on file Sexual Orientation Not on file Plan of Treatment Not on file Medical Devices Not on file Additional Source Comments The information contained in this document represents components of the legal health record. It is not the complete legal health record.[facility]
--- OUTSIDE RECORDS SUMMARY | 2025-02-06 11:24 | XMS_ITS | Patient Health Record ---
Author Organization [facility] Address [address] [place] [address] Care Team Providers Care Layout Worker Name Role Phone Keron Calero MD Primary Care Provider UnavailOlegario Perez Unavailable [phone] Reason For Referral No Information Medications Medication SIG (Take, Route, Fr equency, Duration) Notes Start Date End Date Status Physical Therapy . . . 2-3x/week; Durat ion: 3-4 weeks 07/25/2016 Active Famotidine 40 MG Orally Act linnette simvastatin Active Low-Dose Aspirin Act linnette Magnesium 500 MG Orally Act linnette Multivitamin Active Lisinopril Active Vitamin D Active Social History Tobacco use other than smoking: Question Answer Notes Are you an other tobacco user? No Plan Of Treatment Pending Test Test Name Order Date X ray : Foot, right 3V 06/22/2016 Insurance Providers Payer Name Payer Address Payer Phone Subscriber Number Group Number Insured Name Patient Relationship to Insured Coverage Start Date Coverage End Date [facility] [address] [facility] [place] [address] [id number] KennethMisha cramer Self - patient is the insured Medical (General) History Medical History History ICD Code Cancer Cataracts Psychiatric disorder Measles Mumps Chicken pox Surgical History Surgery Date(Month/Year) appendectomy neck surgery basil cell - scalp 1989
--- OUTSIDE RECORDS SUMMARY | 2025-02-06 11:24 | XMS_ITS | Patient Health Record ---
Author Organization Misha Moncada III, MD Address [address] [place] [address] Care Team Providers Care Health Education Director Name Role Phone Beth Neal (Indu) Primary Care Provider Un available Misha Moncada Unavailable [phone] Allergies Allergen (clinical drug ingredient) Drug/Non Drug Allergy documented on EMR Reaction Allergy Type Onset Date Status No Known Drug Allergy Unknown Drug Allergy Active Reason For Referral No Information Medications Medication [...] Problem Status W/U Status Risk Notes Problem 0835539 Former smoker (Z87.891) Active confirmed We have made a plan to prevent relapse in times of stress and illness. Problem Spinal stenosis (16221276) Spinal stenosis (M48.00) Active confirmed His back pain is present but mild today and chronic. He is being treated for this by primary care. Problem 107114231 Overweight (E66.3) Active confirmed His body mass index is 27. He has gained 7 pounds since his last visit. We discussed diet and nutrition today and made a plan to lose weight at a rate of one half of a pound per week. Problem Gastroesophageal reflux disease (010595713) GERD (gastroesophage al reflux disease) (K21.9) Active confirmed His esophageal reflux symptoms are well controlled with etsu-bgl-owvou er medication and no change in his regimen as needed. Problem 541749234 Mixed hyperlipidemia (E78.2) Active confirmed His body mass index is 27. We discussed the elements of a weight reduction low animal fat diet. Problem Visual field defect (01284360) Unspecified visual field defects (H53.40) Active confirmed He is current with his visits to ophthalmology. He is driving without accidents. Problem Benign paroxysmal positional vertigo (005354105) Benign paroxysmal vertigo, unspecified ear (H81.10) Active confirmed This is an occasional problem with him, but is not present today. Problem Tinnitus of left ear (4473558541444) Tinnitus, left ear (H93.12) Active confirmed This complaint is unchanged since last visit. He is adapting to it. He declined an offer a referral to ENT. Problem Hypertension (78370167) HTN (hypertension) (I10) Active confirmed All his blood pressure is 120/70. No change in his regimen as needed. Problem Benign prostatic hyperplasia (594036530) BPH (benign prostatic hyperplasia) (N40.0) Active confirmed He reports rising from sleep once a night usually. We discussed lifestyle modifications he could make to reduce this. Problem COPD - Chronic obstructive pulmonary disease (25495478) COPD (chronic obstructive pulmonary disease) (J44.9) Active confirmed He is comfortable breathing room air today. I encouraged him to notify primary care if he begins to deteriorate. Problem Carpal tunnel syndrome (11220296) Carpal tunnel syndrome (G56.00) Active confirmed He denies any significant pain in his hands at this time. Problem Thyroid nodule (276840278) Thyroid nodule (E04.1) Active confirmed Problem Osteoarthritis (301956664) Osteoarthritis (M19.90) Active confirmed Problem Sleep apnea (72666785) Sleep apnea (G47.30) Active confirmed He has a CPAP machine and is using it. Problem Ataxia (28892369) Ataxia (R27.0) Active confirm ed Problem Malignant tumor of colon (185737011) Colon cancer (C18.9) Active confirmed There is no sign of recurrent colon cancer on his exam or a new primary He seems healthy and well for a man his age. 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 Vital Signs Heart Rate 73 /min 01/09/2025 Temperature 97.1 degrees Fahrenheit 01/09/2025 Blood pressure diastolic 79 mm Hg 01/09/2025 Height 71 in 01/09/2025 Blood pressure systolic 148 mm Hg 01/09/2025 Weight 195 lbs 01/09/2025 BMI 27.19 kg/m2 01/09/2025 Encounters Encounter Location Date Provider Diagnosis Misha Moncada III, MD [address] [place] [address] [place] [address] 01/09/2025 Misha Moncada Colon cancer C18.9 ; BPH (benign prostatic hyperplasia) N40.0 ; Mixed hyperlipidemia E78.2 ; Overweight E66.3 ; Tinnitus, left ear H93.12 ; Spinal stenosis M48.00 ; Sleep apnea G47.30 and Former smoker Z87.891 Assessments Encounter Date Diagnosis (ICD Code) Assessment Notes Treat ment Notes Treatment Clinical Notes 01/09/2025 BPH (benign prostati c hyperplasia) (ICD-10 - N40.0) He reports rising from sleep once a night usually. We discussed lifestyle modifications he could make to reduce this. 01/09/2025 Colon cancer (ICD-10 - C18.9) There is no sign of recurrent colon cancer on his exam or a new primary He seems healthy and well for a man his age. 01/09/2025 Mixed hyperlipidemia (ICD-10 - E78.2) 01/09/2025 [...] Date PROFILE, FASTING (COMPREHENSIVE METABOLI C) 09/07/2023 PROFILE, RANDOM (COMPREHENSIVE METABOLIC ) 01/09/2025 PSA, TOTAL 01/09/2025 PSA, TOTAL 09/07/2023 CBC w DIFF 01/09/2025 CBC WITH AUTO DIFF 09/07/2023 Lipid Panel 09/07/2023 Next Appt Details Provider Name:Misha Moncada, 07/11/2025 09:00:00 AM, [address] [place] [address] [address], [place], [address], Insurance Providers Payer Name Payer Address Payer Phone Subscriber Number Group Number Insured Name Patient Relationship to Insured Coverage Start Date Coverage End Date [facility] [address] [facility] [address] [place] [phone] [id number] Misha Martinez Self - patient is the insured MEDICARE NGS [address] [place] [phone] [id number] Misha Martinez Self - patient is the insured Medical (General) History Medical History History ICD Code 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
--- OUTSIDE RECORDS SUMMARY | 2025-02-06 11:25 | XMS_ITS | Patient Health Record ---
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 Patternmaker Name Role Phone Abdias (RETIRED) Keron WEATHERS Primary Care Provider Unavailable Max Elliott Unavailable [phone] Allergies No Known Allergies Reason For Referral [...] Status Risk Notes Problem Colon cancer screening (997205272) Colon cancer screening (Z12.11) Active confirmed Problem History of polyp of colon (situation) (579881187) Personal history of colonic polyps (Z86.010) Active confirmed Problem 39923241 Change in bowel habits (R19.4) Active confirmed 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 Problem Diverticular disease of colon (145983221) Diverticulosis of large intestine without perforation or abscess without bleeding (K57.30) Active confirmed Problem Long-term current use of antiplatelet drug (913892137155604) snf (current) use of aspirin (Z79.82) Active confirmed Problem History of malignant neoplasm of colon (164430499) Personal history of other malignant neoplasm of large intestine (Z85.038) Active confirmed Problem History of polyp of colon (903011229) History of colon polyps (Z86.010) Active confirmed Problem 531353825 Abnormal CT scan , colon (R93.3) Active confirmed Problem History of malignant neoplasm of colon (430452083) Personal history of colon cancer (Z85.038) Active confirmed Problem Gastrointestinal anastomotic stricture (075563910) 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 Plan Of Treatment Future Test Test Name Order Date COLONOSCOPY 06/16/2022 COLONOSCOPY 08/29/2023 Insurance Providers Payer Name Payer Address Payer Phone Subscriber Number Group Number Insured Name Patient Relationship to Insured Coverage Start Date Coverage End Date [facility] [address] [place] [phone] [id number] MAX WATERMAN Self - patient is the insured Medical (General) History Medical History History ICD Code Hypertension Denies AL,DM,CVA,Lung disease,renal dise ase Hyperlipidemia Screening colonoscopy in [...]
== END 2025-02-06 10:43 | disposition home or self-care (01) ==
LOC: HO.HMCHD 10:08
PROVIDERS: PCP Family Medicine; Visit Provider Internal Medicine
DX: I10 Essential (primary) hypertension (principal); E78.5 Hyperlipidemia, unspecified; R32 Unspecified urinary incontinence; G47.30 Sleep apnea, unspecified

== ENCOUNTER 2025-02-06 10:07 | Outpatient (REF) | payer MEDICARE, SELFPAY ==
[2025-02-06 12:03] LABS: Appearance Urine Clear; Glucose Urine UA Negative (Negative); PH 6.0 (5.0-9.0); Specific Gravity - Urine <= 1.005 (1.005-1.025)
== END 2025-02-06 10:08 | disposition home or self-care (01) ==
LOC: HO.LAB 10:07
PROVIDERS: PCP Internal Medicine; Visit Provider Internal Medicine
DX: C18.6 Malignant neoplasm of descending colon (principal); R32 Unspecified urinary incontinence; I10 Essential (primary) hypertension; E78.5 Hyperlipidemia, unspecified; G47.30 Sleep apnea, unspecified
CPT/HCPCS: 81003; 87086; 96127; 99202

== ENCOUNTER 2025-05-01 08:51 | Outpatient (AMB) | payer MEDICARE, SELFPAY ==
--- NOTE | 2025-05-01 08:52 | MHC.PC.OV ---
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 boulardii)) 250 mg PO BID simvastatin 20 mg PO DAILY vitamins A,C,U-nbmj-rdxirc 4,296 mcg-226 mg-90 mg (PreserVision AREDS) 1 cap PO BID Tobacco use date assessed: 02/06/25 Dental Screening Dental Screen Date: 02/06/25 HPI HPI Comments History of Present Illness Details History of Present Illness The patient is an 89 year old individual presenting for management of chronic conditions, including hypertension and hypercholesterolemia. The patient has a history of hypertension and has been monitoring blood pressure readings at home. Recent home measurements have been elevated, including readings of 146, 168, and 157 mmHg, and the in-office reading was 154 mmHg. The patient's cholesterol was last measured at 123 mg/dL, with an LDL of 57 mg/dL and HDL of 52 mg/dL. The patient has a history of colon cancer from 1992, for which the patient underwent a colonoscopy. The patient currently experiences excessive flatus, which did not resolve after discontinuing probiotics three to four weeks ago. The patient reports having good bowel movements. Associated age-related concerns include feeling less steady on the patient's feet, generalized aches and pains, and specific pain in the left knee. The patient also experiences some urinary leakage, which is consistent with findings from a previous visit where a urinalysis was clear. The patient reports dyspnea on exertion when walking uphill but denies chest pain or headaches. The patient maintains an active lifestyle, walking for an hour every morning. Medical History: - Hypertension - Hypercholesterolemia - Gastroesophageal reflux disease - Colon cancer, history of (1992) - Arthritis of hands Surgical History: - Colonoscopy in June 1992 - Colon surgery for colon cancer (1992) Medications: - Lisinopril 5 mg for hypertension - Cholesterol medication, identified as lisinopril 20 mg - Famotidine 40 mg for acid reflux - Vitamins, unspecified Diagnostic Results: - Lipid panel (recent): Total cholesterol 123 mg/dL, LDL 57 mg/dL, HDL 52 mg/dL. - Urinalysis (previous visit): Clear. Social History - Living Situation: The patient is a who lives with their son in a home the patient owns. - Future Planning: The patient is considering moving into a veterans' home in [place] and has the application. - Exercise: Walks for one hour every morning. - Functional Status: The patient reports feeling less steady and has arthritis in the patient's hands, which prevents golfing due to difficulty gripping clubs. - Past Employment: The patient worked in [employer] for the [employer] program at [facility] for 20 years and retired at age 62. [facility] Medical History (Updated 05/01/25 @ 09:23 by Fan Mckinley MD) GERD without esophagitis Gait instability Flatulence symptom Hand arthritis Left knee DJD Sleep apnea with use of continuous positive airway pressure (CPAP) Cancer of left colon Former smoker Abnormal colonoscopy Hyperlipidemia HTN (hypertension) Surgical History S/P partial colectomy (06/27/22) History of carpal tunnel release History of colonoscopy (~11/27/23) History of neck surgery History of appendectomy Family History Father Prostate cancer Mother No problems noted. Father No problems noted. 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 How often do you have six or more drinks on one occasion?: Never Total Score: 0 PRASANNA-7 AMB Questionnaire PRASANNA-7 Date PRASANNA - 7 assessed: 02/06/25 Source: Developed by Drs. Misha Weinberg, Bianca Thomas, Sohail Faustin and colleagues, with an educational yakov from [employer]. Review of Systems Narrative Review of Systems - General: Reports feeling about 95% well, attributing the remainder to age. - Cardiovascular: Denies chest pain. - Respiratory: Reports dyspnea on exertion when walking uphill. - Gastrointestinal: Reports excessive flatus but good bowel movements. - Genitourinary: Reports some urinary leakage. 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 - Neurological: Reports feeling unsteady. Denies headaches. All systems reviewed & are unremarkable except as reviewed in HPI and above Physical exam (Primary Care) Vital Signs: Last Vital Signs Temp 97.7 F 05/01/25 08:55 Pulse 76 05/01/25 08:55 Resp 20 05/01/25 08:55 BP 154/76 H 05/01/25 08:55 Pulse Ox 96 05/01/25 08:55 Oxygen Delivery Method Room Air 05/01/25 08:55 BMI result Body Mass Index 27.6 Tobacco/Smoking Status: Tobacco use Status Tobacco use date assessed 02/06/25 05/01/25 08:54 Patient Tobacco Use Status Former Tobacco user 05/01/25 08:54 e-Cigarette/Vaping Use Former Use 05/01/25 08:54 Thrive Assessment: Date of Thrive Assessment Date Thrive assessed 02/06/25 05/01/25 08:54 Narrative Physical Exam General: +Alert and oriented, Well nourished, No acute distress. Eye: Pupils are equal, round and reactive to light, Intact accommodation, Extraocular movements are intact, Normal conjunctiva, Vision unchanged. HENT: Normocephalic, Atraumatic, Tympanic membranes are clear, Normal hearing, Oral mucosa is moist, No pharyngeal erythema, Ear canals patent. Respiratory: Lungs CTA bilaterally, No wheeze, Respirations are non-labored, Slight shortness of breath noted on exertion. Cardiovascular: Regular rate, Regular rhythm, S1 auscultated, S2 auscultated, No murmur, Good pulses equal in all extremities, Normal peripheral perfusion, No edema. Gastrointestinal: Soft, Non-tender, Non-distended, Normal bowel sounds, No organomegaly, Increased gas noted. Musculoskeletal: Normal range of motion, Normal strength, No tenderness, No swelling, No deformity, Normal gait, Arthritis noted in hands. Integumentary: Warm, Dry, [place], Intact. Neurologic: Alert, Oriented, Normal sensory, Normal motor function, No focal defects, Cranial Nerves II-XII are grossly intact, Normal deep tendon reflexes. Psychiatric: Cooperative, Appropriate mood & affect, Normal judgment. Coding Level of Care Code Est Pt Level 4 (43097) Complex EM visit Add On G2211 Diagnoses Primary hypertension I10 Hypertension type: primary hypertension Hyperlipidemia, unspecified hyperlipidemia type E78.5 Hyperlipidemia type: unspecified Flatulence symptom R14.3 Urinary incontinence, unspecified type R32 Urinary Incontinence type: unspecified incontinence Gait instability R26.81 GERD without esophagitis K21.9 Assessment & Plan Assessment & Plan (1) HTN (hypertension): Comment: - The patient's blood pressure remains elevated at home and in the office. - The plan is to increase lisinopril from 5 mg to 10 mg daily. - The patient is advised to monitor for dizziness or lightheadedness and to revert to the 5 mg dose if these symptoms occur. - The goal is to lower blood pressure to under 140 mmHg while being mindful of the patient's age and unsteadiness. Code(s): I10 - Essential (primary) hypertension Category: Medical Qualifiers: Hypertension type: primary hypertension Qualified Code(s): I10 - Essential (primary) hypertension (2) Hyperlipidemia: Comment: - The patient's recent lipid panel is excellent, with an LDL of 57 mg/dL. - The option to discontinue the cholesterol medication was discussed - The patient expressed a desire to continue taking it. Code(s): E78.5 - Hyperlipidemia, unspecified Category: Medical Qualifiers: Hyperlipidemia type: unspecified Qualified Code(s): E78.5 - Hyperlipidemia, unspecified (3) Flatulence symptom: Comment: - The patient is bothered by excessive gas, which is sometimes embarrassing. - The issue persisted after stopping probiotics. - The patient is advised that they can restart probiotics and can follow up with their pharmacy informatics specialist, Dr. Elliott, if symptoms continue to be bothersome. Code(s): R14.3 - Flatulence Category: Medical (4) Urinary incontinence: Comment: - The patient reports some urinary leakage, suggestive of overflow incontinence. - A previous urinalysis was negative. - The patient is advised to practice timed voiding by urinating every few hours, even without an urge, to ensure the bladder is emptied. - May see a urologist, Dr. Joshua, if problems persist. Code(s): R32 - Unspecified urinary incontinence Category: Medical Qualifiers: Urinary Incontinence type: unspecified incontinence Qualified Code(s): R32 - Unspecified urinary incontinence (5) Gait instability: Comment: - The patient feels unsteady and has generalized aches. - The patient has installed safety handles in the shower. - The patient is advised to be cautious to prevent falls. - Provider agreed to sign paperwork for a [employer] home when the patient is ready to proceed. Code(s): R26.81 - Unsteadiness on feet Category: Medical (6) GERD without esophagitis: Comment: - The patient is stable on famotidine. - A 90-day refill for famotidine 40 mg will be provided. Code(s): K21.9 - Gastro-esophageal reflux disease without esophagitis Category: Medical Plan: Health Maintenance: - Exercise: The patient walks for an hour every morning and was encouraged to continue staying active. - Fall Prevention: Advised to be careful and cognizant of surroundings due to age and unsteadiness. - Future Care Planning: Discussed the patient's plan to eventually move into a [employer] home, and provider agreed to sign the necessary paperwork when the patient is ready. - Follow-up: A follow-up visit is scheduled in three months to re-evaluate blood pressure. Patient was informed and verbally consented to the use of an ambient scribe for clinic note documentation during this visit. Plan I discussed with the patient the elevated blood pressure readings at home and in the office. We agreed to increase the lisinopril dose from 5 mg to 10 mg, with the clear instruction that the patient should revert to the 5 mg dose if feelings of lightheadedness or dizziness emerge, given the patient's age and baseline unsteadiness. We reviewed the patient's excellent cholesterol results, and I explained that there is no strong evidence for cholesterol medication over the age of 80, offering to discontinue it if it was a burden; however, the patient wished to continue. We talked about management for urinary leakage, recommending behavioral strategies like timed voiding. Regarding the complaint of flatulence, I suggested the patient could contact the patient's pharmacy informatics specialist if the symptom remains bothersome. I agreed to sign paperwork for admission to a [facility] when the patient is ready. We will follow up in three months to reassess. Medications: New simvastatin 20 mg PO DAILY 90 tabs 2RF lisinopril 10 mg PO DAILY 90 tabs 0RF 90 days Changed From famotidine 40 mg PO QPM 30 days 30 tabs 0RF To famotidine 40 mg PO QPM 90 tabs 3RF 90 days Patient Instructions: - I am sending a new prescription to increase your lisinopril dose from 5 mg to 10 mg each day. - If the new 10 mg dose makes you feel lightheaded or dizzy, please go back to taking the 5 mg dose. - Continue to check your blood pressure at home and keep a record. - I have sent refills for your other medications, including a 90-day supply of famotidine. - For the urine leakage, try to use the bathroom every few hours, even if you do not feel the urge to go. - If your gas problem continues to bother you, you can call Dr. Elliott's office for an appointment. - Keep staying active and continue your daily walks. - Please schedule an appointment to see me again in about 3 months.
[2025-05-01 08:55] VITALS: BP 154/76; PULSE 76; RESP 20; TEMP 36.5; O2SAT 96; BMI 27.6
== END 2025-05-01 09:15 | disposition home or self-care (01) ==
PROVIDERS: PCP Student in an Organized Health Care Education/Training Program; Visit Provider Student in an Organized Health Care Education/Training Program
DX: I10 Essential (primary) hypertension (principal); E78.5 Hyperlipidemia, unspecified; R14.3 Flatulence; R32 Unspecified urinary incontinence; R26.81 Unsteadiness on feet; K21.9 Gastro-esophageal reflux disease without esophagitis

== ENCOUNTER → 2025-05-01 08:51 | Outpatient (BNVA) | payer MEDICARE, SELFPAY | PROVIDERS: PCP Family Medicine; Visit Provider Student in an Organized Health Care Education/Training Program | DX: I10 Essential (primary) hypertension (principal); E78.5 Hyperlipidemia, unspecified; R14.3 Flatulence; R32 Unspecified urinary incontinence; K21.9 Gastro-esophageal reflux disease without esophagitis; R26.81 Unsteadiness on feet | CPT/HCPCS: 99212 ==